=== PATIENT | female | born 1975 | race Hispanic/Latino ===

== ENCOUNTER 2019-10-01 09:40 | Inpatient (IN) | payer OTHER ==
[~2019-10-01] VITALS: Ht 167.6 cm; Wt 95.9 kg
[2019-10-01] MEDS ORDERED: SODIUM CHLORIDE 0.9% 1000ML 1,000 ML IV STA (09:41)
[2019-10-01] MEDS ORDERED: KETOROLAC TROMETHAMINE 30 MG/ML VIAL IV STA (09:41)
[2019-10-01] MEDS ORDERED: ONDANSETRON HCL INJ 2MG/ML 2ML 2 MG/ML VIAL IV STA (09:41)
--- OUTSIDE RECORDS SUMMARY | 2019-10-01 09:43 | XMS REPORT | Continuity of Care Document ---
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 Oral (F) 97.9 F 12/18/2018 [facility] Heart Rate 79 12/18/2018 [facility] Respitory Rate 16 12/18/2018 [facility] Systolic (mm Hg) 136 12/18/2018 [facility] Diastolic (mm Hg) 91 12/18/2018 [facility] Systolic (mm Hg) 143 12/18/2018 [facility] Diastolic (mm Hg) 83 12/18/2018 [facility] Respitory Rate 17 12/18/2018 [facility] Heart Rate 90 12/18/2018 [facility] Temperature Oral (F) 98.2 F 12/18/2018 [facility] Temperature Oral (F) 98.5 F 12/17/2018 [facility] Weight 97 0 12/17/2018 [facility] Respitory Rate 17 10/27/2017 [facility] Heart Rate 86 10/27/2017 [facility] Systolic (mm Hg) 113 10/27/2017 [facility] Diastolic (mm Hg) 82 10/27/2017 [facility] Temperature Oral (F) 98.5 F 10/27/2017 [facility] BMI Calculated 32.35 10/26/2017 [facility] Temperature Oral (F) 98.5 F 10/26/2017 [facility] Height 167.64 cm 10/26/2017 [facility] Weight 90.909 10/26/2017 [facility] Respitory Rate 17 10/26/2017 [facility] Systolic (mm Hg) 123 10/26/2017 [facility] Diastolic (mm Hg) 59 10/26/2017 [facility] Heart Rate 113 10/26/2017 [facility] Temperature Oral (F) 98.1 F 09/18/2017 [facility] Heart Rate 71 09/18/2017 [facility] Systolic (mm Hg) 128 09/18/2017 [facility] Diastolic (mm Hg) 75 09/18/2017 [facility] Respitory Rate 19 09/18/2017 [facility] Respitory Rate 16 09/18/2017 [facility] Heart Rate 79 09/18/2017 [facility] Systolic (mm Hg) 135 09/18/2017 [facility] Diastolic (mm Hg) 78 09/18/2017 [facility] Weight 100 09/18/2017 [facility] BMI Calculated 35.58 09/18/2017 [facility] Heart Rate 72 09/18/2017 [facility] Respitory Rate 18 09/18/2017 [facility] Height 167.64 cm 09/18/2017 [facility] Systolic (mm Hg) 144 09/18/2017 [facility] Diastolic (mm Hg) 92 09/18/2017 [facility] Temperature Oral (F) 98.3 F 09/18/2017 [facility] Systolic (mm Hg) 143 03/19/2017 [facility] Diastolic (mm Hg) 85 03/19/2017 [facility] Respitory Rate 18 03/19/2017 [facility] Heart Rate 70 03/19/2017 [facility] Temperature Oral (F) 98.1 F 03/19/2017 [facility] Temperature Oral (F) 98.1 F 03/19/2017 [facility] Weight 90.909 03/19/2017 [facility] Systolic (mm Hg) 146 03/19/2017 [facility] Diastolic (mm Hg) 105 03/19/2017 [facility] Heart Rate 71 03/19/2017 [facility] Respitory Rate 18 03/19/2017 [facility] Systolic (mm Hg) 142 03/14/2017 [facility] Diastolic (mm Hg) 88 03/14/2017 [facility] Temperature Oral (F) 98.1 F 03/14/2017 [facility] Heart Rate 84 03/14/2017 [facility] Respitory Rate 14 03/14/2017 [facility] Weight 90.909 03/13/2017 [facility] BMI Calculated 32.35 03/13/2017 [facility] Systolic (mm Hg) 146 03/13/2017 [facility] Diastolic (mm Hg) 90 03/13/2017 [facility] Height 167.64 cm 03/13/2017 [facility] Temperature Oral (F) 98.4 F 03/13/2017 [facility] Respitory Rate 20 03/13/2017 [facility] Heart Rate 80 03/13/2017 [facility] Encounters Location Location Details Encounter Type Encounter Number Reason For Visit Attending Provider ADM Date DC Date Status Source [facility] [id number] Ernst Jaswinder 03/13/2017 03/14/2017 [facility] [id number] Emily Alcanter 03/19/2017 03/19/2017 [facility] [id number] Emily Alcanter 09/18/2017 09/18/2017 [facility] [id number] Jose Luis Barbie 10/26/2017 10/27/2017 [facility] [id number] Alonso Hwang 12/17/2018 12/18/2018 [facility] [id number] Saman Vásquez 06/08/2019 06/09/2019 [facility] Procedures No Data Provided for This Section Assessment and Plan No Data Provided for This Section Plan of Care No Data Provided for This Section Social History Social History Date Source Social History TypeResponse Smoking Status Never smoker; Exposure to Tobacco Smoke None; Cigarette Smoking Last 365 Days No; Reg Smoking Cessation Counseling No entered on: 06/08/19 06/08/2019 [facility] Social History TypeResponse Smoking Status Never smoker; Exposure to Tobacco Smoke None; Cigarette Smoking Last 365 Days No; Reg Smoking Cessation Counseling No entered on: 12/17/18 12/18/2018 [facility] Family History No Data Provided for This Section Advance Directives No Data Provided for This Section Functional Status No Data Provided for This Section
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
--- OUTSIDE RECORDS SUMMARY | 2019-10-01 09:43 | XMS REPORT | Clinical Summary ---
Author Author [facility] Organization [facility] Address Unknown Phone Unavailable Care Team Providers Care Head Rigger Name Role Phone Asked, No Pcp PCP Unavailable Allergies No Known Allergies Medications End Date Status Medication Sig Dispensed Refills Start Date Active cephalexin (KEFLEX) 500 TK 1 C PO BID 0 MG capsule 7 Active gabapentin (NEURONTIN) TK ONE C PO 0 01 300 mg capsule BID 7 Active ibuprofen (ADVIL,MOTRIN) TK 1 T PO Q 6 0 03/14 600 MG tablet HOURS PRN P. 7 TK WITH FOOD Active tamsulosin (FLOMAX) 0.4 TK 1 C PO QD 30 capsule 0 1 mg capsule,extended 7 release 24hr Active ondansetron (ZOFRAN, Take 1 tablet 20 tablet 0 HYDROCHLORIDE,) 4 MG (4 mg total) 7 tablet by mouth every 8 (eight) hours as needed for nausea or vomiting. Active acetaminophen-codeine TAKE 1 TO 2 0 03/19/20 1 (TYLENOL WITH CODEINE #4) TABLETS BY 7 300-60 mg per tablet MOUTH EVERY 6 HOURS NEEDED. Active HYDROcodone-acetaminophen TAKE 1 TABLET 0 03/06 (NORCO) 5-325 mg per BY MOUTH 7 tablet EVERY 6 HOURS NEEDED P Active Problems Problem Noted Date Personal history of kidney stones 04/16/2017 Hematochezia 04/16/2017 Lethargy 04/16/2017 Urge incontinence 04/16/2017 Left ureteral stone 03/19/2017 Flank pain 03/19/2017 Nausea and vomiting 03/19/2017 Overactive bladder 03/19/2017 Family History Relation Name Status Comments Father Mother Alive Social History Date Tobacco Use Types Packs/Day Years Used Never Smoker Smokeless Tobacco: Never Used Drinks/Week oz/Week Comments Alcohol Use Defer Sex Assigned at Date Recorded Not on file Industry Job Start Date Occupation Not on file Not on file Not on file Travel End Travel History Travel Start No recent travel history available. 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
--- OUTSIDE RECORDS SUMMARY | 2019-10-01 09:43 | XMS REPORT | Summary of Care ---
Author Author [facility] Organization [facility] Address Unknown Phone Unavailable Encounter TANJA Morocho(REJI) [id number] Date(s): 03/13/17 - 03/13/17 [facility] [address] [place] [address]- [phone] Discharge Diagnosis: Calculus of ureter Discharge Disposition: Home or Self Care Attending Physician: Ernst San DO Vital Signs Most recent to 1 2 oldest [Reference Range]: Height 167.64 cm (03/13/17 5:01 PM) Temperature Oral 98.1 DegF 98.4 DegF [96.4-99.1 DegF] (03/13/17 10:17 PM) (03/13/17 5:01 PM) Blood Pressure 142/88 mmHg 146/90 mmHg [90-140/60-90 mmHg] *HI* *HI* (03/13/17 10:17 PM) (03/13/17 5:01 PM) Respiratory Rate 14 BRMIN 20 BRMIN [14-20 BRMIN] (03/13/17 10:17 PM) (03/13/17 5:01 PM) Peripheral Pulse 84 bpm 80 bpm Rate [60-100 bpm] (03/13/17 10:17 PM) (03/13/17 5:01 PM) Weight 90.909 kg (03/13/17 5:01 PM) Body Mass Index 32.35 m2 (03/13/17 5:01 PM) Problem List Condition Effective Dates Status Health Status Informan t Thyroid Resolved cancer(Confirmed) Allergies, Adverse Reactions, Alerts Substance Reaction Severity Status NKDA Active Medications Flomax 0.4 mg, 1 cap, Route: PO, Drug form: CAP, ONCE, Dosing Weight 90.909, kg, Start date: 03/13/17 21:05:00 [employer]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, Stop date: 03/13/17 21:05:00 [employer]IN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 Notes: (Same As: Flomax) "Do Not Crush" Start Date: 03/13/17 Stop Date: 03/13/17 Status: Completed Flomax 0.4 mg oral capsule 0.4 mg = 1 cap, PO, Daily, # 7 cap, 0 Refill(s) Start Date: 03/13/17 Status: Ordered Keflex 500 mg oral capsule 500 mg = 1 cap, PO, BID, X 7 day, # 14 cap, 0 Refill(s) Start Date: 03/13/17 Stop Date: 03/20/17 Status: Ordered ketOROLAC 30 mg/mL injectable solution 30 mg, 1 mL, Route: IVP, Drug form: INJ, ONCE, Dosing Weight 90.909, kg, Priorit y: STAT, Start date: 03/13/17 20:39: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 Give IM administration slowly and deeply into the muscle.Not for use > 4 days MEDICATION WASTE Product Size: 30 mgProduct Wasted: ___ mg Start Date: 03/13/17 Stop Date: 03/13/17 Status: Completed morphine Sulfate 4 mg, 1 mL, Route: IVP, Drug form: SOLN, ONCE, Dosing Weight 90.909, kg, Priorit y: STAT, Start date: 03/13/17 17:51:00 COIN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, Stop date: 03/13/17 17:51:00 COIN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 Notes: (Same as:MORPhine Sulfate) Start Date: 03/13/17 Stop Date: 03/13/17 Status: Completed Motrin 600 mg oral tablet 600 mg = 1 tab, PO, Q6H, PRN Pain, take with food, # 30 tab, 0 Refill(s) Start Date: 03/13/17 Stop Date: 03/13/17 Status: Completed ondansetron 4 mg, 2 mL, Route: IVP, Drug form: INJ, ONCE, Dosing Weight 90.909, kg, Priority : STAT, Start date: 03/13/17 17:51:00 COIN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, Stop date: 03/13/17 17:51:00 COIN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 Notes: (Same as: Zofran) MEDICATION WASTE Product Size: 4 mgProduct Was jessica: ___ mg Start Date: 03/13/17 Stop Date: 03/13/17 Status: Completed Saline Flush 0.9% 10 mL, Route: IVP, Drug Form: INJ, Dosing Weight 90.909, kg, PRN, PRN Line Flush , Start date: 03/13/17 17:51:00 COIN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, Duration: 30 day, Stop date: 04/12/17 17:50 :00 COIN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 Notes: (Same as: BD Posiflush) Start Date: 03/13/17 Stop Date: 03/13/17 Status: Discontinued Sodium Chloride 0.9% (Bolus) IV 1,000 mL, 2,000 ml/hr, Infuse Over: 30 minutes, Route: IV, 1,000, Drug form: INJ , ONCE, Priority: STAT, Dosing Weight 90.909 kg, Start date: 03/13/17 17:51:[address], Duration: 1 doses or times, Stop date: 03/13/17 17:51:00 COIN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 Start Date: 03/13/17 Stop Date: 03/13/17 Status: Completed Tylenol with Codeine #3 oral tablet 1 - 2 tab, PO, Q4H, PRN Pain, X 2 day, # 20 tab, 0 Refill(s) Start Date: 03/13/17 Stop Date: 03/15/17 Status: Completed Zofran ODT 4 mg, 1 tab, Route: PO, Drug form: TABDIS, ONCE, Dosing Weight 90.909, kg, Prior ity: STAT, Start date: 03/13/17 22:24:00 COIN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, Stop date: 03/13/17 22:24:00 COIN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 Notes: (Same as: Zofran ODT) Start Date: 03/13/17 Stop Date: 03/13/17 Status: Completed Results ELECTROLYTES Most recent to 1 oldest [Reference Range]: Sodium Lvl [135-145 139 mEq/L mEq/L] (03/13/17 6:04 PM) Potassium Lvl 3.7 mEq/L [3.5-5.1 mEq/L] (03/13/17 6:04 PM) Chloride Lvl [95-109 108 mEq/L mEq/L] (03/13/17 6:04 PM) CO2 [24-32 mEq/L] 24 mEq/L (03/13/17 6:04 PM) AGAP [10.0-20.0 10.7 mEq/L mEq/L] (03/13/17 6:04 PM) CHEM PANEL Most recent to 1 oldest [Reference Range]: Creatinine Lvl 0.80 mg/dL [0.50-1.40 mg/dL] (03/13/17 6:04 PM) eGFR 91 mL/min/1.73m2 1 *NA* (03/13/17:04 PM) BUN [7-22 mg/dL] 10 mg/dL (03/13/17 6:04 PM) B/C Ratio [6-25] 12 (03/13/17 6:04 PM) Glucose Lvl [70-99 119 mg/dL mg/dL] *HI* (03/13/17 6:04 PM) Total Protein 7.3 g/dL [6.4-8.4 g/dL] (03/13/17:04 PM) Albumin Lvl [3.5-5.0 3.6 g/dL g/dL] (03/13/17 6:04 PM) Globulin [2.7-4.2 3.7 g/dL g/dL] (03/13/17 6:04 PM) A/G Ratio [0.7-1.6] 1.0 (03/13/17 6:04 PM) Calcium Lvl 9.4 mg/dL [8.5-10.5 mg/dL] (03/13/17 6:04 PM) ALT [0-65 unit/L] 101 unit/L *HI* (03/13/17 6:04 PM) AST [0-37 unit/L] 57 unit/L *HI* (03/13/17 6:04 PM) Alk Phos [39-136 89 unit/L unit/L] (03/13/17 6:04 PM) Bili Total [0.2-1.3 0.9 mg/dL mg/dL] (03/13/17 6:04 PM) Lipase Lvl [73-393 110 unit/L unit/L] (03/13/17 6:04 PM) 1Result Comment: The eGFR is calculated [...] be mul tiplied by the estimated BMI. CARDIAC ENZYMES Most recent to 1 oldest [Reference Range]: Total CK [12-191 100 unit/L unit/L] (03/13/17 6:04 PM) CK MB [0.5-3.6 1.2 ng/mL ng/mL] (03/13/17 6:04 PM) CK MB Index 1.2 [0.0-2.5] (03/13/17 6:04 PM) Troponin-I 0.03 ng/mL [0.00-0.40 ng/mL] (03/13/17 6:04 PM) URINE CHEM Most recent to 1 oldest [Reference Range]: U Preg [Negative] Negative (03/13/17 6:04 PM) URINE AND STOOL Most recent to 1 oldest [Reference Range]: UA Turbidity [Clear] Slight *ABN* (03/13/17 6:04 PM) UA Color [Yellow] Yellow *NA* (03/13/17 6:04 PM) UA pH [5.0-8.0] 6.0 (03/13/17 6:04 PM) UA Spec Grav 1.015 [<=1.030] (03/13/17 6:04 PM) UA Glucose [Negative Negative mg/dL mg/dL] *NA* (03/13/17 6:04 PM) UA Blood [Negative] Large *ABN* (03/13/17 6:04 PM) UA Ketones [Negative Negative mg/dL mg/dL] *NA* (03/13/17 6:04 PM) UA Protein [Negative Negative mg/dL mg/dL] (03/13/17 6:04 PM) UA Urobilinogen <=1.0 mg/dL [0.1-1.0 mg/dL] *NA* (03/13/17 6:04 PM) UA Bili [Negative] Negative *NA* (03/13/17 6:04 PM) UA Leuk Est Negative [Negative] (03/13/17 6:04 PM) UA Nitrite Negative [Negative] (03/13/17 6:04 PM) UA WBC [0-5 /HPF] 15 /HPF *HI* (03/13/17 6:04 PM) UA RBC [0-2 /HPF] >182 /HPF *HI* (03/13/17 6:04 PM) UA Bacteria [None Occasional /HPF Seen /HPF] *NA* (03/13/17 6:04 PM) UA Sq Epi [Few /LPF] Few /LPF *NA* (03/13/17 6:04 PM) HEMATOLOGY Most recent to 1 oldest [Reference Range]: WBC [3.7-10.4 K/CMM] 10.3 K/CMM (03/13/17 6:04 PM) RBC [4.20-5.40 4.74 M/CMM M/CMM] (03/13/17 6:04 PM) Hgb [12.0-16.0 g/dL] 13.7 g/dL (03/13/17 6:04 PM) Hct [36.0-48.0 %] 41.1 % (03/13/17 6:04 PM) MCV [80.0-98.0 fL] 86.9 fL (03/13/17 6:04 PM) MCH [27.0-31.0 pg] 29.0 pg (03/13/17 6:04 PM) MCHC [32.0-36.0 33.4 g/dL g/dL] (03/13/17 6:04 PM) RDW [11.5-14.5 %] 16.1 % *HI* (03/13/17 6:04 PM) Platelet [133-450 219 K/CMM K/CMM] (03/13/17 6:04 PM) MPV [7.4-10.4 fL] 9.6 fL (03/13/17 6:04 PM) Segs [45.0-75.0 %] 77.8 % *HI* (03/13/17 6:04 PM) Lymphocytes 14.6 % [20.0-40.0 %] *LOW* (03/13/17 6:04 PM) Monocytes [2.0-12.0 5.6 % %] (03/13/17 6:04 PM) Eosinophils [0.0-4.0 1.0 % %] (03/13/17 6:04 PM) Basophils [0.0-1.0 1.0 % %] (03/13/17 6:04 PM) Segs-Bands # 8.0 K/CMM [1.5-8.1 K/CMM] (03/13/17 6:04 PM) Lymphocytes # 1.5 K/CMM [1.0-5.5 K/CMM] (03/13/17 6:04 PM) Monocytes # [0.0-0.8 0.6 K/CMM K/CMM] (03/13/17 6:04 PM) Eosinophils # 0.1 K/CMM [0.0-0.5 K/CMM] (03/13/17 6:04 PM) Basophils # [0.0-0.2 0.1 K/CMM K/CMM] (03/13/17 6:04 PM) Immunizations No data available for this section Procedures No data available for this section Social History Social History Type Response Smoking Status Never smoker; Exposure to T obacco Smoke None; Cigarette Smoking Last 365 Days No; Reg Smoking Cessation Counseli ng No Assessment and Plan No data available for this section
--- OUTSIDE RECORDS SUMMARY | 2019-10-01 09:43 | XMS REPORT | Summary of Care ---
Author Author [facility] o[facility]ital Organization [facility] Address Unknown Phone Unavailable Encounter HQ Rashawn(FIN) [id number] Date(s): 10/26/17 - 10/26/17 [facility] [address] [place] [address]- [phone] Encounter Diagnosis Dysmenorrhea (Discharge Diagnosis) - 10/26/17 Abnormal vaginal bleeding (Discharge Diagnosis) - 10/26/17 Discharge Disposition: Home or Self Care Attending Physician: Jose Luis Valentin MD Vital Signs Most recent to 1 2 oldest [Reference Range]: Height 167.64 cm (10/26/17 5:10 PM) Temperature Oral 98.5 DegF 98.5 DegF [96.4-99.1 DegF] (10/26/17 10:13 PM) (10/26/17 5:10 PM) Blood Pressure 113/82 mmHg 123/59 mmHg [90-140/60-90 mmHg] (10/26/17 10:13 PM) (10/26/17 5:10 PM) Respiratory Rate 17 BRMIN 17 BRMIN [14-20 BRMIN] (10/26/17 10:13 PM) (10/26/17 5:10 PM) Peripheral Pulse 86 bpm 113 bpm Rate [60-100 bpm] (10/26/17 10:13 PM) *HI* (10/26/17 5:10 PM) Weight 90.909 kg (10/26/17 5:10 PM) Body Mass Index 32.35 m2 (10/26/17 5:10 PM) Problem List Condition Effective Dates Status Health Status Informan t Thyroid Resolved cancer(Confirmed) Allergies, Adverse Reactions, Alerts Substance Reaction Severity Status NKDA Active Medications ibuprofen 800 mg, Route: PO, Drug form: TAB, ONCE, Dosing Weight 90.909, kg, Priority: STA T, Start date: 10/26/17 19:02:00 CDT, Stop date: 10/26/17 19:02:00 CDT Start Date: 10/26/17 Stop Date: 10/26/17 Status: Completed morphine Sulfate 4 mg, 1 mL, Route: IVP, Drug form: SOLN, ONCE, Dosing Weight 90.909, kg, Priorit y: STAT, Start date: 10/26/17 22:07:00 CDT, Stop date: 10/26/17 22:07:00 CDT Notes: (Same as:MORPhine Sulfate) Start Date: 10/26/17 Stop Date: 10/26/17 Status: Completed [place] 10/325 oral tablet 1 tab, Route: PO, Drug Form: TAB, Dosing Weight 90.909, kg, ONCE, STAT, Start da te: 10/26/17 19:02:00 CDT, Stop date: 10/26/17 19:02:00 CDT Start Date: 10/26/17 Stop Date: 10/26/17 Status: Completed Tylenol with Codeine #3 oral tablet 1 tab, PO, Q6H, PRN Pain Score 4-6, X 5 day, # 30 tab, 0 Refill(s) Start Date: 10/26/17 Stop Date: 10/31/17 Status: Ordered Results ELECTROLYTES Most recent to 1 oldest [Reference Range]: Sodium Lvl [135-145 138 mEq/L mEq/L] (10/26/17 5:51 PM) Potassium Lvl 3.6 mEq/L [3.5-5.1 mEq/L] (10/26/17 5:51 PM) Chloride Lvl [95-109 104 mEq/L mEq/L] (10/26/17 5:51 PM) CO2 [24-32 mEq/L] 25 mEq/L (10/26/17 5:51 PM) AGAP [10.0-20.0 12.6 mEq/L mEq/L] (10/26/17 5:51 PM) CHEM PANEL Most recent to 1 oldest [Reference Range]: Creatinine Lvl 0.70 mg/dL [0.50-1.40 mg/dL] (10/26/17 5:51 PM) eGFR 107 mL/min/1.73m2 1 *NA* (10/26/17 5:51 PM) BUN [7-22 mg/dL] 9 mg/dL (10/26/17 5:51 PM) B/C Ratio [6-25] 13 (10/26/17 5:51 PM) Glucose Lvl [70-99 96 mg/dL mg/dL] (10/26/17 5:51 PM) Total Protein 7.6 g/dL [6.4-8.4 g/dL] (10/26/17 5:51 PM) Albumin Lvl [3.5-5.0 3.5 g/dL g/dL] (10/26/17 5:51 PM) Globulin [2.7-4.2 4.1 g/dL g/dL] (10/26/17 5:51 PM) A/G Ratio [0.7-1.6] 0.9 (10/26/17 5:51 PM) Calcium Lvl 9.5 mg/dL [8.5-10.5 mg/dL] (10/26/17 5:51 PM) ALT [0-65 unit/L] 69 unit/L *HI* (10/26/17 5:51 PM) AST [0-37 unit/L] 28 unit/L (10/26/17 5:51 PM) Alk Phos [39-136 96 unit/L unit/L] (10/26/17 5:51 PM) Bili Total [0.2-1.3 0.6 mg/dL mg/dL] (10/26/17 5:51 PM) 1Result Comment: The eGFR is calculated [...] be mul tiplied by the estimated BMI. ENDOCRINOLOGY Most recent to 1 oldest [Reference Range]: S Preg [Negative] Negative *NA* (10/26/17 5:51 PM) URINE AND STOOL Most recent to 1 oldest [Reference Range]: UA Turbidity [Clear] Clear (10/26/17 5:51 PM) UA Color [Yellow] Yellow *NA* (10/26/17 5:51 PM) UA pH [5.0-8.0] 5.0 (10/26/17 5:51 PM) UA Spec Grav 1.017 [<=1.030] (10/26/17 5:51 PM) UA Glucose [Negative Negative mg/dL mg/dL] *NA* (10/26/17 5:51 PM) UA Blood [Negative] Large *ABN* (10/26/17 5:51 PM) UA Ketones [Negative Trace mg/dL mg/dL] *ABN* (10/26/17 5:51 PM) UA Protein [Negative 30 mg/dL mg/dL] *ABN* (10/26/17 5:51 PM) UA Urobilinogen <=1.0 mg/dL [0.1-1.0 mg/dL] *NA* (10/26/17 5:51 PM) UA Bili [Negative] Negative *NA* (10/26/17 5:51 PM) UA Leuk Est Negative [Negative] (10/26/17 5:51 PM) UA Nitrite Negative [Negative] (10/26/17 5:51 PM) UA WBC [0-5 /HPF] 1 /HPF (10/26/17 5:51 PM) UA RBC [0-2 /HPF] >182 /HPF *HI* (10/26/17 5:51 PM) UA Bacteria [None Occasional /HPF Seen /HPF] *NA* (10/26/17 5:51 PM) UA Sq Epi [Few /LPF] Occasional /LPF *NA* (10/26/17 5:51 PM) UA Mucus [None Seen Few /LPF /LPF] *NA* (10/26/17 5:51 PM) HEMATOLOGY Most recent to 1 oldest [Reference Range]: WBC [3.7-10.4 K/CMM] 11.1 K/CMM *HI* (10/26/17 5:51 PM) RBC [4.20-5.40 5.04 M/CMM M/CMM] (10/26/17 5:51 PM) Hgb [12.0-16.0 g/dL] 13.4 g/dL (10/26/17 5:51 PM) Hct [36.0-48.0 %] 41.1 % (10/26/17 5:51 PM) MCV [80.0-98.0 fL] 81.6 fL (10/26/17 5:51 PM) MCH [27.0-31.0 pg] 26.5 pg *LOW* (10/26/17 5:51 PM) MCHC [32.0-36.0 32.5 g/dL g/dL] (10/26/17 5:51 PM) RDW [11.5-14.5 %] 21.4 % *HI* (10/26/17 5:51 PM) MPV [7.4-10.4 fL] 9.4 fL (10/26/17 5:51 PM) Platelet [133-450 270 K/CMM K/CMM] (10/26/17 5:51 PM) Segs [45.0-75.0 %] 74.1 % (10/26/17 5:51 PM) Lymphocytes 18.1 % [20.0-40.0 %] *LOW* (10/26/17 5:51 PM) Monocytes [2.0-12.0 6.2 % %] (10/26/17 5:51 PM) Eosinophils [0.0-4.0 1.0 % %] (10/26/17 5:51 PM) Basophils [0.0-1.0 0.6 % %] (10/26/17 5:51 PM) Segs-Bands # 8.2 K/CMM [1.5-8.1 K/CMM] *HI* (10/26/17 5:51 PM) Lymphocytes # 2.0 K/CMM [1.0-5.5 K/CMM] (10/26/17 5:51 PM) Monocytes # [0.0-0.8 0.7 K/CMM K/CMM] (10/26/17 5:51 PM) Eosinophils # 0.1 K/CMM [0.0-0.5 K/CMM] (10/26/17 5:51 PM) Basophils # [0.0-0.2 0.1 K/CMM K/CMM] (10/26/17 5:51 PM) Immunizations No data available for this section Procedures No data available for this section Social History Social History Type Response Smoking Status Never smoker; Exposure to T obacco Smoke None; Cigarette Smoking Last 365 Days No; Reg Smoking Cessation Counseli ng No entered on: 10/26/17 Assessment and Plan No data available for this section
--- OUTSIDE RECORDS SUMMARY | 2019-10-01 09:43 | XMS REPORT | Summary of Care ---
Author Author [facility] Organization [facility] Address Unknown Phone Unavailable Encounter HQ Rashawn(REJI) [id number] Date(s): 06/08/19 - 06/08/19 [facility] [address] [place] [address]- Encounter Diagnosis Urolithiasis (Discharge Diagnosis) - 06/08/19 Flank pain (Discharge Diagnosis) - 06/08/19 Discharge Disposition: Home or Self Care Attending Physician: Saman Vásquez DO Vital Signs Most recent to 1 2 oldest [Reference Range]: Temperature Oral 98.9 DegF 98 DegF [96.4-99.1 DegF] (06/08/19 8:18 PM) (06/08/19 2:18 PM) Blood Pressure 136/82 mmHg 142/99 mmHg [90-140/60-90 mmHg] (06/08/19 8:18 PM) *HI* (06/08/19 2:18 PM) Respiratory Rate 16 BRMIN 20 BRMIN [14-20 BRMIN] (06/08/19 8:18 PM) (06/08/19 2:18 PM) Peripheral Pulse 72 bpm 66 bpm Rate [60-100 bpm] (06/08/19 8:18 PM) (06/08/19 2:18 PM) Weight 118.182 kg (06/08/19 2:18 PM) Problem List Condition Effective Dates Status Health Status Informan t Thyroid Resolved cancer(Confirmed) Allergies, Adverse Reactions, Alerts No Known Medication Allergies Medications Flomax 0.4 mg oral capsule 0.4 mg = 1 cap, PO, Daily, # 7 cap, 0 Refill(s) Start Date: 06/08/19 Stop Date: 06/15/19 Status: Ordered Motrin 800 mg oral tablet 800 mg = 1 tab, PO, Q8H, PRN Pain, Take with food, X 5 day, # 30 tab, 0 Refill(s ) Start Date: 06/08/19 Stop Date: 06/13/19 Status: Ordered Saline Flush 0.9% 10 mL, Route: IVP, Drug Form: INJ, Dosing Weight 97, kg, PRN, PRN Line Flush, St art date: 06/08/19 14:21:00 DROP MAN, Duration: 30 day, Stop date: 07/08/19 14:20:00 DROP MAN, 0 Notes: (Same as: BD Posiflush) Start Date: 06/08/19 Stop Date: 06/08/19 Status: Discontinued Tylenol with Codeine #3 oral tablet 1 tab, PO, Q6H, PRN Pain Score 4-6, X 5 day, # 30 tab, 0 Refill(s) Start Date: 06/08/19 Stop Date: 06/13/19 Status: Ordered Zofran ODT 4 mg oral tablet, disintegrating 4 mg = 1 tab, PO, BID, PRN Nausea and Vomiting, Dissolve tab under tongue, # 10 tab, 0 Refill(s) Start Date: 06/08/19 Stop Date: 06/13/19 Status: Ordered Results Most recent to 1 oldest [Reference Range]: Neutrophils # 4.9 K/CMM [1.5-8.1 K/CMM] (06/08/19 2:30 PM) Lymphocytes # 3.2 K/CMM [1.0-5.5 K/CMM] (06/08/19 2:30 PM) Monocytes # [0.0-0.8 0.5 K/CMM K/CMM] (06/08/19 2:30 PM) Eosinophils # 0.2 K/CMM [0.0-0.5 K/CMM] (06/08/19 2:30 PM) Basophils # [0.0-0.2 0.1 K/CMM K/CMM] (06/08/19 2:30 PM) eGFR 110 mL/min/1.73m2 1 *NA* (06/08/19 2:30 PM) A/G Ratio [0.7-1.6] 1.0 (06/08/19 2:30 PM) Albumin Lvl [3.5-5.0 3.7 g/dL g/dL] (06/08/19 2:30 PM) Alk Phos [39-136 99 unit/L unit/L] (06/08/19 2:30 PM) ALT [0-65 unit/L] 46 unit/L (06/08/19 2:30 PM) AGAP [10.0-20.0 6.6 mEq/L mEq/L] *LOW* (06/08/19 2:30 PM) AST [0-37 unit/L] 20 unit/L (06/08/19 2:30 PM) B/C Ratio [6-25] 15 (06/08/19 2:30 PM) Basophils [0.0-1.0 0.7 % %] (06/08/19 2:30 PM) BUN [7-22 mg/dL] 9 mg/dL (06/08/19 2:30 PM) Calcium Lvl 9.8 mg/dL [8.5-10.5 mg/dL] (06/08/19 2:30 PM) Chloride Lvl [95-109 110 mEq/L mEq/L] *HI* (06/08/19 2:30 PM) CO2 [24-32 mEq/L] 26 mEq/L (06/08/19 2:30 PM) Creatinine Lvl 0.62 mg/dL [0.50-1.40 mg/dL] (06/08/19 2:30 PM) Eosinophils [0.0-4.0 2.7 % %] (06/08/19 2:30 PM) Globulin [2.7-4.2 3.7 g/dL g/dL] (06/08/19 2:30 PM) Glucose Lvl [70-99 103 mg/dL mg/dL] *HI* (06/08/19 2:30 PM) Hct [36.0-48.0 %] 43.5 % (06/08/19 2:30 PM) Hgb [12.0-16.0 g/dL] 14.6 g/dL (06/08/19 2:30 PM) INR [0.85-1.17] 0.96 (06/08/19 2:30 PM) Potassium Lvl 3.6 mEq/L [3.5-5.1 mEq/L] (06/08/19 2:30 PM) Lipase Lvl [73-393 90 unit/L unit/L] (06/08/19 2:30 PM) Lymphocytes 36.4 % [20.0-40.0 %] (06/08/19 2:30 PM) MCH [27.0-31.0 pg] 30.4 pg (06/08/19 2:30 PM) MCHC [32.0-36.0 33.5 g/dL g/dL] (06/08/19 2:30 PM) MCV [80.0-98.0 fL] 90.7 fL (06/08/19 2:30 PM) Monocytes [2.0-12.0 5.3 % %] (06/08/19 2:30 PM) MPV [7.4-10.4 fL] 9.7 fL (06/08/19 2:30 PM) Sodium Lvl [135-145 139 mEq/L mEq/L] (06/08/19 2:30 PM) Platelet [133-450 239 K/CMM K/CMM] (06/08/19 2:30 PM) Segs [45.0-75.0 %] 54.9 % (06/08/19 2:30 PM) Total Protein 7.4 g/dL [6.4-8.4 g/dL] (06/08/19 2:30 PM) PT [12.0-14.7 12.8 seconds seconds] (06/08/19 2:30 PM) PTT [22.9-35.8 26.0 seconds seconds] (06/08/19 2:30 PM) RBC [4.20-5.40 4.80 M/CMM M/CMM] (06/08/19 2:30 PM) RDW [11.5-14.5 %] 14.7 % *HI* (06/08/19 2:30 PM) S Preg [Negative] Negative *NA* (06/08/19 2:30 PM) Bili Total [0.2-1.3 0.9 mg/dL mg/dL] (06/08/19 2:30 PM) UA Bili [Negative] Negative *NA* (06/08/19 2:30 PM) UA Blood [Negative] Large *ABN* (06/08/19 2:30 PM) UA Color Red *NA* (06/08/19 2:30 PM) UA Glucose [Negative Negative mg/dL mg/dL] *NA* (06/08/19 2:30 PM) UA Ketones [Negative Negative mg/dL mg/dL] *NA* (06/08/19 2:30 PM) UA Leuk Est Negative [Negative] (06/08/19 2:30 PM) UA Nitrite Negative [Negative] (06/08/19 2:30 PM) UA pH [5.0-8.0] 6.0 (06/08/19 2:30 PM) UA Protein [Negative 100 mg/dL mg/dL] *ABN* (06/08/19 2:30 PM) UA RBC [0-2 /HPF] >182 /HPF *HI* (06/08/19 2:30 PM) UA Spec Grav 1.025 [<=1.030] (06/08/19 2:30 PM) UA Sq Epi None Seen *NA* (06/08/19 2:30 PM) UA Turbidity [Clear] Marked *ABN* (06/08/19 2:30 PM) UA Urobilinogen <=1.0 mg/dL [0.1-1.0 mg/dL] *NA* (06/08/19 2:30 PM) UA [place] Yeast [None Many /HPF Seen /HPF] *ABN* (06/08/19 2:30 PM) WBC [3.7-10.4 K/CMM] 8.9 K/CMM (06/08/19 2:30 PM) 1Result Comment: The eGFR is calculated [...] Smoking Cessation Counseli ng No entered on: 06/08/19 Assessment and Plan No data available for this section
--- OUTSIDE RECORDS SUMMARY | 2019-10-01 09:43 | XMS REPORT | Summary of Care ---
Author Author [facility] Organization [facility] Address Unknown Phone Unavailable Encounter TANJA Morocho(REJI) [id number] Date(s): 03/18/17 - 03/19/17 [facility] [address] [place] [address]- Discharge Diagnosis: Kidney stone on left side Discharge Disposition: Home or Self Care Attending Physician: Emily Abbasi MD Vital Signs Most recent to 1 2 oldest [Reference Range]: Temperature Oral 98.1 DegF 98.1 DegF [96.4-99.1 DegF] (03/19/17 12:44 AM) (03/18/17 8:45 PM) Blood Pressure 143/85 mmHg 146/105 mmHg [90-140/60-90 mmHg] *HI* *HI* (03/19/17 12:44 AM) (03/18/17 8:45 PM) Respiratory Rate 18 BRMIN 18 BRMIN [14-20 BRMIN] (03/19/17 12:44 AM) (03/18/17 8:45 PM) Peripheral Pulse 70 bpm 71 bpm Rate [60-100 bpm] (03/19/17 12:44 AM) (03/18/17 8:45 PM) Weight 90.909 kg (03/18/17 8:45 PM) Problem List Condition Effective Dates Status Health Status Informan t Thyroid Resolved cancer(Confirmed) Allergies, Adverse Reactions, Alerts Substance Reaction Severity Status NKDA Active Medications ketOROLAC 30 mg/mL injectable solution 30 mg, Route: IV, ONCE, Dosing Weight 90.909, kg, Start date: 03/18/17 23:08:00 GATE AGENT, Stop date: 03/18/17 23:08:00 GATE AGENT Start Date: 03/18/17 Stop Date: 03/18/17 Status: Completed morphine Sulfate 4 mg, Route: IVP, ONCE, Dosing Weight 90.909, kg, Start date: 03/19/17 0:19:[address], Stop date: 03/19/17 0:19:00 GATE AGENT Start Date: 03/19/17 Stop Date: 03/19/17 Status: Completed morphine Sulfate 4 mg, 1 mL, Route: IVP, Drug form: SOLN, ONCE, Dosing Weight 90.909, kg, Priorit y: STAT, Start date: 03/18/17 20:47:00 GATE AGENT, Stop date: 03/18/17 20:47:00 GATE AGENT Notes: (Same as:MORPhine Sulfate) Start Date: 03/18/17 Stop Date: 03/18/17 Status: Completed ondansetron 4 mg, 2 mL, Route: IVP, Drug form: INJ, ONCE, Dosing Weight 90.909, kg, Priority : STAT, Start date: 03/18/17 20:47:00 GATE AGENT, Stop date: 03/18/17 20:47:00 GATE AGENT Notes: (Same as: Adonis) MEDICATION WASTE Product Size: 4 mgProduct Was jessica: ___ mg Start Date: 03/18/17 Stop Date: 03/18/17 Status: Completed Saline Flush 0.9% 10 mL, Route: IVP, Drug Form: INJ, Dosing Weight 90.909, kg, PRN, PRN Line Flush , Start date: 03/18/17 20:47:00 GATE AGENT, Duration: 30 day, Stop date: 04/17/17 20:46 :00 GATE AGENT Notes: (Same as: BD Posiflush) Start Date: 03/18/17 Stop Date: 03/19/17 Status: Discontinued Sodium Chloride 0.9% (Bolus) IV 1,000 mL, 2,000 ml/hr, Infuse Over: 30 minutes, Route: IV, 1,000, Drug form: INJ , ONCE, Priority: STAT, Dosing Weight 90.909 kg, Start date: 03/18/17 20:47:[address], Stop date: 03/18/17 20:47:00 GATE AGENT Start Date: 03/18/17 Stop Date: 03/18/17 Status: Completed Tylenol with Codeine #4 oral tablet 1 - 2 tab, PO, Q6H, PRN Pain, X 4 day, # 32 tab, 0 Refill(s) Start Date: 03/19/17 Stop Date: 03/23/17 Status: Ordered Zofran ODT 4 mg oral tablet, disintegrating 4 mg = 1 tab, PO, BID, PRN Nausea and Vomiting, Dissolve tab under tongue, # 6 t ab, 0 Refill(s) Start Date: 03/19/17 Stop Date: 03/22/17 Status: Ordered Results ELECTROLYTES Most recent to 1 oldest [Reference Range]: Sodium Lvl [135-145 136 mEq/L mEq/L] (03/18/17 9:34 PM) Potassium Lvl 3.2 mEq/L [3.5-5.1 mEq/L] *LOW* (03/18/17 9:34 PM) Chloride Lvl [95-109 102 mEq/L mEq/L] (03/18/17 9:34 PM) CO2 [24-32 mEq/L] 24 mEq/L (03/18/17 9:34 PM) AGAP [10.0-20.0 13.2 mEq/L mEq/L] (03/18/17 9:34 PM) CHEM PANEL Most recent to 1 oldest [Reference Range]: Creatinine Lvl 0.86 mg/dL [0.50-1.40 mg/dL] (03/18/17 9:34 PM) eGFR 84 mL/min/1.73m2 1 *NA* (03/18/17 9:34 PM) BUN [7-22 mg/dL] 10 mg/dL (03/18/17 9:34 PM) B/C Ratio [6-25] 12 (03/18/17 9:34 PM) Glucose Lvl [70-99 96 mg/dL mg/dL] (03/18/17 9:34 PM) Total Protein 7.5 g/dL [6.4-8.4 g/dL] (03/18/17 9:34 PM) Albumin Lvl [3.5-5.0 3.1 g/dL g/dL] *LOW* (03/18/17 9:34 PM) Globulin [2.7-4.2 4.4 g/dL g/dL] *HI* (03/18/17 9:34 PM) A/G Ratio [0.7-1.6] 0.7 (03/18/17 9:34 PM) Calcium Lvl 9.3 mg/dL [8.5-10.5 mg/dL] (03/18/17 9:34 PM) ALT [0-65 unit/L] 54 unit/L (03/18/17 9:34 PM) AST [0-37 unit/L] 23 unit/L (03/18/17 9:34 PM) Alk Phos [39-136 103 unit/L unit/L] (03/18/17 9:34 PM) Bili Total [0.2-1.3 0.8 mg/dL mg/dL] (03/18/17 9:34 PM) Lipase Lvl [73-393 217 unit/L unit/L] (03/18/17 9:34 PM) 1Result Comment: The eGFR is calculated [...] [Reference Range]: S Preg [Negative] Negative *NA* (03/18/17 9:34 PM) URINE AND STOOL Most recent to 1 oldest [Reference Range]: UA Turbidity [Clear] Clear (03/18/17 9:46 PM) UA Color [Yellow] Yellow *NA* (03/18/17 9:46 PM) UA pH [5.0-8.0] 5.0 (03/18/17 9:46 PM) UA Spec Grav 1.026 [<=1.030] (03/18/17 9:46 PM) UA Glucose [Negative Negative mg/dL mg/dL] *NA* (03/18/17 9:46 PM) UA Blood [Negative] Small *ABN* (03/18/17 9:46 PM) UA Ketones [Negative 80 mg/dL mg/dL] *ABN* (03/18/17 9:46 PM) UA Protein [Negative 30 mg/dL mg/dL] *ABN* (03/18/17 9:46 PM) UA Urobilinogen <=1.0 mg/dL [0.1-1.0 mg/dL] *NA* (03/18/17 9:46 PM) UA Bili [Negative] Negative *NA* (03/18/17 9:46 PM) UA Leuk Est Negative [Negative] (03/18/17 9:46 PM) UA Nitrite Negative [Negative] (03/18/17 9:46 PM) UA WBC [0-5 /HPF] 4 /HPF (03/18/17 9:46 PM) UA RBC [0-2 /HPF] 6 /HPF *HI* (03/18/17 9:46 PM) UA Sq Epi [Few /LPF] Occasional /LPF *NA* (03/18/17 9:46 PM) UA CaOx Odalys [None Occasional /HPF Seen /HPF] *NA* (03/18/17 9:46 PM) UA Mucus [None Seen Few /LPF /LPF] *NA* (03/18/17 9:46 PM) HEMATOLOGY Most recent to 1 oldest [Reference Range]: WBC [3.7-10.4 K/CMM] 8.5 K/CMM (03/18/17 9:34 PM) RBC [4.20-5.40 4.53 M/CMM M/CMM] (03/18/17 9:34 PM) Hgb [12.0-16.0 g/dL] 13.0 g/dL (03/18/17 9:34 PM) Hct [36.0-48.0 %] 38.3 % (03/18/17 9:34 PM) MCV [80.0-98.0 fL] 84.5 fL (03/18/17 9:34 PM) MCH [27.0-31.0 pg] 28.8 pg (03/18/17 9:34 PM) MCHC [32.0-36.0 34.1 g/dL g/dL] (03/18/17 9:34 PM) RDW [11.5-14.5 %] 15.6 % *HI* (03/18/17 9:34 PM) Platelet [133-450 257 K/CMM K/CMM] (03/18/17 9:34 PM) MPV [7.4-10.4 fL] 9.3 fL (03/18/17 9:34 PM) Segs [45.0-75.0 %] 69.8 % (03/18/17 9:34 PM) Lymphocytes 21.4 % [20.0-40.0 %] (03/18/17 9:34 PM) Monocytes [2.0-12.0 6.7 % %] (03/18/17 9:34 PM) Eosinophils [0.0-4.0 1.6 % %] (03/18/17 9:34 PM) Basophils [0.0-1.0 0.5 % %] (03/18/17 9:34 PM) Segs-Bands # 5.9 K/CMM [1.5-8.1 K/CMM] (03/18/17 9:34 PM) Lymphocytes # 1.8 K/CMM [1.0-5.5 K/CMM] (03/18/17 9:34 PM) Monocytes # [0.0-0.8 0.6 K/CMM K/CMM] (03/18/17 9:34 PM) Eosinophils # 0.1 K/CMM [0.0-0.5 K/CMM] (03/18/17 9:34 PM) Immunizations No data available for this section Procedures No data available for this section Social History Social History Type Response Smoking Status Never smoker; Exposure to T obacco Smoke None; Cigarette Smoking Last 365 Days No; Reg Smoking Cessation Counseli ng No Assessment and Plan No data available for this section
--- OUTSIDE RECORDS SUMMARY | 2019-10-01 09:43 | XMS REPORT | Summary of Care ---
Author Author [facility] Address Unknown Phone Unavailable Encounter HQ Rashawn(FIN) [id number] Date(s): 09/18/17 - 09/18/17 [facility] [address] [place] [address]- Encounter Diagnosis Fibroids (Discharge Diagnosis) - 09/18/17 Abdominal pain in female (Discharge Diagnosis) - 09/18/17 Discharge Disposition: Home or Self Care Attending Physician: Emily Abbasi MD Vital Signs 1 2 3 Most recent to oldest [Reference Range]: 167.64 cm (09/18/17 8:37 AM) Height 98.1 DegF (09/18/17 1:37 PM) 98.3 DegF (09/18/17 8:37 AM) Temperature Oral [96.4-99.1 DegF] 128/75 mmHg (09/18/17 1:37 PM) 135/78 mmHg (09/18/17 10:56 AM) 144/92 mmHg *HI* (09/18/17 8:37 AM) Blood Pressure [90-140/60-90 mmHg] 19 BRMIN (09/18/17 1:37 PM) 16 BRMIN (09/18/17 10:56 AM) 18 BRMIN (09/18/17 8:37 AM) Respiratory Rate [14-20 BRMIN] 71 bpm (09/18/17 1:37 PM) 79 bpm (09/18/17 10:56 AM) 72 bpm (09/18/17 8:37 AM) Peripheral Pulse Rate [60-100 bpm] 100 kg (09/18/17 8:37 AM) Weight 35.58 m2 (09/18/17 8:37 AM) Body Mass Index Problem List Condition Effective Dates Status Health Status Informan t Thyroid Resolved cancer(Confirmed) Allergies, Adverse Reactions, Alerts Substance Reaction Severity Status NKDA Active Medications acetaminophen-hydrocodone 325 mg-5 mg oral tablet 1 tab, Route: PO, Drug Form: TAB, Dosing Weight 100, kg, ONCE, STAT, Start date: 09/18/17 12:26:00 CDT, Stop date: 09/18/17 12:26:00 CDT Notes: (Same as: [place] 325/5) Do not exceed 4gm/day of acetaminophen. Start Date: 09/18/17 Stop Date: 09/18/17 Status: Completed ketOROLAC 30 mg, Route: IVP, ONCE, Dosing Weight 100, kg, Priority: STAT, Start date: 09/03 10/21 9:29:00 CDT, Stop date: 09/18/17 9:29:00 CDT Start Date: 09/18/17 Stop Date: 09/18/17 Status: Completed promethazine 25 mg, Route: IVPB, ONCE, Dosing Weight 100, kg, Priority: STAT, Start date: 9:29:00 CDT, Stop date: 09/18/17 9:29:00 CDT Start Date: 09/18/17 Stop Date: 09/18/17 Status: Completed Saline Flush 0.9% 10 mL, Route: IVP, Drug Form: INJ, Dosing Weight 100, kg, PRN, PRN Line Flush, S tart date: 09/18/17 9:29:00 CDT, Duration: 30 day, Stop date: 10/18/17 9:28:00 C DT Notes: (Same as: BD Posiflush) Start Date: 09/18/17 Stop Date: 09/18/17 Status: Discontinued Sodium Chloride 0.9% (Bolus) IV 1,000 mL, Infuse Over: 1 hr, Route: IV, ONCE, Priority: STAT, Dosing Weight 100 kg, Start date: 09/18/17 9:29:00 CDT, Stop date: 09/18/17 9:29:00 CDT Start Date: 09/18/17 Stop Date: 09/18/17 Status: Completed tramadol 50 mg oral tablet 50 mg = 1 tab, PO, Q6H, PRN Pain, X 3 day, # 12 tab, 0 Refill(s) Start Date: 09/18/17 Stop Date: 09/21/17 Status: Ordered Results ELECTROLYTES Most recent to 1 oldest [Reference Range]: Sodium Lvl [135-145 144 mEq/L mEq/L] (09/18/17 9:34 AM) Potassium Lvl 3.8 mEq/L [3.5-5.1 mEq/L] (09/18/17 9:34 AM) Chloride Lvl [95-109 108 mEq/L mEq/L] (09/18/17 9:34 AM) CO2 [24-32 mEq/L] 27 mEq/L (09/18/17 9:34 AM) AGAP [10.0-20.0 12.8 mEq/L mEq/L] (09/18/17 9:34 AM) CHEM PANEL Most recent to 1 oldest [Reference Range]: Creatinine Lvl 0.57 mg/dL [0.50-1.40 mg/dL] (09/18/17 9:34 AM) eGFR 115 mL/min/1.73m2 1 *NA* (09/18/17 9:34 AM) BUN [7-22 mg/dL] 11 mg/dL (09/18/17 9:34 AM) B/C Ratio [6-25] 19 (09/18/17 9:34 AM) Glucose Lvl [70-99 109 mg/dL mg/dL] *HI* (09/18/17 9:34 AM) Total Protein 6.9 g/dL [6.4-8.4 g/dL] (09/18/17 9:34 AM) Albumin Lvl [3.5-5.0 3.2 g/dL g/dL] *LOW* (09/18/17 9:34 AM) Globulin [2.7-4.2 3.7 g/dL g/dL] (09/18/17 9:34 AM) A/G Ratio [0.7-1.6] 0.9 (09/18/17 9:34 AM) Calcium Lvl 8.9 mg/dL [8.5-10.5 mg/dL] (09/18/17 9:34 AM) ALT [0-65 unit/L] 49 unit/L (09/18/17 9:34 AM) AST [0-37 unit/L] 32 unit/L (09/18/17 9:34 AM) Alk Phos [39-136 80 unit/L unit/L] (09/18/17 9:34 AM) Bili Total [0.2-1.3 0.4 mg/dL mg/dL] (09/18/17 9:34 AM) Lipase Lvl [73-393 101 unit/L unit/L] (09/18/17 9:34 AM) 1Result Comment: The eGFR is calculated using [...] [Reference Range]: S Preg [Negative] Negative *NA* (09/18/17 9:34 AM) URINE AND STOOL Most recent to 1 oldest [Reference Range]: UA Turbidity [Clear] Clear (09/18/17 9:34 AM) UA Color [Yellow] Yellow *NA* (09/18/17 9:34 AM) UA pH [5.0-8.0] 5.0 (09/18/17 9:34 AM) UA Spec Grav 1.021 [<=1.030] (09/18/17 9:34 AM) UA Glucose [Negative Negative mg/dL mg/dL] *NA* (09/18/17 9:34 AM) UA Blood [Negative] Large *ABN* (09/18/17 9:34 AM) UA Ketones [Negative Negative mg/dL mg/dL] *NA* (09/18/17 9:34 AM) UA Protein [Negative Negative mg/dL mg/dL] (09/18/17 9:34 AM) UA Urobilinogen <=1.0 mg/dL [0.1-1.0 mg/dL] *NA* (09/18/17 9:34 AM) UA Bili [Negative] Negative *NA* (09/18/17 9:34 AM) UA Leuk Est Negative [Negative] (09/18/17 9:34 AM) UA Nitrite Negative [Negative] (09/18/17 9:34 AM) UA WBC [0-5 /HPF] 3 /HPF (09/18/17 9:34 AM) UA RBC [0-2 /HPF] 72 /HPF *HI* (09/18/17 9:34 AM) UA Sq Epi [Few /LPF] Occasional /LPF *NA* (09/18/17 9:34 AM) UA Mucus [None Seen Few /LPF /LPF] *NA* (09/18/17 9:34 AM) HEMATOLOGY Most recent to 1 oldest [Reference Range]: WBC [3.7-10.4 K/CMM] 6.9 K/CMM (09/18/17 9:34 AM) RBC [4.20-5.40 4.45 M/CMM M/CMM] (09/18/17 9:34 AM) Hgb [12.0-16.0 g/dL] 10.9 g/dL *LOW* (09/18/17 9:34 AM) Hct [36.0-48.0 %] 34.5 % *LOW* (09/18/17 9:34 AM) MCV [80.0-98.0 fL] 77.5 fL *LOW* (09/18/17 9:34 AM) MCH [27.0-31.0 pg] 24.5 pg *LOW* (09/18/17 9:34 AM) MCHC [32.0-36.0 31.7 g/dL g/dL] *LOW* (09/18/17 9:34 AM) RDW [11.5-14.5 %] 15.7 % *HI* (09/18/17 9:34 AM) MPV [7.4-10.4 fL] 9.7 fL (09/18/17 9:34 AM) Platelet [133-450 234 K/CMM K/CMM] (09/18/17 9:34 AM) Segs [45.0-75.0 %] 56.4 % (09/18/17 9:34 AM) Lymphocytes 31.1 % [20.0-40.0 %] (09/18/17 9:34 AM) Monocytes [2.0-12.0 6.5 % %] (09/18/17 9:34 AM) Eosinophils [0.0-4.0 4.6 % %] *HI* (09/18/17 9:34 AM) Basophils [0.0-1.0 1.4 % %] *HI* (09/18/17 9:34 AM) Segs-Bands # 3.9 K/CMM [1.5-8.1 K/CMM] (09/18/17 9:34 AM) Lymphocytes # 2.1 K/CMM [1.0-5.5 K/CMM] (09/18/17 9:34 AM) Monocytes # [0.0-0.8 0.4 K/CMM K/CMM] (09/18/17 9:34 AM) Eosinophils # 0.3 K/CMM [0.0-0.5 K/CMM] (09/18/17 9:34 AM) Basophils # [0.0-0.2 0.1 K/CMM K/CMM] (09/18/17 9:34 AM) Microcyte [None 1+ Seen] *ABN* (09/18/17 9:34 AM) Immunizations No data available for this section Procedures No data available for this section Social History Social History Type Response Smoking Status Never smoker; Exposure to T obacco Smoke None; Cigarette Smoking Last 365 Days No; Reg Smoking Cessation Counseli ng No entered on: 09/18/17 Assessment and Plan No data available for this section
--- OUTSIDE RECORDS SUMMARY | 2019-10-01 09:44 | XMS REPORT ---
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 mitotic figures. No loss of nuclear polarity , high-grade dysplasia or carcinoma is identified. Specimen #3 consists of a few fragments of colonic mucosa, two of which contain mostly tubular glandu lar structures and a few villous-like structures containing adenomatous-type g lands with mild to moderate epithelial stratification and scattered mitotic fi gures. No high-grade dysplasia or malignancy is identified. Another portion of colon is present which contains focal hyperplastic changes. No high-grade dysplasia or malignancy is identified. sherif/amor 11/10/18 Signed ___ Candi Deluca 11/10/18 1807 ------- ----- END OF REPORT STOMACH,XUNKBS0771-09-85 16:52:00 RUN DATE: 11/10/18 [facility] PAGE 1 RUN TIME: 630 Specimen Inqui ry RUN USER: INTERFACE PATIENT: ERNESTINA PERRY ACCT #: F [id number] LOC: RejiCAL U #: [id number] AGE/SX: 43/F ROOM: [facility] RE11/05/18JORGE DR: Doug Pak MD, DOB: [birth year] BED: A DIS: 11/07/18 STATUS: DIS IN TLOC: SPEC #: [id number] RECD: 11/05/18 STATUS: JACOB RERupert #: [id number] ELADIA: 11/05/18- SUBM DR: Doug Pak ENTERED: 11/05/18 SP TYPE: STOMBX OTHR DR: Dio Saldivar MD ORDERED: LEVEL IV CODES: [id number] - STOMACH, NOS COPIES TO: Dio Mendoza MD [address] [place] [address] [phone] Doug Pak MD [address] [facility] [address] [place] [address] [phone] PROCEDURES: LEVEL IV (Incomplete) TISSUES: STOMACH, NOS - ANTRUM BIOPSY CLINICAL HISTORY 43 year old, epigastric pain (wpd) F INAL DIAGNOSIS Stomach, antrum, biopsies: - active chronic gastritis, moderate - positive for Helicobacter-like organisms on Giemsa stain Tissue code 1 CPT code(s): 26956, 59567 cds/wpd 11/07/18 GROSS DESCRIPTION ANATOMIC SOURCE OF TISSUE (per Requisition): Antrum The specimen is received in a formalin-filled container, labeled with the patient's name and designated "antrum". The specimen consists of two kurtz soft tissues, 0.3 and 0.5 cm, submitted in toto as A1. keyur/wpd 11/06/18 @ 1426 CONTINUED ON NEXT PAGE RUN DATE: 11/10/18 [facility] PAGE 2 RUN TIME: 630 Specimen Inquiry RUN USER: INTERFACE SPEC #: [id number] PATIENT: ERNESTINA PERRY #[id number] (Continued) MICROSCOPIC DESCRIPTION Gastric antral biopsies show acute and chronic inflammation in the lamina propria. No ulceration is p resent. Giemsa stain is positive for Helicobacter-like organisms with an appr opriately stained control. khoa/wpcece 11/07/18 Signed Jean Correa 11/07/18 1652 END OF RE PORT - CT ABD PELVIS W/UWHX7288-08-88 15:34:00 Patient Name: ERNESTINA PERRY Unit No: [id number] EXAMS: CPT CODE: [id number] CT ABD PELVIS W/CONT 43254 Exam: CT scan of the abdomen and pelvis. Exam date:November 03, 2018. Comparison:January 28, 2018. Clinical history:PELVIC PAIN. One or more of the following dose techniques were utilized; automated exposure control, adjustment of the mA and/or kV according to patient size, and/or utilization of iterative reconstruction technique. DLP: 1865.03 mGy-cm. Pre, post and delayed imaging was also performed for evaluation of a left adrenal mass. Reformatted images were also submitted. The visualized portions of the heart and lungs are unremarkable. Attenuation of the liver is decreased compatible with hepatic steatosis. No hepatic lesions are identified. The gallbladder is surgically absent. The spleen is wi thin normal limits. The pancreas and biliary ductal system demonstrate no abnor malities. The right adrenal gland is unremarkable. Previously noted mass in th e left adrenal gland is again identified and stable in size (2.0 cm). Imaging and calculation of washout demonstrates this to be consistent with adenoma. Th e kidneys are unremarkable with no evidence of hydronephrosis or mass. The gre at vessels are unremarkable. The bowel is within normal limits. The uterus is surgically absent. In the right adnexa there is a 3.6 low density area most com patible with an ovarian cyst. In the left ovary there is a 1.3 cm area consist ent with an involuting hemorrhagic corpus luteum cyst. (See ultrasound perform ed same date). No free fluid is identified. No abnormalities are noted in the right upper quadrant and left lower quadrant in the area of the patient's pain. There is a small fat-containing hernia in the left inguinal region just below the area the patient during noted her pain with skin BB. Visualized osseous st ructures demonstrated no significant abnormality. The [facility] NAME: ERNESTINA PERRY Radiology Department PHYS: Doug Wise MD [address] : 1975 AGE: 43 SEX: F [place], [place] [address] LOC: F.2660 A PHONE #: [phone] EXAM D ATE: 11/03/2018 STATUS: ADM IN FAX #: [phone] RAD NO: Page 1 Signed Report 1 Patient Name: ERNESTINA PERRY Unit No: [id number] EX AMS: CPT CODE: [id number] CT ABD PELVIS W/CONT 04924 <Continued> IMPRESSION: 1. Hepatic steatosis. 2. Left adrenal adenoma. 3. Post cholecystectomy and hysterectomy. 4. Small fat-containing inguinal hernia on the left. 5. Right ovarian cyst and involuting left ovarian cyst. at 1534 Reported and signed by: Lizy Perea MD CC: Technologist: Charli Chanel, RT, CT CTDI: 16.26 DLP: 1865.03 Trnscrbd D/ (1534) [facility] The [facility] NAME: ERNESTINA PERRY Radio logy Department PHYS: Doug Wise MD [address] : 1975 AGE: 43 SEX: F [place] [address] LOC: Villa0 A PHONE #: [phone] EXAM DATE: 11/03/2018 STATUS: ADM IN FAX #: [phone] RAD NO: Page 2 Signed Report 1 Patient Name: ERNESTINA PERRY Unit No: [id number] EXAMS: CPT COD E: [id number] CT ABD PELVIS W/CONT 78249 <Continued> Orig Print D/T: S: 11/03/2018 (1537) [facility] NAME: ERNESTINA PERRY Radiology Department PHYS: Doug Wise MD [address] : 1975 AGE: 43 SEX: F [place], [place] [address] LOC: F.2660 A PHONE #: [phone] EXAM DATE: 11/03/2018 STATUS: ADM IN FAX #: [phone] RAD NO: Page 3 Signed Report 1 - US TRANSVAGINAL W/QXWVDK0866-42-13 14:44:00 Patient Name: ERNESTINA PERRY Unit No: [id number] EXAMS: CPT CODE: [id number] US TRANSVAGINAL W/PELVIS 76274 CLINICAL HISTORY: Left lower quadrant pain. COMPARISON: January 28, 2018. Real-time ultrasound examination of the pelvis was performed using transabdominal and endovaginal approach. The uterus has been surgically removed. The right ovary measures 40 x 37 x 35 mm and contains a hemorrhagic corpus luteum. The left ovary measures 28 x 19 x 19 mm and contains a simple cyst measuring 17 x 14 x 15 mm. Blood flow is identified in both ovaries. No extraovarian adnexal mass is noted. There is no significant free fluid in the pelvis. IMPRESSION: 1. Status post hysterectomy. 2. Hemorrhagic corpus luteum in the right ovary and simple follicle in the left ovary. at 1444 Reported and signed by: Adams Jacques MD CC: Technologist: Christopher Garcia RDMS, RVT Probe: [id number] Trnscrbd D/ (1899) Cj Orig Print D/T: S: 11/03/2018 (1815) The [facility] N CHENG: ERNESTINA PERRY Radiology Department PHYS: Doug Wise MD [address] : 1974 AGE: 43 SEX: F [place], [place] [address] LOC: F.2660 A PHONE #: [phone] EXAM DATE: 11/03/2018 STATUS: ADM IN FAX #: [phone] RAD NO: Page 1 Signed Report Patient Name: ERNESTINA ROSE Unit No: [id number] EXAMS: CPT CODE: [id number] US TRANSVAGINAL W/[place] [address] <Continued> The [facility] NAME: ERNESTINA PERRY Radiology Department PHYS: Doug Wise MD [address] : 1975 AGE: 43 SEX: F [place], [place] [address] LOC: F.2660 A PHONE #: [phone] EXAM DATE: 11/03/2018 STATUS: ADM IN FAX #: [phone] RAD NO: Page 2 Signed Report - US PELVIS IOVUMPQR6266-14-80 14:44:00 Patient Name: ERNESTINA PERRY Unit No: [id number] EXAMS: CPT CODE: [id number] US PELVIS COMPLETE 74361 CLINICAL HISTORY: Left lower quadrant pain. COMPARISON: January 28, 2018. Real-time ultrasound examination of the pelvis was performed using transabdominal and endovaginal approach. The uterus has been surgically removed. The right ovary measures 40 x 37 x 35 mm and contains a hemorrhagic corpus luteum. The left ovary measures 28 x 19 x 19 mm and contains a simple cyst measuring 17 x 14 x 15 mm. Blood flow is identified in both ovaries. No extraovarian adnexal mass is noted. There is no significant free fluid in the pelvis. IMPRESSION: 1. Status post hysterectomy. 2. Hemorrhagic corpus luteum in the right ovary and simple follicle in the left ovary. at 1444 Reported and signed by: Adams Jacques MD CC: Technologist: Christopher Garcia RDMS, T Probe: Trnscrbd D/ (0724) t.MIR.YOS Orig Print D/T: S: 11/03/2018 (9947) The [facility] NAME: VICKYERNESTINA Radiology Department PHYS: Doug Wise MD [address] : 1975 AGE: 43 SEX: F [place], [place] [address] LOC: F.2660 A PHONE #: [phone] EXAM DATE: 11/03/2018 STATUS: ADM IN FAX #: [phone] RAD NO: Page 1 Signed Report Patient Name: ERNESTINA PERRY Unit No: [id number] EXAMS: CPT CODE: [id number] US PELVIS COMPLETE 77479 < Continued> The [facility] NAME: ERNESTINA PERRY Radiology Department PHYS: Doug Wise MD [address] : 1975 AGE: 43 SEX: F [place] [address] LOC: Adri Rodríguez PHONE #: [phone] EXAM DATE: 11/03/2018 STATUS: ADM IN FAX #: [phone] RAD NO: Page 2 Signed Report COMPREHENSIVE METABOLIC QKYNS3177-09-95 13:55:00* Test Item Value Reference Range Interpretation Comments SODIUM (test code = NA) 138 mEq/L 135-145 N POTASSIUM (test code = K) 4.4 mEq/L 3.5-5.0 N CHLORIDE (test code = CL) 105 mEq/L 100-115 N CARBON DIOXIDE (test code = CO2) 25 mEq/L 22-31 N ANION GAP (test code = GAP) 12.60 10-20 N GLUCOSE (test code = GLU) 92 mg/dL 65-110 N BLOOD UREA NITROGEN (test code = BUN) 10 mg/dL 7-18 N GLOMERULAR FILTRATION RATE (test code = GFR) 174 ml/min >60 N CREATININE (test code = CREAT) 0.4 mg/dL 0.5-1.0 L TOTAL PROTEIN (test code = PROT) 6.9 gm/dL 6.3-8.2 N ALBUMIN (test code = ALB) 3.5 gm/dL 3.4-4.8 N CALCIUM (test code = CA) 9.0 mg/dL 8.4-10.2 N BILIRUBIN TOTAL (test code = BILT) 1.0 mg/dL 0.2-1.0 N SGOT/AST (test code = AST) 90 units/L 15-37 H SGPT/ALT (test code = ALT) 142 units/L 12-78 H ALKALINE PHOSPHATASE TOTAL (test code = ALKP) 85 units/L 46-116 N IEJZFSI2865-88-29 13:55:00* Test Item Value Reference Range Interpretation Comments AMYLASE (test code = JAVID) 37 units/L 30-110 N ZHPKXX9698-51-47 13:55:00* Test Item Value Reference Range Interpretation Comments LIPASE (test code = LIP) 110 units/L 73-393 N URINALYSIS KSLIETLF6047-15-38 13:25:00* Test Item Value Reference Range Interpretation Comments UA COLOR (test code = COLU) YELLOW YELLOW UA APPEARANCE (test code = APPU) Slightly-Cloudy CLEAR UA GLUCOSE DIPSTICK (test code = DGLUU) NEGATIVE NEG UA BILIRUBIN DIPSTICK (test code = BILU) NEGATIVE NEG UA KETONE DIPSTICK (test code = KETU) NEGATIVE NEG UA SPECIFIC GRAVITY (test code = SGU) 1.025 1.001-1.035 N UA BLOOD DIPSTICK (test code = SRUTHI) NEG NEG UA PH DIPSTICK (test code = SHASTA) 5.0 5-9 UA PROTEIN DIPSTICK (test code = PROU) NEGATIVE NEG UA UROBILINIOGEN DIPSTICK (test code = URO) NEGATIVE mg/dL NEG UA NITRITE DIPSTICK (test code = DEREK) NEG NEG UA LEUKOCYTE ESTERASE DIPSTICK (test code = LEUU) NEG NEG UA WBC (test code = WBCU) 3-5 #/hpf NONE SEEN A UA RBC (test code = RBCU) 0-2 #/hpf NONE SEEN UA EPITHELIAL CELLS (test code = EPIU) RARE #/HPF RARE-FEW UA BACTERIA (test code = BACU) RARE /HPF RARE-FEW UA CALCIUM OXALATE CRYSTALS (test code = CAOXU) 6-10 #/LPF UA MUCUS (test code = MUCU) 1+ NONE SEEN URINE SAMPLE: CLEAN CATCHCBC W/AUTO [id number] 13:18:00* Test Item Value Reference Range Interpretation Comments WHITE BLOOD CELL (test code = WBC) 8.5 K/mm3 6.6-12.1 N RED BLOOD CELL (test code = RBC) 4.42 M/mm3 3.45-5.01 N HEMOGLOBIN (test code = HGB) 13.7 g/dL 10.7-13.9 N HEMATOCRIT (test code = HCT) 41.3 % 32.1-42.1 N MEAN CELL VOLUME (test code = MCV) 93 fL 84.1-94.8 N MEAN CELL HGB (test code = MCH) 31.0 pg 27-35 N MEAN CELL HGB CONCETRATION (test code = MCHC) 33.2 gm/dL 32.2-34. 1 N RED CELL DISTRIBUTION WIDTH (test code = RDW) 13.3 % 12.4-16. 5 N PLATELET COUNT (test code = PLT) 221 K/mm3 133-385 N IMMATURE PLATELET FRACTION (test code = IPF) 0.0 % 0.0-10.8 N MEAN PLATELET VOLUME (test code = MPV) 12.0 fl 9.1-12.7 N NEUTROPHIL % (test code = NT%) 52.2 % 56.5-79.4 L LYMPHOCYTE % (test code = LY%) 38.3 % 14.3-34.3 H MONOCYTE % (test code = MO%) 6.0 % 5.1-10.4 N EOSINOPHIL % (test code = EO%) 2.7 % 0.1-3.0 N BASOPHIL % (test code = BA%) 0.7 % 0.1-1.0 N NEUTROPHIL # (test code = NT#) 4.4 K/mm3 LYMPHOCYTE # (test code = LY#) 3.2 K/mm3 MONOCYTE # (test code = MO#) 0.5 K/mm3 EOSINOPHIL # (test code = EO#) 0.23 K/mm3 BASOPHIL # (test code = BA#) 0.1 K/mm3 RBC MORPHOLOGY REQUIRED (test code = RBCM) NORMAL NORMAL PLATELET MORPHOLOGY REQUIRED (test code = PLTMR) NORMAL MERRITT L CHEM OSXWA9886-02-27 22:51:0028MH [facility] YQECU9990-63-60 22:51:003.5 [facility] AIPWV8528-48-98 22:51:0069 [facility] CCJCS3662-79-07 22:51:73470OH [facility] EMNCF6571-24-80 22:51:0096 [facility] PANEL 2017-10-26 22:51:000.6MH [facility] CTUSE1265-96-59 22:51:0096MH [facility] MKGQT6647-49-25 22:51:009MH [facility] AUZBM0116-20-64 22:51:003.6MH [facility] IQYFY5638-47-18 22:51:000.70MH [facility] BHFUD4388-75-40 22:51:48232ES [facility] VRXGU0069-32-57 22:51:25243ME [facility] PANEL 2017-10-26 22:51:007.6MH [facility] ZJBMT9650-88-17 22:51:0025MH [facility] ZOTGC1957-16-96 22:51:009.5MH [facility] HQRQS3502-52-89 [facility]004.1[facility] IUZCW2791-96-70 22:51:00* Test Item Value Reference Range Interpretation Comments A/G Ratio (test code = A/G Ratio) 0.9 1 0.7-1.6 [facility] PLEPX5860-87-53 22:51:0012.6M[facility] HospitalCHEM DINFU9575-85-89 22:51:00* Test Item Value Reference Range Interpretation Comments B/C Ratio (test code = B/C Ratio) 13 1 -25 HzvpbycxjEJBDMJMKWMKLD5381-08-71 22:51:00Negative *NA*(10/26/17 5:51 PM) SbeazogvhANDEEZUZOF4161-25-33 22:51:000.7 YqbfrwuaoCVNKOLKWXZ2291-68-70 22:51:002.0 MhrjzjypjPHBDINHDVR8011-68-78 22:51:008.[facility]HEMATOLOGY 2017-10-26 22:51:000.6M KzmezfuayRYDPPBIHGH1650-82-27 22:51:006.2M[facility] LSZDICCDVX3310-62-62 22:51:001.0 KzhereabsXWUQOGHJTD9404-33-90 22:51:000.1M BihhuzipuSOXTEHQHEF2392-12-56 22:51:000.1M JoaktcwhpEZODPRHGHR7086-04-27 22:51:0018.[facility] MnkjgiiokDZDJRFJJXE4282-81-78 22:51:0074.[facility]HEMATOLOGY 2017-10-26 22:51:009.4 RolysombgFISHLUHKGA1888-68-89 22:51:49390[facility] RAVMKNXXUM2570-58-13 22:51:0032.5 EsjivifzkKPFCNQODLM0305-02-99 22:51:0081.6M EmaezaovdWAVUUUPFSI6519-17-00 22:51:0041.1M HnfosdlrwGCHZAEZCYK8146-12-53 22:51:00* Test Item Value Reference Range Interpretation Comments MCH (test code = MCH) 26.5 pg 27.0-31.0 BwxryhowyAHVSUZEPCX5837-12-06 22:51:0021.4 BxvyajihaDEIWYEXAHV1160-68-70 22:51:005.04 TpoogzsaqAFRXEEUUCN4747-85-93 22:51:0011.1M [facility] 2017-10-26 22:51:0013.4 [facility] XBLAC5525-00-88 22:51:00Clear (10/26/17 5:51 PM)MH [facility] KNQJM1210-64-18 22:51:00Yellow *NA*(10/26/17 5:51 PM)[facility] JFJKK1207-32-63 22:51:00* Test Item Value Reference Range Interpretation Comments UA pH (test code = UA pH) 5.0 1 5.0-8.0 [facility] AND DRQUI5912-95-15 22:51:00* Test Item Value Reference Range Interpretation Comments UA Spec Grav (test code = UA Spec Grav) 1.017 1 [facility] UPLEM8696-63-02 22:51:00Negative *NA*(10/26/17 5:51 PM)[facility] NUQJB8296-35-35 22:51:00Large *ABN*(10/26/17 5:51 PM)[facility] XYDWT9481-81-05 22:51:00>182 [facility] STOOL 2017-10-26 22:51:00Negative (10/26/17 5:51 PM) [facility] STOOL 2017-10-26 22:51:001MH [facility] AND PIMKX4984-37-23 22:51:00Negative (10/26/17 5:51 PM) [facility] BCBCA9907-98-84 14:34:64805OS [facility] XZBTX6138-59-40 14:34:48484UL [facility] ZPGYK6520-48-80 14:34:0080 [facility] KDWZH2120-97-99 14:34:000.4 [facility] ZEGZO8521-73-72 14:34:0032 [facility] UYZIL1006-51-99 14:34:0049 [facility] PANEL 2017-09-18 14:34:006.9 [facility] RVLAB3858-90-75 14:34:003.2M [facility] TWJWB8796-58-90 14:34:75804HG [facility] OOEMK2083-43-92 14:34:003.8 [facility] WOAVG2602-46-23 14:34:008.9MH [facility] UNJWR5882-46-09 14:34:0027[facility] Center[facility] MCDNI4477-30-36 14:34:59146VE [facility] PANEL 2017-09-18 14:34:21495EC [facility] GZNEG7189-34-56 14:34:000.57 [facility] HJTTE8038-08-55 14:34:0011[facility] Center[facility] GFXOO9346-74-19 14:34:00* Test Item Value Reference Range Interpretation Comments A/G Ratio (test code = A/G Ratio) 0.9 1 0.7-1.6 [facility] AFOJO0061-46-41 14:34:003.7[facility] Center[facility] NRUXN0088-64-73 14:34:0012.8[facility] Center[facility] XTQWH1850-64-93 14:34:00* Test Item Value Reference Range Interpretation Comments B/C Ratio (test code = B/C Ratio) 19 1 6-25 [facility] CenterYwgkihwrkCQIVZUTUXVOOM1734-59-32 14:34:00Negative *NA*(09/18/17 9:34 AM) UsnmqgbinLNDONVAXCZ9034-31-97 14:34:0077.5 UdtpiwufaBVRRTJEUUG1046-82-52 14:34:00* Test Item Value Reference Range Interpretation Comments MCH (test code = MCH) 24.5 pg 27.0-31.0 LfjzjtejiRKYFDMFBHT8963-42-00 14:34:0010.9 YhxmuzenuGQNBEXVMUQ4991-41-89 14:34:0034.5 KqdhxrfdfQALDCKHPMA8797-89-15 14:34:004.45 [facility] 2017-09-18 14:34:006.9 IkpubynkwIUPDRCQOGK8016-82-18 14:34:79113AG[facility] Center OEZQJVTHQC0499-19-30 14:34:009.7 TbvgqlltkPHLHOHSRXS7680-06-45 14:34:0031.7 GnqhkwlpeJUUCYRHSWY0518-30-78 14:34:0015.7 ZkbgudvpjWVBTKYSXJQ9762-30-11 14:34:0031.[facility] KswkichjvDEEPOECWCG5697-47-17 14:34:006.5 [facility] 2017-09-18 14:34:003.9 LovmdtpopHJBRQPZWIX7873-43-41 14:34:001.4[facility] AORDBFAHOU7899-14-04 14:34:0056.4[facility] HospitalTofwejwptXKTGIQEAYC7150-79-66 14:34:004.6MH YafavcaudQONPDQXVBB3177-82-24 14:34:001+ *ABN*(09/18/17 9:34 AM)[facility] TDWJOMHCMQ1366-16-24 14:34:000.4[facility] HospitalEaubwawfjJVURXVEUMC3190-58-00 14:34:002.1M[facility] HospitalHnmgztwbuQSWWADLGYQ0303-72-58 14:34:000.1MT[facility] HospitalBnwstsfccAVMBRIMDPV6094-21-29 14:34:000.3[facility] VKVKM4520-75-07 14:34:0072 [facility] GZGOB3586-97-15 14:34:003 [facility] LUWBO5255-19-85 14:34:00Negative (09/18/17 9:34 AM) [facility] YJDRT9963-22-75 14:34:00Negative (09/18/17 9:34 AM) [facility] ZPENZ5688-66-87 14:34:00Large *ABN*(09/18/17 9:34 AM) [facility] UDMSV9975-08-89 14:34:00Negative *NA*(09/18/17 9:34 AM) [facility] HOWWK2061-60-62 14:34:00* Test Item Value Reference Range Interpretation Comments UA pH (test code = UA pH) 5.0 1 5.0-8.0 [facility] [id number] 14:34:00* Test Item Value Reference Range Interpretation Comments UA Spec Grav (test code = UA Spec Grav) 1.021 1 [facility] [id number] 14:34:00Clear (09/18/17 9:34 AM) [facility] CICWS7943-82-15 14:34:00Yellow *NA*(09/18/17 9:34 AM) [facility] HSXCG5436-80-31 03:46:004 [facility] STOOL 2017-03-19 03:46:006 [facility] SIDVO2391-16-68 03:46:00Negative (03/18/17 9:46 PM) [facility] IIMEI0224-26-51 03:46:00Yellow *NA*(03/18/17 9:46 PM) [facility] HDFTC2177-36-19 03:46:001.026 [facility] OYZWO0330-89-23 03:46:00Clear (03/18/17 9:46 PM) [facility] UTUFC8845-93-88 03:46:005.0 [facility] KPQVS3517-99-99 03:46:00Negative *NA*(03/18/17 9:46 PM) [facility] PXORM0070-69-35 03:46:00Negative (03/18/17 9:46 PM) [facility] DXQHO2202-86-27 03:46:00Small *ABN*(03/18/17 9:46 PM) [facility] RLUEF1647-12-73 03:34:00 217MH [facility] VLDSB2003-28-11 03:34:0084MH [facility] JTPQH3795-54-10 03:34:000.8MH [facility] ZNOBI6069-75-40 03:34:16519WM [facility] PANEL 2017-03-19 03:34:0010MH [facility] CPSFD0154-02-35 03:34:0096MH [facility] HJVLP0716-14-83 03:34:41375AH [facility] FEAPG7402-57-58 03:34:18566GV [facility] LFYMW3683-28-30 03:34:0023MH [facility] FCNHR3778-90-32 03:34:0024MH [facility] WWHIM3981-51-62 03:34:003.2MH [facility] PANEL 2017-03-19 03:34:009.3[facility] BIBNB0099-04-56 03:34:000.86[facility] YTHWO0524-51-34 03:34:0054MH [facility] HOCQN1652-36-63 03:34:003.1MH [facility] NZHGZ8001-77-84 03:34:007.5[facility] QESJE3821-81-49 03:34:000.7MH [facility] LTKDJ3522-33-30 03:34:0013.2[facility] PANEL 2017-03-19 03:34:0012MH [facility] JVVFH0277-51-54 03:34:004.4[facility] WEZZIZJGBDGBA7047-82-68 03:34:00Negative *NA*(03/18/17 9:34 PM)[facility] JRRTKSJZNE2239-51-71 03:34:005.9 EvnuglfrkKXOEADOLUP5855-03-82 03:34:000.5 XpjtwgypdRXBGGTTDCC1828-82-17 03:34:001.6M OswliggfsUMCYHCOITM4444-43-84 03:34:0021.4 YwpmouyaqCIFMYFIHQP6124-71-95 03:34:0069.8 [facility]MAT[facility] 2017-03-19 03:34:006.7 VmkvnzrqvMTCGDYDDFO3894-56-22 03:[facility] LVZYZECCBT4314-18-50 03:34:001.8 TsddyjhjgBZYHSWJCOQ8972-58-54 03:34:000.1M VifqmjnwmPXCQYBIONK0817-60-39 03:34:0015.6M GdmppohkyTJRMNANVTC8236-50-41 03:34:0034.1M JcwfaqsxxIBBFBFDNHA0331-60-82 03:34:00* Test Item Value Reference Range Interpretation Comments MCH (test code = MCH) 28.8 pg 27.0-31.0 GqlqxjbssCJPKYVJKPZ7057-99-49 03:34:0084.5 LpchlasftZYSWLLFAWN3034-68-48 03:34:78959BP GxteqhjfcXPIOBJFIOO3923-72-79 03:34:0038.3M [facility] 2017-03-19 03:34:0013.0 QpgbozsnmOPAVFWRGPJ5930-68-99 03:34:004.53[facility] CKUKEXZWDW7381-27-37 03:34:009.3M ZstgyxiinALZVVAWYAU1716-19-88 03:34:008.5 [facility] CKVYYLQ1590-02-17 00:04:001.2[facility] ENZYMES 2017-03-14 00:04:001.2[facility] VYNEBEJ8746-45-80 00:04:000.03 [facility] BIFQOBH1722-10-73 00:04:00720HP [facility] NCSFW9803-37-69 00:04:81389NZ [facility] PUUHX9114-43-25 00:04:0091 [facility] PANEL 2017-03-14 00:04:003.6[facility] MKWMP0748-15-32 00:04:009.4[facility] GERJM6512-11-41 00:04:0089[facility] THXBX6651-29-67 00:04:0024MH [facility] HLOXW7888-54-04 00:04:003.7[facility] QPHPZ5710-34-35 00:04:64605IV [facility] PWNVF5798-20-33 00:04:87334NH [facility] PANEL 2017-03-14 00:04:91456GV [facility] VCNDO0672-96-44 00:04:007.3[facility] VFBHG2844-94-34 00:04:0010MH [facility] BRVWH7796-50-47 00:04:0012MH [facility] OGCHL6830-16-69 00:04:003.7MH [facility] ANIVP7062-25-57 00:04:000.9[facility] USKRO9917-73-77 00:04:0010.7 [facility] PANEL 2017-03-14 00:04:001.0MH [facility] LJBKI7704-66-86 00:04:38362N[place] [facility] VAMLB4288-32-82 00:04:0057MH [facility] SNGYF7106-66-55 00:04:000.80MH GtvnqxgafAXSOPAJIBW8017-84-10 00:04:001.5MH CqkljhqegWGXTNZOSBH3258-45-25 00:04:000.1MH FttxsccozTERWNVUQWA6586-87-34 00:04:000.1MH [facility]OLOGY 2017-03-14 00:04:000.6MH JgfxyqrciDLGZJXRNJF9861-72-85 00:04:0014.6MH [facility] LPTSQJWDTD0049-51-70 00:04:0077.8MH YpguogzmxRKPULQYZWH7014-36-34 00:04:008.0MH DxdtokhyzCPYWUXLPCE0334-41-45 00:04:001.0 ZqlrqrvnnEEDYFRCNAN1215-57-57 00:04:001.0 UdsczdmcxYXNGSANSLV6493-97-88 00:04:005.6MH [facility]MATOLOG[facility] 2017-03-14 00:04:009.6MH WrmbqxzslNJXGMVPDWU0891-35-56 00:04:54811OQ [facility] NOLLCNIDVJ2033-27-05 00:04:0016.1MH UnxbaeqmoWBINIOZIFN6922-49-85 00:04:0033.4 TakjyvwegBDZLDQVPRF1864-28-87 00:04:0086.9[facility] CenterPgzyoyunmMPCZESVFHA3864-57-01 00:04:00* Test Item Value Reference Range Interpretation Comments MCH (test code = MCH) 29.0 pg 27.0-31.0 BshvtrubbFHAEQNDJUM4350-24-91 00:04:0041.1[facility] HospitalEmgfzsmtgIYYJVGEPKB5632-93-53 00:04:004.74[facility] CenterIhiedpbflMYUZFLGEJV3785-77-50 00:04:0013.7 [facility] 2017-03-14 00:04:0010.3MH [facility]UR[facility] AND TMVUA8878-08-88 00:04:00Large *ABN*(03/13/17 6:04 PM) [facility] YGGVK5408-51-68 00:04:00Negative (03/13/17 6:04 PM) [facility] QLIWF7960-27-67 00:04:00>182[facility] URINE AND ZKDSD8467-75-84 00:04:0015MH [facility] AND GXINR7227-83-88 00:04:006.0[facility] HLCZA0514-15-48 00:04:00Negative *NA*(03/13/17 6:04 PM) [facility] MHIDP1949-94-81 00:04:00Negative (03/13/17 6:04 PM) [facility] RUHUX7029-60-07 00:04:001.015 [facility] STOOL 2017-03-14 00:04:00Slight *ABN*(03/13/17 6:04 PM) [facility] STOOL 2017-03-14 00:04:00Yellow *NA*(03/13/17 6:04 PM)[facility] OZNK9073-33-21 00:04:00Negative (03/13/17 6:04 PM)[facility]
[2019-10-01 10:01] LABS: BASOPHILS # (AUTO) 0.1 (0.0-0.1); BASOPHILS % 0.7 % (0.0-1.0); EOSINOPHILS # (AUTO) 0.3 (0.0-0.4); EOSINOPHILS % 3.7 % (0.0-6.0); HEMATOCRIT 42.1 % (34.2-44.1); HEMOGLOBIN 14.2 g/dL (12.0-16.0); LYMPHOCYTES # (AUTO) 2.6 (1.0-3.2); LYMPHOCYTES % 35.9 % (18.0-39.1); MEAN CORPUSCULAR HEMOGLOBIN 29.5 pg (28-32); MEAN CORPUSCULAR HGB CONC 33.7 g/dL (31-35); MEAN CORPUSCULAR VOLUME 87.5 fL (81-99); MONOCYTES # (AUTO) 0.3 (0.2-0.8); MONOCYTES % 4.1 % (4.4-11.3); NEUTROPHILS # (AUTO) 4.1 (2.1-6.9); NEUTROPHILS % 55.5 % (38.7-80.0); PLATELET COUNT 271 x10e3/uL (140-360); RED BLOOD COUNT 4.81 x10e6/uL (3.6-5.1); RED CELL DISTRIBUTION WIDTH 13.4 % (11.7-14.4)
[2019-10-01 10:22] LABS: CLARITY,URINE SL CLOUDY (CLEAR); COLOR,URINE YELLOW (YELLOW)
[2019-10-01 10:23] LABS: BILIRUBIN,URINE NEGATIVE (NEGATIVE); KETONES,URINE NEGATIVE (NEGATIVE); LEUKOCYTE ESTERASE ,URINE NEGATIVE (NEGATIVE); NITRITE,URINE NEGATIVE (NEGATIVE); PROTEIN,URINE DIPSTICK NEGATIVE (NEGATIVE); URINE UROBILINOGEN 0.2 mg/dL (0.2 - 1)
[2019-10-01 10:25] LABS: ALANINE AMINOTRANSFERASE 37 IU/L (0-55); ALBUMIN 3.8 g/dL (3.5-5.0); ALBUMIN/GLOBULIN RATIO 1.1 (0.8-2.0); ALKALINE PHOSPHATASE 79 IU/L (40-150); ANION GAP 13.5 mmol/L (8-16); BLOOD UREA NITROGEN 12 mg/dL (7-26); BUN/CREATININE RATIO 13 (6-25); CALCIUM 9.8 mg/dL (8.4-10.2); CARBON DIOXIDE 23 mmol/L (22-29); CHLORIDE 106 mmol/L (98-107); EST GLOMERULAR FILTRATION RATE > 60 ML/MIN (60-); GLUCOSE 115 mg/dL (74-118); POTASSIUM 3.5 mmol/L (3.5-5.1); SODIUM 139 mmol/L (136-145)
[2019-10-01 10:28] LABS: INR 0.83; PROTHROMBIN TIME 11.9 seconds (11.9-14.5)
[2019-10-01 10:30] LABS: PARTIAL THROMBOPLASTIN TIME 29.7 seconds (23.8-35.5)
[2019-10-01 10:38] LABS: BACTERIA,URINE FEW /HPF; EPITHELIAL CELLS,URINE RARE /LPF; RBC,URINE >50 /HPF (0-5)
[2019-10-01] MEDS ORDERED: CEFTRIAXONE SOD 1 GM/NS 50 ML 50 ML IV ONE (11:00)
--- NOTE | 2019-10-01 11:15 | Diagnostic Imaging Report ---
EXAM: CT Abdomen and Pelvis WITHOUT intravenous contrast INDICATION: Flank pain, hematuria COMPARISON: None. TECHNIQUE: Abdomen and pelvis were scanned utilizing a multidetector helical scanner from the lung base to the pubic symphysis without administration of IV contrast. Coronal and sagittal reformations were obtained. IV CONTRAST: None ORAL CONTRAST: None COMPLICATIONS: None RADIATION DOSE: Total DLP: 703 mGy*cm Dose modulation, iterative reconstruction, and/or weight based adjustment of the mA/kV was utilized to reduce the radiation dose to as low as reasonably achievable. FINDINGS: LOWER THORAX: Normal. HEPATOBILIARY: No focal liver lesion. Status post cholecystectomy. SPLEEN: No splenomegaly. PANCREAS: No focal masses or ductal dilatation. ADRENALS: Low-density 1.7 cm left adrenal nodule is consistent with a benign adenoma. No further follow-up imaging is necessary. No right adrenal nodule. KIDNEYS/URETERS: 7 mm obstructive calculus at the left ureterovesical junction with severe associated left hydroureteronephrosis. 3.3 mm calcific density in the facility of the right ureterovesical junction may also represent an obstructive ureteral calculus. Moderate right hydroureteronephrosis. Additional punctate 2 to 3 mm renal calculi in the upper pole and lower pole of the right kidney. PELVIC ORGANS/BLADDER: Status post hysterectomy. PERITONEUM / RETROPERITONEUM: No free air or fluid. LYMPH NODES: No lymphadenopathy. VESSELS: Unremarkable. GI TRACT: No abnormal bowel thickening. No bowel obstruction. Normal appendix. BONES AND SOFT TISSUES: No acute osseous injury. No suspicious lytic or blastic lesions. IMPRESSION: 7 mm obstructive left ureterovesical junction calculus with severe left hydroureteronephrosis. Possible 3.3 mm calculus at the right ureterovesical junction with moderate right hydroureteronephrosis. Additional punctate right renal calculi. Signed by: Jen Romeo MD on 10/01/2019 11:12 AM
[2019-10-01] MEDS ORDERED: MORPHINE SULFATE 2 MG/ML SYR 1ML IV PRN (11:45)
--- NOTE | 2019-10-01 11:55 | Emergency Department Note ---
History of Present Illnes History of Present Illness Chief Complaint: Genitourinary History of Present Illness This is a 44 year old female c/o hematuria x 2 days with pain to bilateral flanks and back and suprapubic area md in room during triage states hx of kidney stones. Historian: Patient Arrival Mode: Car Mine Wedge Sawyer Required: No Onset (how long ago): day(s) (2) Location: LEFT FLANK Quality: PAIN Radiation: back Severity: severe Onset quality: sudden Timing of current episode: intermittent Progression: worsening Chronicity: new Context: recent illness Relieving factors: none Exacerbating factors: none Associated symptoms: denies other symptoms Past Medical/Family History Physician Review I have reviewed the patient's past medical and family history. Any updates have been documented here. Past Medical History Recent Fever: No Clinical Suspicion of Infectio: No New/Unexplained Change in Ment: No Past Medical History: Kidney Stones Past Surgical History: Cholecysctectomy, Hysterectomy Social History Smoking Cessation: Never Smoker Counseling Performed: Yes Alcohol Use: Social Any Illegal Drug Use: No TB Exposure/Symptoms: No Physically hurt or threatened: No Other Last Tetanus: utd Any Pre-Existing Lines (PICC,: No Is patient up to date on immun: Yes Last Flu: none Last Pneumovax: none Review of Systems Review of Systems Constitutional: no symptoms EENTM: no symptoms Cardiovascular: no symptoms Respiratory: no symptoms Gastrointestinal: no symptoms Genitourinary: frequency, hematuria Musculoskeletal: no symptoms, back pain (LEFT FLANK) Neurological: no symptoms Psychological: no symptoms Endocrine: no symptoms Hematological/Lymphatic: no symptoms Review of other systems All other systems reviewed and negative. Physical Exam Related Data Allergies: Coded Allergies: No Known Allergies (Unverified , 10/01/19) Triage Vital Signs Vital Signs Date Time Temp Pulse Resp B/P (MAP) Pulse Ox O2 Delivery O2 Flow Rate FiO2 10/01/19 09:45 97.2 72 20 187/99 98 Physical Exam CONSTITUTIONAL Constitutional: well-developed, well-nourished HENT HENT: normocephalic, atraumatic, oropharynx clear/moist, nose normal HENT L/R: left ext ear normal, right ext ear normal EYES Eyes: PERRL, conjunctivae normal NECK Neck: ROM normal PULMONARY Pulmonary: effort normal, breath sounds normal CARDIOVASCULAR Cardiovascular: regular rhythm, heart sounds normal, capillary refill normal, normal rate GASTROINTESTINAL Abdominal: soft, bowel sounds normal, tender (MILD SUPRAPUBIC TENDERNESS, NO R/G) GENITOURINARY Genitourinary: exam deferred SKIN Skin: warm, dry MUSCULOSKELETAL Musculoskeletal: other (LEFT FLANK TENDERNESS) NEUROLOGICAL Neurological: alert, oriented x 3, no gross motor or sensory deficits PSYCHOLOGICAL Psychological: mood/affect normal, judgement normal Results Laboratory Result Diagram: 10/01/19 0944 10/01/19 0944 Laboratory Laboratory Tests Test 10/01/19 09:44 White Blood Count 7.33 x10e3/uL (4.8-10.8) Red Blood Count 4.81 x10e6/uL (3.6-5.1) Hemoglobin 14.2 g/dL (12.0-16.0) Hematocrit 42.1 % (34.2-44.1) Mean Corpuscular Volume 87.5 fL (81-99) Mean Corpuscular Hemoglobin 29.5 pg (28-32) Mean Corpuscular Hemoglobin Concent 33.7 g/dL (31-35) Red Cell Distribution Width 13.4 % (11.7-14.4) Platelet Count 271 x10e3/uL (140-360) Neutrophils (%) (Auto) 55.5 % (38.7-80.0) Lymphocytes (%) (Auto) 35.9 % (18.0-39.1) Monocytes (%) (Auto) 4.1 % (4.4-11.3) Eosinophils (%) (Auto) 3.7 % (0.0-6.0) Basophils (%) (Auto) 0.7 % (0.0-1.0) Neutrophils # (Auto) 4.1 (2.1-6.9) Lymphocytes # (Auto) 2.6 (1.0-3.2) Monocytes # (Auto) 0.3 (0.2-0.8) Eosinophils # (Auto) 0.3 (0.0-0.4) Basophils # (Auto) 0.1 (0.0-0.1) Absolute Immature Granulocyte (auto 0.01 x10e3/uL (0-0.1) Prothrombin Time 11.9 seconds (11.9-14.5) Prothromb Time International Ratio 0.83 Activated Partial Thromboplast Time 29.7 seconds (23.8-35.5) Urine Color Yellow (YELLOW) Urine Clarity Sl cloudy (CLEAR) Urine pH 5.5 (5 - 7) Urine Specific [place] 1.025 (1.010-1.025) Urine Protein Negative (NEGATIVE) Urine Glucose (UA) Negative (NEGATIVE) Urine Ketones Negative (NEGATIVE) Urine Blood Large (NEGATIVE) Urine Nitrite Negative (NEGATIVE) Urine Bilirubin Negative (NEGATIVE) Urine Urobilinogen 0.2 mg/dL (0.2 - 1) Urine Leukocyte Esterase Negative (NEGATIVE) Urine RBC >50 /HPF (0-5) Urine WBC 6-10 /HPF (0-5) Urine Epithelial Cells Rare /LPF (NONE) Urine Bacteria Few /HPF (NONE) Sodium Level 139 mmol/L (136-145) Potassium Level 3.5 mmol/L (3.5-5.1) Chloride Level 106 mmol/L (98-107) Carbon Dioxide Level 23 mmol/L (22-29) Anion Gap 13.5 mmol/L (8-16) Blood Urea Nitrogen 12 mg/dL (7-26) Creatinine 0.90 mg/dL (0.57-1.11) Estimat Glomerular Filtration Rate > 60 ML/MIN (60-) BUN/Creatinine Ratio 13 (6-25) Glucose Level 115 mg/dL (74-118) Calcium Level 9.8 mg/dL (8.4-10.2) Total Bilirubin 0.7 mg/dL (0.2-1.2) Aspartate Amino Transf (AST/SGOT) 22 IU/L (5-34) Alanine Aminotransferase (ALT/SGPT) 37 IU/L (0-55) Alkaline Phosphatase 79 IU/L (40-150) Total Protein 7.2 g/dL (6.5-8.1) Albumin 3.8 g/dL (3.5-5.0) Globulin 3.4 g/dL (2.3-3.5) Albumin/Globulin Ratio 1.1 (0.8-2.0) Lab results reviewed: Yes Laboratory comments UA WITH WBC'S AND RBC'S Imaging Imaging results reviewed: Yes Impressions EXAM: CT Abdomen and Pelvis WITHOUT intravenous contrast INDICATION: Flank pain, hematuria COMPARISON: None. TECHNIQUE: Abdomen and pelvis were scanned utilizing a multidetector helical scanner from the lung base to the pubic symphysis without administration of IV contrast. Coronal and sagittal reformations were obtained. IV CONTRAST: None ORAL CONTRAST: None COMPLICATIONS: None RADIATION DOSE: Total DLP: 703 mGy*cm Dose modulation, iterative reconstruction, and/or weight based adjustment of the mA/kV was utilized to reduce the radiation dose to as low as reasonably achievable. FINDINGS: LOWER THORAX: Normal. HEPATOBILIARY: No focal liver lesion. Status post cholecystectomy. SPLEEN: No splenomegaly. PANCREAS: No focal masses or ductal dilatation. ADRENALS: Low-density 1.7 cm left adrenal nodule is consistent with a benign adenoma. No further follow-up imaging is necessary. No right adrenal nodule. KIDNEYS/URETERS: 7 mm obstructive calculus at the left ureterovesical junction with severe associated left hydroureteronephrosis. 3.3 mm calcific density in the facility of the right ureterovesical junction may also represent an obstructive ureteral calculus. Moderate right hydroureteronephrosis. Additional punctate 2 to 3 mm renal calculi in the upper pole and lower pole of the right kidney. PELVIC ORGANS/BLADDER: Status post hysterectomy. PERITONEUM / RETROPERITONEUM: No free air or fluid. LYMPH NODES: No lymphadenopathy. VESSELS: Unremarkable. GI TRACT: No abnormal bowel thickening. No bowel obstruction. Normal appendix. BONES AND SOFT TISSUES: No acute osseous injury. No suspicious lytic or blastic lesions. IMPRESSION: 7 mm obstructive left ureterovesical junction calculus with severe left hydroureteronephrosis. Possible 3.3 mm calculus at the right ureterovesical junction with moderate right hydroureteronephrosis. Additional punctate right renal calculi. Signed by: Jen Romeo MD on 10/01/2019 11:12 AM Diagnostics Tests Diagnostic test(s) reviewed: Yes Critical Care Time Subsequent provider I assumed direction of critical care for this patient from another provider of my specialty. Assessment & Plan Assessment & Plan Final Impression: (1) Ureterolithiasis (2) UTI (urinary tract infection) (3) Ureterovesical junction (UVJ) obstruction Assessment & Plan SPOKE WITH DR HENAO - WILL SEE PT REGARDING POSSIBLE NEED FOR STENT, SPOKE WITH DR RODRIGUEZ FOR ADMISSION Last Vital Signs Date Time Temp Pulse Resp B/P (MAP) Pulse Ox O2 Delivery O2 Flow Rate FiO2 10/01/19 10:20 60 17 170/106 100 10/01/19 09:45 97.2 Medications in the ED Ondansetron HCl 4 mg ONCE STAT IV Last administered on 10/01/19at 10:00; Admin Dose 4 MG; Start 10/01/19 at 09:41; Stop 10/01/19 at 09:55; Status DC Ketorolac Tromethamine 30 mg ONCE STAT IV Last administered on 10/01/19at 10:00; Admin Dose 30 MG; Start 10/01/19 at 09:41; Stop 10/01/19 at 09:55; Status DC Sodium Chloride 1,000 ml @ 0 mls/hr Q0M STAT IV Last administered on 10/01/19at 10:00; Admin Dose 999 MLS/HR; Start 10/01/19 at 09:41; Stop 10/01/19 at 09:44; Status DC Ceftriaxone Sodium 50 ml @ 100 mls/hr ONCE ONCE IV ; Start 10/01/19 at 11:00; Stop 10/01/19 at 11:29; Status DC Sodium Chloride 1,000 ml @ 100 mls/hr Q10H IV ; Start 10/01/19 at 11:45; Stop 10/31/19 at 11:44; Status UNV Morphine Sulfate 4 mg Q4H PRN IV SEVERE PAIN (7-10); Start 10/01/19 at 11:45; Stop 10/08/19 at 11:44; Status UNV Ondansetron HCl 4 mg Q4H PRN IV NAUSEA; Start 10/01/19 at 11:45; Stop 10/31/19 at 11:44; Status UNV Ceftriaxone Sodium 50 ml @ 100 mls/hr Q12H IV ; Start 10/01/19 at 11:45; Stop 10/08/19 at 11:44; Status MATEOV JESSICA CASTRO MD October 01, 2019 11:55
--- OUTSIDE RECORDS SUMMARY | 2019-10-01 11:57 | XMS REPORT | Clinical Summary ---
Author Author [facility] Organization [facility] Address Unknown Phone Unavailable Care Team Providers Care Aviation Operations Specialist Name Role Phone Asked, No Pcp PCP [...] Advance Directives For more information, please contact: [phone] Patient Materials Analyst Explanation Type Date Recorded Advance Directives, Living Will and Medical Power of Stereo Compiler
--- OUTSIDE RECORDS SUMMARY | 2019-10-01 11:58 | XMS REPORT | Continuity of Care Document ---
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 contrast CT Clinical Indication: [...] to patient size -Use of iterative reconstruction [employer]ro[employer] CT Radiation Dose DLP 808 mGy-cm FINDINGS: [...] contrast for further evaluation. SL: [id number] 12/17/2018 [facility] Spine cervical wo contrast CT Procedure: CT [...] to patient size -Use of iterative reconstruction [employer] ue CT Radiation Dose DLP 896 mGy-cm [...] or subluxations of the c ervical spine. [id number] 12/17/2018 [facility] Brain wo contrast CT CT head w [...] No acute intracranial abnormality. SL: [id number] 12/17/2018 [facility] Pelvis w Transvag and Pelvis Doppler US Patient Name: ERNESTINA PERRY : 1975; Age: 42 years y/o Female MR: [id number] Study: Pelvis w Transvag and Pelvis Doppler [...] cyst is presen t. SL: [id number] 10/26/2017 [facility] Chest 2 views DX Study: Chest 2 views DX 09/18/2017 12:27 PM CDT Clinical Indication: - cough and upper abdominal pain; Comparison: Chest x-ray 03/13/2017 FINDINGS: The cardiomediastinal silhouette and pulmonary vasculature are within normal limits for projection and degree of inspiration. No lobar consolidation, effusion, or pneumothorax. No pleural abnormalities are seen. No acute bony abnormalities. IMPRESSION: No acute intrathoracic abnormalities. SL: [id number] 09/18/2017 [facility] Renal Stone CT CT SCAN OF THE [...] nodule is present likely an adenoma. SL: [id number] 09/18/2017 [facility] Renal Stone CT Clinical Indica tion: Left [...] Incidentally noted left adrenal adeno ma. SL: [id number] 03/18/2017 [facility] Renal Stone CT EXAM: CT renal stone [...] appendix. No free fluid. SL: TVU-PC 03/13/2017 [facility] Chest 1view DX EXAM: XR CHEST 1 VIEW DATE: 03/13/2017 5:51 PM PATIENT CARE REPRESENTATIVE INDICATION: Chest pain. COMPARISON: None Available. TECHNIQUE: A single AP view of the chest was obtained. FINDINGS: Mild elevation of the right hemidiaphragm is noted. No focal consolidation or pneumothorax is identified. The cardiomediastinal silhouette is within normal limits. The costophrenic recesses are sharp and without effusion. No acute osseous abnormality is noted. IMPRESSION: No acute cardiopulmonary abnormality. SL: [id number] 03/13/2017 [facility] Consultation Notes No Data Provided for This Section Discharge Summaries No Data Provided for This Section History and Physicals No Data Provided for This Section Vital Signs Vital Sign Value Date Comments Source Temperature Oral (F) 98.9 F 06/09/2019 [facility] Heart Rate 72 06/09/2019 [facility] Respitory Rate 16 06/09/2019 [facility] Systolic (mm Hg) 136 06/09/2019 [facility] Diastolic (mm Hg) 82 06/09/2019 [facility] Systolic (mm Hg) 142 06/08/2019 [facility] Diastolic (mm Hg) 99 06/08/2019 [facility] Heart Rate 66 06/08/2019 [facility] Respitory Rate 20 06/08/2019 [facility] Temperature Oral (F) 98 F 06/08/2019 [facility] Weight 118.182 06/08/2019 [facility] Heart Rate 88 12/18/2018 [facility] Respitory Rate 16 12/18/2018 [facility] Systolic (mm Hg) 121 12/18/2018 [facility] Diastolic (mm Hg) 82 12/18/2018 [facility] Temperature Oral (F) 97.9 F 12/18/2018 [facility] Heart Rate 79 12/18/2018 [facility] Respitory Rate 16 12/18/2018 [facility] Systolic (mm Hg) 136 12/18/2018 [facility] Diastolic (mm Hg) 91 12/18/2018 [facility] Systolic (mm Hg) 143 12/18/2018 [facility] Diastolic (mm Hg) 83 12/18/2018 [facility] Respitory Rate 17 12/18/2018 [facility] Heart Rate 90 12/18/2018 [facility] Temperature Oral (F) 98.2 F 12/18/2018 [facility] Temperature Oral (F) 98.5 F 12/17/2018 [facility] Weight 97 0 12/17/2018 [facility] Respitory Rate 17 10/27/2017 [facility] Heart Rate 86 10/27/2017 [facility] Systolic (mm Hg) 113 10/27/2017 [facility] Diastolic (mm Hg) 82 10/27/2017 [facility] Temperature Oral (F) 98.5 F 10/27/2017 [facility] BMI Calculated 32.35 10/26/2017 [facility] Temperature Oral (F) 98.5 F 10/26/2017 [facility] Height 167.64 cm 10/26/2017 [facility] Weight 90.909 10/26/2017 [facility] Respitory Rate 17 10/26/2017 [facility] Systolic (mm Hg) 123 10/26/2017 [facility] Diastolic (mm Hg) 59 10/26/2017 [facility] Heart Rate 113 10/26/2017 [facility] Temperature Oral (F) 98.1 F 09/18/2017 [facility] Heart Rate 71 09/18/2017 [facility] Systolic (mm Hg) 128 09/18/2017 [facility] Diastolic (mm Hg) 75 09/18/2017 [facility] Respitory Rate 19 09/18/2017 [facility] Respitory Rate 16 09/18/2017 [facility] Heart Rate 79 09/18/2017 [facility] Systolic (mm Hg) 135 09/18/2017 [facility] Diastolic (mm Hg) 78 09/18/2017 [facility] Weight 100 09/18/2017 [facility] BMI Calculated 35.58 09/18/2017 [facility] Heart Rate 72 09/18/2017 [facility] Respitory Rate 18 09/18/2017 [facility] Height 167.64 cm 09/18/2017 [facility] Systolic (mm Hg) 144 09/18/2017 [facility] Diastolic (mm Hg) 92 09/18/2017 [facility] Temperature Oral (F) 98.3 F 09/18/2017 [facility] Systolic (mm Hg) 143 03/19/2017 [facility] Diastolic (mm Hg) 85 03/19/2017 [facility] Respitory Rate 18 03/19/2017 [facility] Heart Rate 70 03/19/2017 [facility] Temperature Oral (F) 98.1 F 03/19/2017 [facility] Temperature Oral (F) 98.1 F 03/19/2017 [facility] Weight 90.909 03/19/2017 [facility] Systolic (mm Hg) 146 03/19/2017 [facility] Diastolic (mm Hg) 105 03/19/2017 [facility] Heart Rate 71 03/19/2017 [facility] Respitory Rate 18 03/19/2017 [facility] Systolic (mm Hg) 142 03/14/2017 [facility] Diastolic (mm Hg) 88 03/14/2017 [facility] Temperature Oral (F) 98.1 F 03/14/2017 [facility] Heart Rate 84 03/14/2017 [facility] Respitory Rate 14 03/14/2017 [facility] Weight 90.909 03/13/2017 [facility] BMI Calculated 32.35 03/13/2017 [facility] Systolic (mm Hg) 146 03/13/2017 [facility] Diastolic (mm Hg) 90 03/13/2017 [facility] Height 167.64 cm 03/13/2017 [facility] Temperature Oral (F) 98.4 F 03/13/2017 [facility] Respitory Rate 20 03/13/2017 [facility] Heart Rate 80 03/13/2017 [facility] Encounters Location Location Details Encounter Type Encounter Number Reason For Visit Attending Provider ADM Date DC Date Status Source [facility] Emergency [id number] Ernst Jaswinder 03/13/2017 03/14/2017 [facility] Emergency [id number] Emily Alcanter 03/19/2017 03/19/2017 [facility] Emergency [id number] Emily Alcanter 09/18/2017 09/18/2017 [facility] Emergency [id number] Jose Luis Barbie 10/26/2017 10/27/2017 [facility] Emergency [id number] Alonso Hwang 12/17/2018 12/18/2018 [facility] Emergency [id number] Saman Vásquez 06/08/2019 06/09/2019 [facility] Procedures No Data Provided for This Section Assessment and Plan No Data Provided for This Section Plan of Care No Data Provided for This Section Social History Social History Date Source Social History TypeResponse Smoking Status Never smoker; Exposure to Tobacco Smoke None; Cigarette Smoking Last 365 Days No; Reg Smoking Cessation Counseling No entered on: 06/08/19 06/08/2019 [facility] Social History TypeResponse Smoking Status Never smoker; Exposure to Tobacco Smoke None; Cigarette Smoking Last 365 Days No; Reg Smoking Cessation Counseling No entered on: 12/17/18 12/18/2018 [facility] Family History No Data Provided for This Section Advance Directives No Data Provided for This Section Functional Status No Data Provided for This Section
--- OUTSIDE RECORDS SUMMARY | 2019-10-01 11:58 | XMS REPORT ---
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 1 CPT code(s): 70276 x3 pkg/wpd 11/10/18 CONTINUED ON NEXT PAGE RUN DATE: 11/10/18 [facility] PAGE 2 RUN TIME: 1827 Specimen Inquiry RUN USER: INTERFACE SPEC #: [id number] PATIENT: ERNESTINA PERRY #[id number] (Continue d) GROSS DESCRIPTION ANATOMIC SOURCE OF [...] as C1. luis fernando zurita 11/07/18 @ 9121 MICROSCOPIC DESCRIPTION Specimen #1 consists of large [...] 11/10/18 1807 ------- ----- END OF REPORT STOMACH,GUCYZP1161-39-61 16:52:00 RUN DATE: 11/10/18 [facility] PAGE 1 RUN TIME: 630 Specimen Inqui ry RUN USER: INTERFACE PATIENT: ERNESTINA PERRY ACCT #: [id number] LOC: [facility] #: [id number] AGE/SX: 43/F ROOM: [facility] RE11/05/18REG DR: Doug Pak MD : 75 BED: A DIS: 11/07/18 STATUS: DIS IN TLOC: SPEC #: [id number] RECD: 11/05/18 STATUS: JACOB NICHOLAS #: [id number] ELADIA: 11/05/18- SUBM DR: Doug Pak ENTERED: 11/05/18 SP TYPE: STOMBX OTHR DR: Dio Saldivar MD ORDERED: LEVEL IV CODES: [id number] - STOMACH, NOS COPIES TO: Dio Mendoza MD [address] [place] [address] Doug Pak MD [address] [place] [address] PROCEDURES: LEVEL IV (Incomplete) TISSUES: STOMACH, NOS - ANTRUM BIOPSY CLINICAL HISTORY 43 year old, epigastric pain (wpd) F INAL DIAGNOSIS Stomach, antrum, biopsies: - active chronic gastritis, moderate - positive for Helicobacter-like organisms on Giemsa stain Tissue code 1 CPT code(s): 40596, 26287 [place]/wpd 11/07/18 GROSS DESCRIPTION ANATOMIC SOURCE OF TISSUE (per Requisition): Antrum The specimen is received in a formalin-filled container, labeled with the patient's name and designated "antrum". The specimen consists of two kurtz soft tissues, 0.3 and 0.5 cm, submitted in toto as A1. jm/wpd 11/06/18 @ 7529 CONTINUED ON NEXT PAGE RUN DATE: 11/10/18 [facility] PAGE 2 RUN TIME: 630 Specimen Inquiry RUN USER: INTERFACE SPEC #: [id number] PATIENT: ERNESTINA PERRY #[id number] (Continued) MICROSCOPIC DESCRIPTION Gastric antral biopsies show acute and chronic inflammation in the lamina propria. No ulceration is p resent. Giemsa stain is positive for Helicobacter-like organisms with an appr opriately stained control. cds/wpd 11/07/18 Signed Jean Correa Ezra 11/07/18 1652 END OF RE PORT - CT ABD PELVIS W/JLJJ4816-18-05 15:34:00 Patient Name: ERNESTINA PERRY Unit No: [id number] EXAMS: CPT CODE: [id number] CT ABD PELVIS W/CONT 11951 Exam: CT scan of the abdomen and [...] st ructures demonstrated no significant abnormality. [facility] NAME: ERNESTINA PERRY Radiology Department PHYS: Doug Wise MD [address] : 1975 AGE: 43 SEX: F [place], [place] [address] LOC: F.2660 A PHONE #: [phone] EXAM D ATE: 11/03/2018 STATUS: ADM IN FAX #: [phone] RAD NO: Page 1 Signed Report 1 Patient Name: ERNESTINA PERRY Unit No: [id number] EX AMS: CPT CODE: [id number] CT ABD PELVIS W/CONT 54112 <Continued> IMPRESSION: 1. Hepatic steatosis. 2. Left adrenal adenoma. 3. Post cholecystectomy and hysterectomy. 4. Small fat-containing inguinal hernia on the left. 5. Right ovarian cyst and involuting left ovarian cyst. at 1534 Reported and signed by: Lizy Perea MD CC: Technologist: Cahrli Chanel RT, CT CTDI: 16.26 DLP: 1865.03 Trnscrbd D/ (1534) t.[email or web address] [facility] NAME: VICKYERNESTINA Radio logy Department PHYS: Doug Wise MD [address] : 1975 AGE: 43 SEX: F [place], [place] [address] LOC: Reji2660 A PHONE #: [phone] EXAM DATE: 11/03/2018 STATUS: ADM IN FAX #: [phone] RAD NO: Page 2 Signed Report 1 Patient Name: ERNESTINA PERRY Unit No: [id number] EXAMS: CPT COD E: [id number] CT ABD PELVIS W/CONT 79725 <Continued> Orig Print D/T: S: 11/03/2018 (1537) [facility] NAME: ERNESTINA PERRY Radiology Department PHYS: Doug Wise MD [address] : 1975 AGE: 43 SEX: F [place], [place] [address] LOC: Adri A PHONE #: [phone] EXAM DATE: 11/03/2018 STATUS: ADM IN FAX #: [phone] RAD NO: Page 3 Signed Report 1 - US TRANSVAGINAL W/QVKHTH1820-44-87 14:44:00 Patient Name: ERNESTINA PERRY Unit No: [id number] EXAMS: CPT CODE: [id number] US TRANSVAGINAL W/PELVIS 51197 CLINICAL HISTORY: Left lower quadrant pain. COMPARISON: [...] simple follicle in the left ovary. at 1283 Reported and signed by: Adams Jacques MD CC: Technologist: Christopher Garcia RDMS, RVT Probe: [id number] Trnscrbd D/ (1623) Cj Orig Print D/T: S: 11/03/2018 (9132) [facility] N CHENG: ERNESTINA PERRY Radiology Department PHYS: Doug Wise MD [address] : 1974 AGE: 43 SEX: F [place], [place] [address] LOC: F.2660 A PHONE #: [phone] EXAM DATE: 11/03/2018 STATUS: ADM IN FAX #: [phone] RAD NO: Page 1 Signed Report Patient Name: ERNESTINA ROSE Unit No: [id number] EXAMS: CPT CODE: [id number] [place] TRANSVAGINAL W/[place] [address] <Continued> [facility] NAME: IVET PERRYANA Radiology Department PHYS: Doug Wise MD [address] : 1975 AGE: 43 SEX: F [place], [place] [address] LOC: F.2660 A PHONE #: [phone] EXAM DATE: 11/03/2018 STATUS: ADM IN FAX #: [phone] RAD NO: Page 2 Signed Report - US PELVIS MSMSWAML6457-35-44 14:44:00 Patient Name: ERNESTINA PERRY Unit No: [id number] EXAMS: CPT CODE: [id number] US PELVIS COMPLETE 31295 CLINICAL HISTORY: Left lower quadrant pain. COMPARISON: [...] simple follicle in the left ovary. at 7103 Reported and signed by: Adams Jacques MD CC: Technologist: Christopher Garcia RDMS, RVT Probe: Trnscrbd D/ (9212) Cj Orig Print D/T: S: 11/03/2018 (7194) [facility] NAME: ERNESTINA PERRY Radiology Department PHYS: Doug Wise MD [address] : 1975 AGE: 43 SEX: F [place], [place] [address] LOC: Kaylan.2660 A PHONE #: [phone] EXAM DATE: 11/03/2018 STATUS: ADM IN FAX #: [phone] RAD NO: Page 1 Signed Report Patient Name: ERNESTINA PERRY Unit No: [id number] EXAMS: CPT CODE: [id number] US PELVIS COMPLETE [address] < Continued> [facility] Department PHYS: Doug Wise MD [address] : 1975 AGE: 43 SEX: F [place], [place] [address] LOC: F.2660 A PHONE #: [phone] EXAM DATE: 11/03/2018 STATUS: ADM IN FAX #: [phone] RAD NO: Page 2 Signed Report COMPREHENSIVE METABOLIC IEYUV2057-04-68 13:55:00* Test Item Value Reference Range Interpretation [...] code = ALKP) 85 units/L 46-116 N MSWZSLU7383-89-71 13:55:00* Test Item Value Reference Range Interpretation Comments AMYLASE (test code = JAVID) 37 units/L 30-110 N IORZDS8655-01-69 13:55:00* Test Item Value Reference Range Interpretation Comments LIPASE (test code = LIP) 110 units/L 73-393 N URINALYSIS MRXXMHFQ0485-42-64 13:25:00* Test Item Value Reference Range Interpretation [...] NONE SEEN URINE SAMPLE: CLEAN CATCHCBC W/AUTO AZRM9218-61-80 13:18:00* Test Item Value Reference Range Interpretation [...] code = PLTMR) NORMAL MERRITT L CHEM ZTCKS9944-41-20 22:51:0028MH [facility] UHRYB4357-59-85 22:51:003.5MH [facility] NZCYM7840-19-50 22:51:0069 [facility] SQPQQ4518-39-53 22:51:73010EQ [facility] YUNJY4991-05-62 22:51:0096 [facility] PANEL 2017-10-26 22:51:000.6M [facility] JKOLJ2459-58-38 22:51:0096 [facility] IYRSW7297-83-90 22:51:009 [facility] VOJNO7239-00-32 22:51:003.6M [facility] XVCJW5140-50-28 22:51:000.70 [facility] HXTQJ0732-28-51 22:51:92872YJ [facility] UPKEQ4350-48-00 22:51:10366ZD [facility] PANEL 2017-10-26 22:51:007.6M [facility] EVIVA6223-90-18 22:51:0025[facility] HJRMN2962-74-17 22:51:009.5[facility] WomenCHE[facility] FEMPP9380-87-24 22:51:004.1[facility] HospitalCHE[facility] CFEQJ5514-39-47 22:51:00* Test Item Value Reference Range Interpretation Comments A/G Ratio (test code = A/G Ratio) 0.9 1 0.7-1.6 [facility] DVDAR0665-71-19 22:51:0012.6MS[facility] HospitalCHEM SSOOY9674-62-98 22:51:00* Test Item Value Reference Range Interpretation Comments B/C Ratio (test code = B/C Ratio) 13 1 6-25 [facility] WomenKcbeunvnoOAILCLRVOJWLB8184-32-14 22:51:00Negative *NA*(10/26/17 5:51 PM) VnxxisbllDNRRMQZCGF3782-52-81 22:51:000.7 OssrjzqceFHQXAMQEKE4985-02-15 22:51:002.0[facility] WomenWwonyrbdiLJTBEFUXED0949-89-11 22:51:008.2M SoutheastHEMAT[facility] 2017-10-26 22:51:000.6M FihhwytvfLEZKFWMDAX4242-96-05 22:51:006.2[facility] NXPFSVEXOU4763-18-28 22:51:001.0[facility] WomenZgevmzvfhZJQZSPKRTA5451-20-40 22:51:000.1M TalwmkqyiCJKOCZBPPY2650-84-48 22:51:000.1M AtfvzlspiFYRMQMGEOB3990-84-23 22:51:0018.1M EgvlblmojUMLLLXZXJY6299-03-72 22:51:0074.1M [facility] 2017-10-26 22:51:009.4 RferscjoaLWJVRDYBJX1470-92-54 22:51:61148YY[facility] UQVMWQWAYW6688-68-45 22:51:0032.5 EnrunuiqyUADUJTIOQO0425-24-19 22:51:0081.6M QxzaortiwYAHIRBGOQK3778-46-21 22:51:0041.1M EgqqbfxttPXPUBUCKKN1176-33-12 22:51:00* Test Item Value Reference Range Interpretation Comments MCH (test code = MCH) 26.5 pg 27.0-31.0 JuivazaynFQVGSGSBDU7366-13-22 22:51:0021.4 HdjfifouuLZFRGIRQWX6808-19-25 22:51:005.04 NnutkylnbUIWKQQBLYE8925-01-62 22:51:0011.1M SoutheastHEMATOLOGY 2017-10-26 22:51:0013.4 SoutheastUR[facility] AND MUVNS1898-89-77 22:51:00Clear (10/26/17 5:51 PM) [facility] TUNCA6087-03-19 22:51:00Yellow *NA*(10/26/17 5:51 PM) [facility] PPRTB1622-14-74 22:51:00* Test Item Value Reference Range Interpretation Comments UA pH (test code = UA pH) 5.0 1 5.0-8.0 [facility] AND GPDNJ2855-42-09 22:51:00* Test Item Value Reference Range Interpretation Comments UA Spec Grav (test code = UA Spec Grav) 1.017 1 [facility] AND AJTVO5948-64-98 22:51:00Negative *NA*(10/26/17 5:51 PM) [facility] MVURD6785-59-37 22:51:00Large *ABN*(10/26/17 5:51 PM) [facility] FJSLQ2444-99-18 22:51:00>182MH [facility] STOOL 2017-10-26 22:51:00Negative (10/26/17 5:51 PM)[facility] STOOL 2017-10-26 22:51:001 [facility] AND MHQYV0359-29-88 22:51:00Negative (10/26/17 5:51 PM)[facility] QGVTS0926-67-23 14:34:45265AS[facility]2018-05-16 14:34:11684YX[facility]. [facility]2018-05-16 14:34:0080[facility] NNRRH1410-77-24 14:34:000.4MH [facility] KTRJQ9902-85-83 14:34:0032[facility] AECNN3006-02-60 14:34:0049[facility] PANEL 2017-09-18 14:34:006.9[facility] KTOLN4933-56-81 14:34:003.2MH [facility] CHEM NGJQX5276-24-65 14:34:63880RPCollis P. [facility] Hospital2018-05-16 14:34:003.8[facility]2018-05-16 14:34:008.9[facility]2018-05-16 14:34:0027[facility]2018-05-16 14:34:70545CGBoston [facility] PANEL 2017-09-18 14:34:26975NQ[facility] LVCGI1757-57-43 14:34:000.57[facility] DKEQA1677-19-64 14:34:0011[facility]2018-05-16 14:34:00* Test Item Value Reference Range Interpretation Comments A/G Ratio (test code = A/G Ratio) 0.9 1 0.7-1.6 [facility]2018-05-16 14:34:003.7[facility]2018-05-16 14:34:0012.8[facility]2018-05-16 14:34:00* Test Item Value Reference Range Interpretation Comments B/C Ratio (test code = B/C Ratio) 19 1 6-25 [facility] WomenPoyufvaooXYWMAMKKDVYNS6246-84-86 14:34:00Negative *NA*(09/18/17 9:34 AM)[facility]CybjhzqomBJLFEZUAKG5358-37-23 14:34:0077.5[facility] HospitalBkbyxidlqEJGWQCJHSR4425-26-58 14:34:00* Test Item Value Reference Range Interpretation Comments MCH (test code = MCH) 24.5 pg 27.0-31.0 MH BuozmjjbyMLQMPUAZZY1468-59-25 14:34:0010.9 WqqxhwwkyWEYCUITOSI7161-20-38 14:34:0034.5 MdcxfstvyUNVRXJWJCK2006-76-27 14:34:004.45 [facility] 2017-09-18 14:34:006.9 GioxtcxrfAQWSYVZFZC3407-12-33 14:34:70470UEFree [facility] for [facility] HQSKHKXASQ6751-86-16 14:34:009.7 QdmbjgwjfDXFREDCMJV7040-50-84 14:34:0031.7 GtitqnxilTSKUYGMVXR3744-18-44 14:34:0015.7 LdyjifkecCKKMSPXHJS9735-36-76 14:34:0031.1M JaqoiqegyQFDUKSQMUU5509-32-50 14:34:006.5[facility] 2017-09-18 14:34:003.9 WybtmzovnPOMRQAMYDQ4709-81-81 14:34:001.4[facility]2018-05-16 14:34:0056.4 QzhxahhdnFCABXBIOED3379-16-75 14:34:004.6M CsyxffxwlEIQWSFNJRE7752-56-55 14:34:001+ *ABN*(09/18/17 9:34 AM)[facility] LVCIRGOOVE1936-96-16 14:34:000.4[facility] WomenMqtkydxxnXOWCMQMBFV6743-37-51 14:34:002.1M BokrwebxiVXQDWSVCKV8516-72-00 14:34:000.1M BwsleevoxGSAYVKEDSE6270-78-35 14:34:000.3MH [facility]UR[facility] AND BZWML6879-01-55 14:34:0072 [facility] TMRWX9285-79-17 14:34:003 [facility] SBXIO6577-64-49 14:34:00Negative (09/18/17 9:34 AM) [facility] XKLDO0237-10-12 14:34:00Negative (09/18/17 9:34 AM) [facility] XLJUM5612-63-66 14:34:00Large *ABN*(09/18/17 9:34 AM) [facility] RQFNR9332-55-68 14:34:00Negative *NA*(09/18/17 9:34 AM) [facility] PFVUO8069-07-28 14:34:00* Test Item Value Reference Range Interpretation Comments UA pH (test code = UA pH) 5.0 1 5.0-8.0 [facility] TDWOO8441-74-07 14:34:00* Test Item Value Reference Range Interpretation Comments UA Spec Grav (test code = UA Spec Grav) 1.021 1 MH [facility] AND OKPGC8256-40-18 14:34:00Clear (09/18/17 9:34 AM)[facility] AND QNWNE7923-14-39 14:34:00Yellow *NA*(09/18/17 9:34 AM) [facility] UGIEO7825-44-79 03:46:004 [facility] STOOL 2017-03-19 03:46:006 [facility] UZUHJ4305-44-36 03:46:00Negative (03/18/17 9:46 PM) [facility] QPUOS1460-75-28 03:46:00Yellow *NA*(03/18/17 9:46 PM) [facility] KUPFJ7083-42-59 03:46:001.026 [facility] INKUF8682-37-28 03:46:00Clear (03/18/17 9:46 PM) [facility] VAHUF8589-63-82 03:46:005.0 [facility] SEVEH6768-46-37 03:46:00Negative *NA*(03/18/17 9:46 PM) [facility] AMWNL1280-87-52 03:46:00Negative (03/18/17 9:46 PM) [facility] DIZIU5581-75-20 03:46:00Small *ABN*(03/18/17 9:46 PM) SoutheastCHEM DNCIW5358-57-14 03:34:00 217 SoutheastCHEM SVTMB6089-29-40 03:34:0084 [facility] FGWTQ2468-10-71 03:34:000.8MH [facility] EEGQX5364-85-14 03:34:07997NO [facility] PANEL 2017-03-19 03:34:0010 [facility] QKFSL0964-94-07 03:34:0096 [facility] OFJOB9035-71-93 03:34:93176ZC [facility] NICNQ9819-89-09 03:34:06492AK [facility] DOPAX2149-06-86 03:34:0023 [facility] CGVWA7251-28-64 03:34:0024 [facility] JHOGT4217-02-33 03:34:003.2MH [facility] PANEL 2017-03-19 03:34:009.3MH [facility] SXGFS4771-36-75 03:34:000.86MH [facility] IKGOJ3869-30-30 03:34:0054 [facility] NUSFU9191-57-61 03:34:003.1MH [facility] OCRNY6476-35-95 03:34:007.5 [facility] FQUCG3952-68-42 03:34:000.7 [facility] QKLNE1229-63-42 03:34:0013.2M [facility]CHE[facility] PANEL 2017-03-19 03:34:0012 [facility] FNFOI4917-73-48 03:34:004.4[facility] FXYDGFCOKPNWZ9779-18-12 03:34:00Negative *NA*(03/18/17 9:34 PM)[facility] ZWJOIMVLES2330-35-22 03:34:005.9[facility] WomenPgneodadqJLMWOKJQKV4716-96-18 03:34:000.5[facility] WomenXfslojfomWSEFMXFXXX6251-79-64 03:34:001.6M TrbxvnioiUMLVRNMESX0193-39-01 03:34:0021.4[facility] WomenLiljwhyfrIGTOGBXQDQ8718-40-25 03:34:0069.8 [facility]HEMAT[facility] 2017-03-19 03:34:006.7 JwutuorvaZNWYBLKPXP6755-03-38 03:34:000.6[facility] DHYXUSMOVS9433-43-04 03:34:001.8[facility] WomenGpjhxxtpkVYJUFXKGNX2221-43-10 03:34:000.1M CvpocnwmtGKZPLEPPGR5744-49-02 03:34:0015.6M SxvmbwczcUITTOLMGJO1951-63-67 03:34:0034.1M AgwvxjwkyATTJIVWGZZ7917-33-26 03:34:00* Test Item Value Reference Range Interpretation Comments MCH (test code = MCH) 28.8 pg 27.0-31.0 KwoloynenCZJUVONIKM0008-17-99 03:34:0084.5 RlfkztxrdDKGSUFPRSK3129-58-48 03:34:23993QM KfiddidxmGGXCWTLFVD3933-38-57 03:34:0038.3MH [facility] 2017-03-19 03:34:0013.0MH LhkfwxbaiANYHGLXSUA3195-37-08 03:34:004.53MH [facility] SOSWZLPMKT4765-46-40 03:34:009.3MH IqkawfotwPVRSWNSLVB7057-00-37 03:34:008.5MH SoutheastCARDIAC DBHNZLC7415-07-20 00:04:001.2MH [facility]CARDIAC ENZYMES 2017-03-14 00:04:001.2MH [facility]CARDIAC TAEPJKO7390-25-05 00:04:000.03MH [facility]CARDIAC EUCQTYI1497-80-81 00:04:00764OT SoutheastCHEM MUWAZ0056-08-68 00:04:06723RY [facility] RJMPF8478-45-30 00:04:0091MH [facility]CHEM PANEL 2017-03-14 00:04:003.6MH [facility] FWDSS4738-54-05 00:04:009.4MH [facility] CHE[facility] AASDO1130-54-79 00:04:0089MH [facility]CHE[facility] TKTAC8020-72-34 00:04:0024MH [facility]CHE[facility] CUKRE9991-74-69 00:04:003.7MH [facility] UBDSA1437-04-95 00:04:34644XR [facility] HXXMS9551-15-04 00:04:90141BT [facility]CHEM PANEL 2017-03-14 00:04:35767NU [facility]CHE[facility] RZABM7648-23-63 00:04:007.3MH [facility] ROLAK4013-10-71 00:04:0010MH [facility]CHEM UQWVU3747-05-56 00:04:0012MH [facility]CHE[facility] SAIIB1360-24-36 00:04:003.7MH [facility] RIIUV7255-47-23 00:04:000.9MH [facility] UFSMA1551-65-83 00:04:0010.7MH [facility]CHE[facility] PANEL 2017-03-14 00:04:001.0MH [facility]CHE[facility] OCEJS2409-92-00 00:04:27302SE [facility] CHE[facility] WYJYQ3042-70-97 00:04:0057MH SoutheastCHEM TLFHO0068-47-89 00:04:000.80MH MxadliyncDOJUSQEGHS5003-63-04 00:04:001.5MH WzfkemxzsNRBLVETRWW5481-88-12 00:04:000.1MH CtfobagsfVPYHPPFVPW2853-73-76 00:04:000.1MH [facility] 2017-03-14 00:04:000.6MH WgtxvggadRMGXOKRUEM7916-49-34 00:04:0014.6MH [facility] OTUFSPGQXC3182-97-72 00:04:0077.8 VnzxlpkwvNJFYKLJLWM4187-12-56 00:04:008.0 KroneanbjBSRVERBSRB6101-69-28 00:04:001.0 TelojjyzuCHHDBODDJL4168-05-81 00:04:001.0 GkohwkxpuXPJEHQMLVH3163-74-94 00:04:005.6M [facility] 2017-03-14 00:04:009.6M YrdkfgwyrILFJOMSWBM9698-83-21 00:04:26976EW [facility] NYJAFQXQDJ5759-31-87 00:04:0016.1M KyscmnfdhKHKUBBOTSE7172-49-51 00:04:0033.4 BjgnluchxADFJJVVJKD4432-31-90 00:04:0086.9 JvzgakbgiVJGHZPIKDX8814-44-06 00:04:00* Test Item Value Reference Range Interpretation Comments MCH (test code = MCH) 29.0 pg 27.0-31.0 QpsictgmcVZFODTCTKL1656-69-56 00:04:0041.1M VijcchsayNCXKDCLEKO5590-18-09 00:04:004.74 AkzylqqfwFGXCGLSVJA2992-46-07 00:04:0013.7 [facility] 2017-03-14 00:04:0010.3MH [facility] QOJBW3868-47-02 00:04:00Large *ABN*(03/13/17 6:04 PM) [facility] INWPD3546-95-36 00:04:00Negative (03/13/17 6:04 PM) [facility] OKJJK6481-37-76 00:04:00>182MH [facility] KGLNG2195-70-42 00:04:0015MH [facility] XNAYF7435-55-19 00:04:006.0 [facility] HTIJF5476-96-10 00:04:00Negative *NA*(03/13/17 6:04 PM)[facility] AND LOEAS6618-93-77 00:04:00Negative (03/13/17 6:04 PM) [facility] AND GYACW2611-91-50 00:04:001.015[facility] AND STOOL 2017-03-14 00:04:00Slight *ABN*(03/13/17 6:04 PM)[facility] AND STOOL 2017-03-14 00:04:00Yellow *NA*(03/13/17 6:04 PM)[facility] IKWN7556-15-18 00:04:00Negative (03/13/17 6:04 PM)[facility]
[2019-10-01] MEDS: ONDANSETRON HCL INJ 2MG/ML 2ML 2 MG/ML VIAL IV PRN (13:00)
[2019-10-01] MEDS: SODIUM CHLORIDE 0.9% 1000ML 1,000 ML IV SCH ×2 (13:00→17:05)
[2019-10-01] MEDS: CEFTRIAXONE SOD 1 GM/NS 50 ML 50 ML IV SCH ×2 (14:00→20:11)
--- NOTE | 2019-10-01 15:04 | NUR ---
RECEIVED PT FROM ER VIA WC. PAIN ABOUT 07/13. IV IN RAC
--- NOTE | 2019-10-01 16:15 | NUR ---
IV INFUSING WITHOUT DIFFICULTY. PT INFORMED SHE NPO ORDER. AT BEDSIDE.
[2019-10-01 16:25] VITALS: BP 176/97
--- NOTE | 2019-10-01 18:03 | NUR ---
NO CHANGES IN PT STATUS AT THIS TIME.
--- NOTE | 2019-10-01 19:00 | NUR ---
Resumed care of patient. Patient awake and resting in bed, no s/s of distress at this time. All safety measures in place. Will continue to monitor.
[2019-10-01 20:00] VITALS: BP 136/98
[2019-10-01 20:44] VITALS: BP 136/98
[2019-10-01] MEDS ORDERED: ZOLPIDEM TARTRATE 5 MG TAB PO PRN (21:15)
[2019-10-01] MEDS ORDERED: DOCUSATE SODIUM 100 MG CAP PO PRN (21:15)
[2019-10-01 21:33] LABS: CHOL/HDL RATIO 3.4 (3.0-3.6)
[2019-10-02] VITALS (8 sets, daily range): BP systolic 113–149; BP diastolic 67–91
--- NOTE | 2019-10-02 00:47 | Consultation ---
DATE OF CONSULTATION: 10/01/2019 Urology Consultation Consultation is called by Dr. Zhang in the ER. CHIEF COMPLAINT AND REASON FOR CONSULTATION: Stones. HISTORY OF PRESENT ILLNESS: Mrs. Laura Hurt is a 44-year-old female with a history of 2 days sharp severe left-sided flank pain, unrelenting. She has had this pain frequently. She has passed previous kidney stones. This is exact the same pain. She denied fevers. No chills. Positive for nausea. Denied vomiting. PAST MEDICAL HISTORY: Kidney stones. PAST SURGICAL HISTORY: Status post cholecystectomy, status post hysterectomy. MEDICATIONS: Please see MAR. ALLERGIES: NKDA. SOCIAL HISTORY: Denied smoking or drinking. FAMILY HISTORY: Denied urologic stones or malignancies. REVIEW OF SYSTEMS: Noncontributory other than problems mentioned above for 12-organ systems. PHYSICAL EXAMINATION: GENERAL: A middle-aged female, in no distress currently. VITAL SIGNS: Temperature 97.8, pulse 67, respirations 18, and blood pressure 176/97. HEENT: Sclerae anicteric. NECK: Supple. BACK: Without costovertebral bilaterally. ABDOMEN: Soft. It is nontender. It is nondistended. There is no palpable mass. No palpable hernias. No palpable groin lymphadenopathy. : Normal female external genitalia. EXTREMITIES: No edema. NEUROLOGIC: Moves all 4 extremities. PSYCH: Alert, mood appropriate. SKIN: Intact. Normal color. 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 A 1.7 cm left adrenal nodule. Hemoglobin 14, hematocrit 42, platelet count 271,000. White blood cell count 7330. Sodium 139, potassium 3.5, chloride 106, bicarb 23. BUN 12, creatinine 0.5, glucose 115. Urinalysis, greater than 10 reds, 6 to 10 whites. IMPRESSION: 1. Bilateral ureteral calculi. 2. Bilateral hydronephrosis. 3. Urinary tract infection. 4. Microscopic hematuria. 5. Right renal calculi. 6. Left adrenal nodule. 7. Hypertension. PLAN: Employ a brief trial of passage. agree with prophylactic antibiotics. Likely needs stent Thank you for allowing me to participate in the care of your patient. We will be happy to follow along with you. MD YOSVANY Montgomery/GIANLUCA /[id number] MTDAnanda
[2019-10-02 05:59] LABS: BASOPHILS # (AUTO) 0.1 (0.0-0.1); BASOPHILS % 0.8 % (0.0-1.0); EOSINOPHILS # (AUTO) 0.2 (0.0-0.4); EOSINOPHILS % 2.7 % (0.0-6.0); HEMATOCRIT 39.2 % (34.2-44.1); HEMOGLOBIN 12.6 g/dL (12.0-16.0); LYMPHOCYTES # (AUTO) 2.4 (1.0-3.2); LYMPHOCYTES % 32.4 % (18.0-39.1); MEAN CORPUSCULAR HEMOGLOBIN 28.6 pg (28-32); MEAN CORPUSCULAR HGB CONC 32.1 g/dL (31-35); MEAN CORPUSCULAR VOLUME 88.9 fL (81-99); MONOCYTES # (AUTO) 0.5 (0.2-0.8); NEUTROPHILS # (AUTO) 4.4 (2.1-6.9); PLATELET COUNT 234 x10e3/uL (140-360); RED BLOOD COUNT 4.41 x10e6/uL (3.6-5.1); RED CELL DISTRIBUTION WIDTH 13.5 % (11.7-14.4)
[2019-10-02 06:19] LABS: ALANINE AMINOTRANSFERASE 30 IU/L (0-55); ALBUMIN 3.2 g/dL (3.5-5.0); ALKALINE PHOSPHATASE 67 IU/L (40-150); ANION GAP 12.9 mmol/L (8-16); BLOOD UREA NITROGEN 11 mg/dL (7-26); BUN/CREATININE RATIO 12 (6-25); CALCIUM 9.1 mg/dL (8.4-10.2); CARBON DIOXIDE 26 mmol/L (22-29); CHLORIDE 108 mmol/L (98-107); CREATININE, SERUM 0.92 mg/dL (0.57-1.11); EST GLOMERULAR FILTRATION RATE > 60 ML/MIN (60-); GLUCOSE 101 mg/dL (74-118); SODIUM 144 mmol/L (136-145)
[2019-10-02 06:24] LABS: POTASSIUM 2.9 mmol/L (3.5-5.1)
--- NOTE | 2019-10-02 06:27 | NUR ---
Patient's potassium level 2.[address] Forbes and received orders to give 30 mg IV potassium once.
[2019-10-02] MEDS ORDERED: POTASSIUM CHLORIDE 10MEQ/100ML 300 ML IV ONE (06:30)
--- NOTE | 2019-10-02 06:44 | NUR ---
Spoke to OR nurse and informed them of patient's potassium level.
[2019-10-02] MEDS ORDERED: IOPAMIDOL 300MG/ML 50ML INFUS..BTL IV ONE (08:00)
--- NOTE | 2019-10-02 08:05 | NUR ---
H&P cc: difficulty urinating HPI: 44yoF, PCP does not recall name, developed urinary symptoms and B/L flank pain. Some nausea No vomiting/diarrhea; Symptoms for 1 week; PMH: urinary stones PShx: cholecystectomy, hysterectomy Allergies; see emr Fh/SH; ; no cigs meds; see MAR ROS: no f/cp/sob/skin rash. no cp/sob/dizziness/vision changes/confusion/focal limb weakness v/s; revd PE tired appearing anicteric ns1s2 mod bs soft B/L flanks tender no leg edema skin dry n. affect a&ox3; sanchez labs/meds revd A/P: 44yoF Left ureterolithiasis- IVF; urology consult Right hydroureteronephrosis- as above UTI- IV ceftriaxone Right nephrolithiasis- as above Hypokalemia- replace and recheck Obesity- screen for DM negative BMI 34 Prop: scd DIspo; urology consultation; Reyes Forbes MD, PhD.
[2019-10-02] MEDS ORDERED: MORPHINE SULFATE INJ 4 MG/ML INJ 1ML ONE (08:38)
[2019-10-02] MEDS ORDERED: LABETALOL HCL 5 MG/ML 20ML VIAL IV PRN (09:00)
[2019-10-02] MEDS ORDERED: HYDRALAZINE HCL 20 MG/ML VIAL ONE (09:06)
--- NOTE | 2019-10-02 09:25 | NUR ---
Patient states "I feel discomfort in my chest" Rates pain 6/10. Orders for EKG received.
[2019-10-02] MEDS: CEFTRIAXONE SOD 1 GM/NS 50 ML 50 ML IV SCH ×2 (09:55→21:19)
--- NOTE | 2019-10-02 09:56 | NUR ---
Patient states "I feel better" Denies chest pain
[2019-10-02] MEDS: SODIUM CHLORIDE 0.9% 1000ML 1,000 ML IV SCH ×2 (09:57→23:45)
[2019-10-02] MEDS: METOPROLOL TARTRATE 50 MG TAB PO SCH ×2 (13:00→21:19)
--- NOTE | 2019-10-02 13:09 | Operative Report ---
DATE OF PROCEDURE: 10/02/2019 SURGEON: Iggy Dyer MD PREOPERATIVE DIAGNOSES: 1. Bilateral ureteral calculi. 2. Bilateral hydronephrosis. 3. Hematuria. POSTOPERATIVE DIAGNOSES: Passed right ureteral calculi, otherwise same. PROCEDURES: 1. Cystourethroscopy with right ureteral catheterization and right retrograde pyelogram (separate procedure for the diagnosis of microscopic hematuria). 2. Cystourethroscopy with insertion of a left indwelling ureteral stent (entirely separate procedure for the diagnosis of left hydronephrosis). 3. Supervision of fluoroscopy. 4. Interpretation of retrograde pyelography. ANESTHESIA: General. ESTIMATED BLOOD LOSS: Minimal. COMPLICATIONS: None. INDICATIONS FOR PROCEDURE: Ms. Hurt is a very pleasant 44-year-old female patient with intractable left-sided renal colic. She and I had a long discussion about alternatives, risks, and benefits including doing nothing, stent placement, and nephrostomy. She voiced understanding of the options, alternatives, the risks, and benefits and she elected to proceed. She voiced explicit understanding that the stent is a temporary indwelling device and it must be removed and failure to do so, could lead to encrustation, infection, inflammation, atrophy, loss of the kidney, and even . PROCEDURE IN DETAIL: After informed consent was obtained, the patient was taken to the operative suite, placed supine on the operative table, underwent general anesthesia by the Anesthesia Service, placed in dorsal lithotomy position, and sterilely prepped and draped for cystoscopy. A 21-Kyrgyz cystoscope was inserted per urethra and normal urethra was noted. Panendoscopy of the bladder revealed no tumors, no stones. Both ureteral orifices were in normal anatomic location. Only the right was seen to efflux clear urine. Bilateral retrograde pyelogram was performed. The right was normal indicating passage of the previously seen stone. Left revealed a 7 mm distal ureteral calculus with severe hydronephrosis. With a moderate difficulty, a guidewire was inserted. A hydronephrotic drip was seen through the open-ended catheter. A 6 x 26 ureteral stent was deployed with a coil in the renal pelvis and a coil in the bladder. The patient's bladder was drained. She was awakened from anesthesia and transported to recovery room in excellent condition. Supervision of fluoroscopy and interpretation of retrograde pyelography: I was present for the entire procedure and supervised fluoroscopy. There was no radiologist present. Attention was turned to the left and right ureteral orifices and catheterized with an open-ended catheter. Bilateral retrograde pyelogram was performed. The right was normal. Left revealed a 7 x 7 mm distal ureteral calculus and proximal hydronephrosis. Postoperative views on left side revealed a stent in adequate position. Iggy Dyer MD ES/MODL /[id number] cc: Reyes Forbes MD
[2019-10-02] MEDS: MORPHINE SULFATE INJ 4 MG/ML INJ 1ML IV PRN ×2 (17:25→21:20)
[2019-10-02] MEDS: ACETAMINOPHEN 325 MG TAB PO PRN ×2 (18:30→23:39)
--- NOTE | 2019-10-02 19:00 | NUR ---
Report given to oncoming nurse of patient's status. Resting in bed. No signs and symptoms of acute distress noted. Side rails upx2, call light within reach.
--- NOTE | 2019-10-02 19:27 | NUR ---
Resumed care of patient. Patient awake and resting in bed, no s/s of distress at this time. All safety measures in place. Will continue to monitor.
[2019-10-02] MEDS: ONDANSETRON HCL INJ 2MG/ML 2ML 2 MG/ML VIAL IV PRN (21:20)
[2019-10-03] VITALS (8 sets, daily range): BP systolic 112–153; BP diastolic 65–87
[2019-10-03] MEDS: MORPHINE SULFATE INJ 4 MG/ML INJ 1ML IV PRN ×3 (02:17→20:26)
[2019-10-03] MEDS: ONDANSETRON HCL INJ 2MG/ML 2ML 2 MG/ML VIAL IV PRN ×2 (02:17→07:00)
[2019-10-03] MEDS: SODIUM CHLORIDE 0.9% 1000ML 1,000 ML IV SCH ×3 (03:45→20:32)
--- NOTE | 2019-10-03 06:38 | NUR ---
IM- progress note O/N see MAR ROS: no f/cp/sob/skin rash. no cp/sob/dizziness/vision changes/confusion/focal limb weakness v/s; revd PE tired appearing anicteric ns1s2 mod bs soft B/L flanks tender no leg edema skin dry n. affect a&ox3; sanchez labs/meds revd A/P: 44yoF Left ureterolithiasis- IVF; urology consult Right hydroureteronephrosis- as above UTI- IV ceftriaxone Right nephrolithiasis- as above Hypokalemia- replace and recheck Obesity- screen for DM negative BMI 34 Prop: scd DIspo; urology consultation; 5-30 stent placed left for ureterolithiasis; check labs; Reyes Forbes MD, PhD.
[2019-10-03] MEDS: CEFTRIAXONE SOD 1 GM/NS 50 ML 50 ML IV SCH ×2 (08:25→21:36)
[2019-10-03] MEDS: METOPROLOL TARTRATE 50 MG TAB PO SCH ×2 (08:26→21:50)
[2019-10-03 09:43] LABS: BASOPHILS % 0.4 % (0.0-1.0); EOSINOPHILS # (AUTO) 0.1 (0.0-0.4); EOSINOPHILS % 0.8 % (0.0-6.0); HEMATOCRIT 37.8 % (34.2-44.1); LYMPHOCYTES # (AUTO) 2.5 (1.0-3.2); LYMPHOCYTES % 26.5 % (18.0-39.1); MEAN CORPUSCULAR HEMOGLOBIN 29.6 pg (28-32); MEAN CORPUSCULAR HGB CONC 31.7 g/dL (31-35); MEAN CORPUSCULAR VOLUME 93.3 fL (81-99); MONOCYTES # (AUTO) 0.5 (0.2-0.8); MONOCYTES % 5.1 % (4.4-11.3); NEUTROPHILS # (AUTO) 6.4 (2.1-6.9); NEUTROPHILS % 66.9 % (38.7-80.0); PLATELET COUNT 215 x10e3/uL (140-360); RED BLOOD COUNT 4.05 x10e6/uL (3.6-5.1); RED CELL DISTRIBUTION WIDTH 13.9 % (11.7-14.4)
[2019-10-03 10:01] LABS: CALCIUM 8.5 mg/dL (8.4-10.2)
[2019-10-03 10:31] LABS: ANION GAP 12.5 mmol/L (8-16); CREATININE, SERUM 1.79 mg/dL (0.57-1.11); POTASSIUM 3.5 mmol/L (3.5-5.1)
--- NOTE | 2019-10-03 19:25 | NUR ---
BEDSIDE SHIFT REPORT RECEIVED FROM DAY RN. PT ALERT AND ORIENTED X3. PT REPORT CONSTIPATED. NS INFUSING VIA LT FA AT 100 ML/HR. SITE HEALTHY. PT VOIDING FREQUENTLY. ENCOURAGED PT TO CALL WHEN GET UP TO BATHROOM AFTER PAIN MED. URINE BEING STRAINED . URINE IS PINK TINGED TO HARO[place] IN COLOR. CALL LIGHT WITHIN REACH. BED LOCKED IN LOW POSITION.
[2019-10-04 00:57] VITALS: BP 129/75
[2019-10-04 05:38] VITALS: BP 127/65
[2019-10-04 05:50] LABS: BASOPHILS # (AUTO) 0.1 (0.0-0.1); BASOPHILS % 0.8 % (0.0-1.0); EOSINOPHILS # (AUTO) 0.2 (0.0-0.4); EOSINOPHILS % 2.5 % (0.0-6.0); HEMATOCRIT 38.1 % (34.2-44.1); HEMOGLOBIN 12.3 g/dL (12.0-16.0); LYMPHOCYTES # (AUTO) 3.8 (1.0-3.2); LYMPHOCYTES % 40.5 % (18.0-39.1); MEAN CORPUSCULAR HEMOGLOBIN 30.1 pg (28-32); MEAN CORPUSCULAR HGB CONC 32.3 g/dL (31-35); MEAN CORPUSCULAR VOLUME 93.2 fL (81-99); MONOCYTES # (AUTO) 0.5 (0.2-0.8); MONOCYTES % 5.6 % (4.4-11.3); NEUTROPHILS # (AUTO) 4.7 (2.1-6.9); NEUTROPHILS % 50.3 % (38.7-80.0); PLATELET COUNT 196 x10e3/uL (140-360); RED BLOOD COUNT 4.09 x10e6/uL (3.6-5.1)
[2019-10-04 06:16] LABS: ANION GAP 11.6 mmol/L (8-16); CALCIUM 8.7 mg/dL (8.4-10.2); POTASSIUM 3.6 mmol/L (3.5-5.1)
[2019-10-04] MEDS: CEFTRIAXONE SOD 1 GM/NS 50 ML 50 ML IV SCH (08:35)
[2019-10-04] MEDS: METOPROLOL TARTRATE 50 MG TAB PO SCH (08:35)
[2019-10-04 09:00] VITALS: BP 123/69
[2019-10-04] MEDS: SODIUM CHLORIDE 0.9% 1000ML 1,000 ML IV SCH (09:45)
--- NOTE | 2019-10-04 09:58 | NUR ---
RECEIVED REPORT FROM DIANA ROBLES RN.
[2019-10-04 10:11] VITALS: BP 123/69
[2019-10-04 11:48] VITALS: BP 122/86
--- NOTE | 2019-10-04 15:30 | NUR ---
PATIENT COMPLAINT OF PAIN TO IV SITE. IV REMOVED. CATHETER TIP INTACT ON REMOVAL AND PRESSURE DRESSING APPLIED.
[2019-10-04] MEDS: MORPHINE SULFATE INJ 4 MG/ML INJ 1ML IV PRN (15:31)
[2019-10-04] MEDS ORDERED: METOPROLOL TART50 MG PO (16:30)
[2019-10-04] MEDS ORDERED: KEFLEX500 MG PO (16:30)
--- NOTE | 2019-10-04 16:34 | NUR ---
D/C summary Principal dx: Left ureterolithiasis- IVF; urology consult Right hydroureteronephrosis- as above UTI- IV ceftriaxone Right nephrolithiasis- as above Hypokalemia- replace and recheck Secondary Dx: Obesity- screen for DM negative BMI 34 Prop: scd DIspo; urology consultation; 5-30 stent placed left for ureterolithiasis; check labs; d/c home f/u pcp 2-3 days and in 1-2 weeks stable d/c>35mins Reyes Forbes MD, PhD.
[2019-10-04] MEDS ORDERED: TYLENOL WITH C1 EACH PO (16:43)
[2019-10-04] MEDS ORDERED: ZOFRAN4 MG PO (16:43)
[2019-10-04 16:45] VITALS: BP 151/90
--- NOTE | 2019-10-04 17:00 | NUR ---
PATIENT DISCHARGED FROM FACILITY. PATIENT GATHERED ALL PERSONAL BELONGINGS, DISCHARGE INSTRUCTIONS AND FOLLOW UP INFORMATION. PATIENT LEFT UNIT IN WHEELCHAIR AND WENT HOME VIA PRIVATE AUTO. NO S/S OF DISTRESS LEAVING FACILITY.
== END 2019-10-04 17:00 | disposition home or self-care (01) | DRG 661 ==
LOC: ER 09:40 → ERHOLD 11:40 → MED/SURG 15:05
PROVIDERS: ADMIT Internal Medicine; ATTEND Internal Medicine
PROC: BT141ZZ Fluoroscopy of Kidneys, Ureters and Bladder using Low Osmolar Contrast (ICD-10-PCS; 2019-10-02)
PROC: 0T778DZ Dilation of Left Ureter with Intraluminal Device, Via Natural or Artificial Opening Endoscopic (ICD-10-PCS; principal; 2019-10-02 06:30)
DX: N13.2 Hydronephrosis with renal and ureteral calculous obstruction (principal); N39.0 Urinary tract infection, site not specified; R31.9 Hematuria, unspecified; I10 Essential (primary) hypertension; E27.9 Disorder of adrenal gland, unspecified; R31.29 Other microscopic hematuria; E66.9 Obesity, unspecified; Z68.34 Body mass index [BMI] 34.0-34.9, adult; E87.6 Hypokalemia
CPT/HCPCS: 36415; 74176; 74420; 80048; 80053; 80061; 81001; 83036; 83735; 85025; 85610; 85730; 87086; 87635; 88300; 93005; 99284; C1758; C1769; C2617; J0360; J0696; J1885; J2270; J2405; J3480; J7030

== ENCOUNTER 2019-10-13 19:10 | Observation (INO) | payer OTHER ==
[~2019-10-13] VITALS: Ht 167.6 cm; Wt 97.7 kg
[~2019-10-13 19:10] MED LIST: KEFLEX500 MG PO; METOPROLOL TART50 MG PO; TYLENOL WITH C1 EACH PO; ZOFRAN4 MG PO
--- OUTSIDE RECORDS SUMMARY | 2019-10-13 19:13 | XMS REPORT | Clinical Summary ---
Author Author [facility] Organization [facility] Address Unknown Phone Unavailable Care Team Providers Care Ap Operator Name Role Phone Asked, No Pcp PCP [...] INFLUENZA VACCINE 12/05/2019 Results Not on fileafter 10/12/2018 Advance Directives For more information, please contact: [phone] Patient Electroplater Automatic Explanation Type Date Recorded Advance Directives, Living Will and Medical Power of Recreational Leader
--- OUTSIDE RECORDS SUMMARY | 2019-10-13 19:14 | XMS REPORT | Continuity of Care Document ---
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 RUN DATE: 11/10/18 [facility] PAGE 2 RUN TIME: 630 Specimen Inquiry RUN USER: INTERFACE SPEC #: [id number] PATIENT: ERNESTINA PERRY #[id number] (Continued) MICROSCOPIC DESCRIPTION Gastric antral biopsies show acute and chronic inflammation in the lamina propria. No ulceration is p resent. Giemsa stain is positive for Helicobacter-like organisms with an appr opriately stained control. cds/wpd 11/07/18 Signed Jean Correa 11/07/18 1652 END OF RE PORT - CT ABD PELVIS W/UBWR0848-28-73 15:34:00 Patient Name: ERNESTINA PERRY Unit No: [id number] EXAMS: CPT CODE: [id number] CT ABD PELVIS W/CONT 66809 Exam: CT scan of the abdomen and [...] st ructures demonstrated no significant abnormality. [facility] NAME: ERNESTINA PERRY Radiology Department PHYS: Doug Wise MD [address] : 1975 AGE: 43 SEX: F [place], [place] [address] LOC: F.2660 A PHONE #: [phone] EXAM D ATE: 11/03/2018 STATUS: ADM IN FAX #: [phone] RAD NO: Page 1 Signed Report 1 Patient Name: ERNESTINA PERRY Unit No: [id number] EX AMS: CPT CODE: [id number] CT ABD PELVIS W/CONT 75856 <Continued> IMPRESSION: 1. Hepatic steatosis. 2. Left adrenal adenoma. 3. Post cholecystectomy and hysterectomy. 4. Small fat-containing inguinal hernia on the left. 5. Right ovarian cyst and involuting left ovarian cyst. at 1534 Reported and signed by: Lizy Perea MD CC: Technologist: Charli M. Yanique, RT, CT CTDI: 16.26 DLP: 1865.03 Trnscrbd D/ (6068) [facility] NAME: ERNESTINA PERRY Radio logy Department PHYS: Doug Wise MD [address] : 1975 AGE: 43 SEX: F [place], [place] [address] LOC: F.2660 A PHONE #: [phone] EXAM DATE: 11/03/2018 STATUS: ADM IN FAX #: [phone] RAD NO: Page 2 Signed Report 1 Patient Name: ERNESTINA PERRY Unit No: [id number] EXAMS: CPT COD E: [id number] CT ABD PELVIS W/CONT 64719 <Continued> Orig Print D/T: S: 11/03/2018 (3246) [facility] NAME: ERNESTINA PERRY Radiology Department PHYS: Doug Wise MD [address] : 1975 AGE: 43 SEX: F [place], [place] [address] LOC: F.5650 A PHONE #: [phone] EXAM DATE: 11/03/2018 STATUS: ADM IN FAX #: [phone] RAD NO: Page 3 Signed Report 1 - US TRANSVAGINAL W/QFWVCP2339-02-97 14:44:00 Patient Name: ERNESTINA PERRY Unit No: [id number] EXAMS: CPT CODE: [id number] US TRANSVAGINAL W/PELVIS 46692 CLINICAL HISTORY: Left lower quadrant pain. COMPARISON: [...] CC: Technologist: Christopher Garcia RDMS, T Probe: [id number] Trnscrbd D/ (9767) t.MIRKevinYOS Orig Print D/T: S: 11/03/2018 (2966) [facility] N CHENG: ERNESTINA PERRY Radiology Department PHYS: Doug Wise MD [address] : 1974 AGE: 43 SEX: F [place] [address] LOC: F.2660 A PHONE #: [phone] EXAM DATE: 11/03/2018 STATUS: ADM IN FAX #: [phone] RAD NO: Page 1 Signed Report Patient Name: ERNESTINA ROSE Unit No: [id number] EXAMS: CPT CODE: [id number] US TRANSVAGINAL W/[place] [address] <Continued> [facility] NAME: ERNESTINA PERRY Radiology Department PHYS: Doug Wise MD [address] : 1975 AGE: 43 SEX: F [place] [address] LOC: F.2660 A PHONE #: [phone] EXAM DATE: 11/03/2018 STATUS: ADM IN FAX #: [phone] RAD NO: Page 2 Signed Report - US PELVIS OMBBKAQO3094-67-72 14:44:00 Patient Name: VICKYERNESTINA Unit No: [id number] EXAMS: CPT CODE: [id number] US PELVIS COMPLETE 88680 CLINICAL HISTORY: Left lower quadrant pain. COMPARISON: [...] Christopher Garcia RDMS, RVT Probe: Trnscrbd D/ (9824) t.SDR.YOS Orig Print D/T: S: 11/03/2018 (9898) [facility] NAME: ERNESTINA PERRY Radiology Department PHYS: Doug Wise MD [address] : 1975 AGE: 43 SEX: F [place] [address] LOC: F.2660 A PHONE #: [phone] EXAM DATE: 11/03/2018 STATUS: ADM IN FAX #: [phone] RAD NO: Page 1 Signed Report Patient Name: ERNESTINA PERRY Unit No: [id number] EXAMS: CPT CODE: [id number] US PELVIS COMPLETE 92995 < Continued> [facility] NAME: ERNESTINA PERRY Radiology Department PHYS: Doug Wise MD [address] : 1975 AGE: 43 SEX: F [place] [address] LOC: F.2660 A PHONE #: [phone] EXAM DATE: 11/03/2018 STATUS: ADM IN FAX #: [phone] RAD NO: Page 2 Signed Report COMPREHENSIVE METABOLIC [id number] 13:55:00* Test Item Value Reference Range Interpretation [...] code = ALKP) 85 units/L 46-116 N YCACFOQ4102-82-36 13:55:00* Test Item Value Reference Range Interpretation Comments AMYLASE (test code = JAVID) 37 units/L 30-110 N BLLUGM2245-14-91 13:55:00* Test Item Value Reference Range Interpretation Comments LIPASE (test code = LIP) 110 units/L 73-393 N URINALYSIS LXFIRNEB9685-57-09 13:25:00* Test Item Value Reference Range Interpretation [...] NONE SEEN URINE SAMPLE: CLEAN CATCHCBC W/AUTO BGMB3403-73-78 13:18:00* Test Item Value Reference Range Interpretation [...] code = PLTMR) NORMAL MERRITT L CHEM QNZGC2240-64-40 22:51:0028[facility] ZEIKJ9533-20-26 22:51:003.5 [facility] IYTLS0429-59-10 22:51:0069[facility]annCHEM PANEL 2017-10-26 22:51:47624Czilaonu HermannCHEM DBDCM6083-80-78 22:51:0096[facility]ann[facility] IGXGS4365-76-56 22:51:000.6[facility]ann[facility] FYOCQ4662-79-43 22:51:0096[facility]ann[facility] GHKHJ2876-75-25 22:51:009[facility]annCHE[facility] FFKWJ7741-65-42 22:51:003.[facility]annCHE[facility] DKZSV8158-42-36 22:51:000.70 [facility] YXPKV6447-27-40 22:51:29642Nuygnvhj HermannCHEM PANEL 2017-10-26 22:51:98860Wxmkctho HermannCHEM ZWERO9571-05-78 22:51:007.[facility]annCHEM STXUB2077-62-58 22:51:0025[facility]annCHEM ELUVS7595-15-72 22:51:009.5[facility]annCHE[facility] NOPBE9879-64-23 22:51:004.1[facility]ann[facility] ICKJX4560-04-44 22:51:00* Test Item Value Reference Range Interpretation Comments A/G Ratio (test code = A/G Ratio) 0.9 1 0.7-1.6 [facility] VRGYG0268-60-91 22:51:0012.6[facility]annCHEM PANEL 2017-10-26 22:51:00* Test Item Value Reference Range Interpretation Comments B/C Ratio (test code = B/C Ratio) 13 1 6-25 [facility]TMSJPXLWNVZZD4286-87-66 22:51:00Negative *NA*(10/26/17 5:51 PM) [facility] FxvdeygIOHABYTUPS0360-53-71 22:51:000.7[facility]annHEMATOLOGY 2017-10-26 22:51:002.0[facility] KrmxcqeFLDEIWYRCM4171-50-46 22:51:008.2[facility] LvkzlznSMWMQATWAG3347-37-41 22:51:000.6[facility] CyrmlyrHBPXNTFPPO6369-23-11 22:51:006.2[facility] OehkzfeCDATLFAFRZ9730-08-66 22:51:001.0[facility] LRKFQWJVOP5880-36-85 22:51:000.1[facility] PuelxqxHFANZROGFN5192-11-87 22:51:000.1 [facility] FiraucdGSTNHIRXWJ5675-41-04 22:51:0018.1[facility]annHEMATOLOGY 2017-10-26 22:51:0074.1[facility] LkjqcorRKTVIGNISA4337-91-89 22:51:009.4[facility] XqfkqctDCVLMUSTPU5594-52-84 22:51:58810Uqpdqsxu EiwgnvnUJLHFTIWMW4423-97-19 22:51:0032.5[facility] FlwzoiqDQNMAMRDHO0557-35-02 22:51:0081.6[facility] ADUZJPBHLB9447-96-36 22:51:0041.1[facility] NjcpgmzETFXJPVUVM2923-61-16 22:51:00* Test Item Value Reference Range Interpretation Comments MCH (test code = MCH) 26.5 pg 27.0-31.0 [facility] WmsxazlWSOIVFMQCY6500-02-23 22:51:0021.4[facility]annHEMATOLOGY 2017-10-26 22:51:005.04[facility] SfstvkcCYHXCSHUZX0557-61-55 22:51:0011.1[facility] DybypldKRZBHNQXHH2173-07-67 22:51:0013.4[facility] STOOL 2017-10-26 22:51:00Clear (10/26/17 5:51 PM)[facility] ST[facility]OL 2017-10-26 22:51:00Yellow *NA*(10/26/17 5:51 PM)[facility] 2017-10-26 22:51:00* Test Item Value Reference Range Interpretation Comments UA pH (test code = UA pH) 5.0 1 5.0-8.0 [facility] CYRIV7057-24-94 22:51:00* Test Item Value Reference Range Interpretation Comments UA Spec Grav (test code = UA Spec Grav) 1.017 1 [facility] YQNDT6234-33-32 22:51:00Negative *NA*(10/26/17 5:51 PM) [facility] WNFNO5657-25-75 22:51:00Large *ABN*(10/26/17 5:51 PM) [facility] EENGN2308-10-87 22:51:00>182[facility] YXBSD6532-42-02 22:51:00Negative (10/26/17 5:51 PM)[facility] MUXGV1965-45-17 22:51:001[facility] JZUEC3123-70-38 22:51:00 Negative (10/26/17 5:51 PM)[facility]annCHEM WJEAG7046-08-07 14:34:47453 [facility] YHTGI6401-84-25 14:34:55563Unfegatm HermannCHEM PANEL 2017-09-18 14:34:0080[facility]annCHE[facility] IDLLW6368-64-20 14:34:000.4[facility]annCHE[facility] MLUGW0491-68-92 14:34:0032[facility]annCHE[facility] BEHLU3517-69-73 14:34:0049[facility]CHE[facility] CYTUM7601-98-86 14:34:006.9[facility]annCHE[facility] SJXQX1178-82-13 14:34:003.2[facility]CHE[facility] LGGSF3336-68-12 14:34:82089 [facility] QVCVO5681-46-09 14:34:003.8[facility]annCHEM PANEL 2017-09-18 14:34:008.9[facility]annCHE[facility] SDZPN2860-10-93 14:34:0027[facility]annCHE[facility] RDVTR2445-63-90 14:34:86592Qrcstdbm HermannCHEM WRPIY6782-32-16 14:34:26739Eqrwcqbg [facility]annCHEM KRPTE4725-13-90 14:34:000.57[facility]annCHE[facility] DXBQV9833-63-96 14:34:0011[facility]annCHE[facility] PXJLY8571-36-57 14:34:00* Test Item Value Reference Range Interpretation Comments A/G Ratio (test code = A/G Ratio) 0.9 1 0.7-1.6 [facility] JHBOI2867-66-77 14:34:003.7[facility]annCHEM PANEL 2017-09-18 14:34:0012.8[facility]annCHE[facility] OJVQX0434-39-33 14:34:00* Test Item Value Reference Range Interpretation Comments B/C Ratio (test code = B/C Ratio) 19 1 6-25 [facility] PzthvaxMDVZJPZTFCDQV7261-94-55 14:34:00Negative *NA*(09/18/17 9:34 AM) [facility] GbzkbfwVMACBEHORK9633-76-40 14:34:0077.5[facility]annHEMATOLOGY 2017-09-18 14:34:00* Test Item Value Reference Range Interpretation Comments MCH (test code = MCH) 24.5 pg 27.0-31.0 [facility] RtntglxMDGKQCJKDK7060-96-35 14:34:0010.9[facility] HermannHEMATOLOGY 2017-09-18 14:34:0034.5[facility] AvzhphfMCYKUHQIYS2323-81-43 14:34:004.45[facility] TpneltzUIVCUMRTGZ0932-91-50 14:34:006.9[facility] VudayncFFOQVXAULP2106-10-05 14:34:33390Qjvxcfro YicrkydQLMZVWDCER2454-05-56 14:34:009.7[facility] UECBRRGDKZ2993-60-94 14:34:0031.7[facility] KuzvhhpDOIQZIBXNW4316-51-73 14:34:00 15.7[facility] PynyqwrESRFICNRMI6377-17-31 14:34:0031.1[facility]annHEMATOLOGY 2017-09-18 14:34:006.5[facility] CwpozdlPZGQWTHJZQ2268-56-19 14:34:003.9[facility] KpgzqfvFOAGNRRIAR5986-78-72 14:34:001.4[facility] KbkudueCBGJJECMSA0753-08-92 14:34:0056.4[facility] QqfdjfuUIKWIZQDMK5656-07-40 14:34:004.6[facility] PYONSMFUMN8290-23-56 14:34:001+ *ABN*(09/18/17 9:34 AM)[facility]annHEMATOLOGY 2017-09-18 14:34:000.4[facility] RpynrxhDONQDJHPEP7541-57-94 14:34:002.1[facility] UdnhwksUQQJOZFTQS1639-82-96 14:34:000.1[facility] DysdbwmMHHUWEBWWK3332-63-02 14:34:000.3[facility] AND DQLZN5915-11-33 14:34:0072[facility]INE AND OMDUW6088-28-02 14:34:003[facility] SUMNG4431-32-68 14:34:00Negative (09/18/17 9:34 AM)[facility] ASTEE5143-19-51 14:34:00Negative (09/18/17 9:34 AM)[facility] ZBZJH1812-29-37 14:34:00Large *ABN*(09/18/17 9:34 AM)[facility] QFXLI1088-31-45 14:34:00Negative *NA*(09/18/17 9:34 AM)[facility] USZLJ8402-84-52 14:34:00* Test Item Value Reference Range Interpretation Comments UA pH (test code = UA pH) 5.0 1 5.0-8.0 [facility] BVXGY5868-99-22 14:34:00* Test Item Value Reference Range Interpretation Comments UA Spec Grav (test code = UA Spec Grav) 1.021 1 [facility] JFWBU1111-97-24 14:34:00Clear (09/18/17 9:34 AM) [facility] BZRQF6153-96-25 14:34:00Yellow *NA*(09/18/17 9:34 AM) [facility] YJCID0081-10-68 03:46:004[facility] LKBAT0246-83-70 03:46:006[facility] SGSQB5128-79-76 03:46:00 Negative (03/18/17 9:46 PM)[facility] PUDNE2258-26-51 03:46:00 Yellow *NA*(03/18/17 9:46 PM)[facility] DIUEA6308-01-61 03:46:00 1.026[facility] JKIRZ2363-04-04 03:46:00Clear (03/18/17 9:46 PM) [facility] GBJYL7693-70-10 03:46:005.0[facility] MGBEU4748-50-41 03:46:00Negative *NA*(03/18/17 9:46 PM)[facility] KMHLF7904-51-34 03:46:00Negative (03/18/17 9:46 PM)[facility] BPRQZ7144-63-39 03:46:00Small *ABN*(03/18/17 9:46 PM)[facility]annCHEM PANEL 2017-03-19 03:34:27714Stoaclel HermannCHEM XQNTO3983-02-47 03:34:0084[facility]annCHEM QQUXT4611-66-26 03:34:000.8[facility]annCHEM XQPZV7660-98-09 03:34:07999Dotnkxiw HermannCHEM IKRNP9028-82-15 03:34:0010[facility]annCHEM HUTQP2353-83-04 03:34:0096[facility]annCHEM ZAMXX7686-55-14 03:34:90938 [facility]CHE[facility] QTASZ0002-77-73 03:34:80753Tjbgmrbd HermannCHEM PANEL 2017-03-19 03:34:0023[facility]annCHEM RSJGE1645-97-22 03:34:0024[facility]annCHE[facility] CYMTX5826-46-24 03:34:003.2[facility]annCHEM QIGVX7243-77-42 03:34:009.3[facility]annCHE[facility] ECGFS5772-95-15 03:34:000.86[facility]annCHEM VIFZK4977-47-00 03:34:0054[facility]CHE[facility] AVQOB8000-81-28 03:34:003.1 [facility]CHE[facility] JHQRM6470-37-57 03:34:007.5[facility]annCHEM PANEL 2017-03-19 03:34:000.7[facility]annCHEM OPXIO1244-33-73 03:34:0013.2[facility]annCHEM KKLVT0246-55-65 03:34:0012[facility]annCHEM WIWEN8009-77-54 03:34:004.4[facility] FonozfyNYAWNKPQYONDY6874-01-35 03:34:00Negative *NA*(03/18/17 9:34 PM)[facility] XhhrderTYQWKAMCOF5715-41-39 03:34:005.9[facility] KpkcaulRFNTAXCJSL8120-80-66 03:34:000.5[facility] FnelpdyEXFLZDSQZU0308-71-36 03:34:001.6[facility] AnxfhzgDRMJSGFVJY2608-84-57 03:34:0021.4[facility] SYBTFUVHRW3934-61-23 03:34:0069.8[facility] XdtmhhcVHHHDVZXTV3415-46-61 03:34:00 6.7[facility] MiizjigSMMZJPISHE1698-60-27 03:34:000.6[facility]annHEMATOLOGY 2017-03-19 03:34:001.8[facility] NztnzpmKLWZLMIIXL2149-37-36 03:34:000.1[facility] GamdgwtQIOUXJERYM8934-95-59 03:34:0015.6[facility] FvsohzcESKQRIBCOE2384-64-77 03:34:0034.1[facility] NcukvbaHLQUMZVXAC0308-67-89 03:34:00* Test Item Value Reference Range Interpretation Comments MCH (test code = MCH) 28.8 pg 27.0-31.0 [facility] YaqknljYRUXBEYKTJ3343-10-46 03:34:0084.5[facility]annHEMATOLOGY 2017-03-19 03:34:79080Gfnhvspq YvrksutGNNAQCDIQH7007-27-49 03:34:0038.3[facility] WoxfuuaLLVCGQIVDU9447-96-57 03:34:0013.0[facility] VshnvagKKPCJNGPXS6542-78-07 03:34:004.53[facility] JqfplvyCZLNNWDIWR1185-33-91 03:34:009.3[facility] LUCOQGVTEQ4282-87-74 03:34:008.5[facility] HermannCARDIAC LBNFDLZ5929-21-85 00:04:001.2[facility] HermannCARDIAC SFNFWNR4255-19-80 00:04:001.2[facility] CARDIAC NIXYNUE4243-23-30 00:04:000.03[facility] HermannCARDIAC FOMSAJE6608-97-64 00:04:98021Mjrkpmyn HermannCHEM EAFJZ6778-42-29 00:04:11491Fvgkxgyo HermannCHEM EGPXD2937-37-78 00:04:0091[facility]annCHEM TFWNP5301-53-69 00:04:003.6 [facility]annCHEM APUMM2542-88-03 00:04:009.4[facility]annCHEM PANEL 2017-03-14 00:04:0089[facility]annCHEM FPUXU7224-09-68 00:04:0024[facility]annCHEM DSLHL4902-74-10 00:04:003.7[facility]annCHEM ODVAM0744-61-64 00:04:21563Dmbdzutq HermannCHEM KAHHY7693-98-28 00:04:71222Dsqisths HermannCHEM WDIRG1450-92-27 00:04:41180Yzugvgud [facility]annCHEM XMFSB1355-73-84 00:04:007.3 [facility]CHE[facility] MMSSR9136-74-66 00:04:0010[facility]annCHEM PANEL 2017-03-14 00:04:0012[facility]annCHEM PHYTH6888-04-84 00:04:003.7[facility]annCHEM XUBAZ6084-67-71 00:04:000.9[facility]annCHEM CBTJX4024-45-71 00:04:0010.7[facility]annCHEM IKZBD8884-81-84 00:04:001.0[facility]annCHEM ENUWJ9382-32-61 00:04:43365Xnppxkjc HermannCHEM UXLFZ5760-02-59 00:04:0057 [facility]annCHE[facility] WYKUM8399-10-25 00:04:000.80[facility] HermannHEMATOLOGY 2017-03-14 00:04:001.5[facility] HzqzjxuGFOBRMFLRB7916-73-36 00:04:000.1[facility] UthneeaGQLCZDNTRH4585-49-39 00:04:000.1[facility] OjmsohiJADYGHRSUM7226-53-88 00:04:000.6[facility] BamcnmwBDNHXYBOLR5089-84-58 00:04:0014.6[facility] FLQINHVQBR1763-43-96 00:04:0077.8[facility] ExmsfesSMJPUCEQER1208-42-71 00:04:00 8.0[facility] AfrieaoLIXQYPQTJE6237-13-15 00:04:001.0[facility] HermannHEMATOLOGY 2017-03-14 00:04:001.0[facility] MwmkckwJHVHBMJMQO3054-65-01 00:04:005.6[facility] JjxekdpCWIEJQWPAZ1625-45-53 00:04:009.6[facility] OsobovmYSZHCVPFBU1191-05-20 00:04:92230Rrhkxvhg NkjtnelXXXRQZDOWG9899-45-40 00:04:0016.1[facility] NKYQLZFYRX7817-18-39 00:04:0033.4[facility] HgiwasaYIRLIASDND1963-27-88 00:04:00 86.9[facility] YpfjnruKYNAULFMUV9282-85-66 00:04:00* Test Item Value Reference Range Interpretation Comments MCH (test code = MCH) 29.0 pg 27.0-31.0 [facility] WszdpxlLIZZNPYXCZ9902-75-81 00:04:0041.1[facility]annHEMATOLOGY 2017-03-14 00:04:004.74[facility] TbqlbxaZVUFONDJRP5936-22-02 00:04:0013.7[facility] CqsfuvwPRPDYKVQEE1968-32-76 00:04:0010.3[facility] STOOL 2017-03-14 00:04:00Large *ABN*(03/13/17 6:04 PM)[facility] STOOL 2017-03-14 00:04:00Negative (03/13/17 6:04 PM)[facility] ST[facility]OL 2017-03-14 00:04:00>182[facility] IJWXA7049-25-33 00:04:0015 [facility] KLKBE9227-64-49 00:04:006.0[facility] JJKAV5067-51-80 00:04:00Negative *NA*(03/13/17 6:04 PM)[facility] UFABH2012-76-46 00:04:00Negative (03/13/17 6:04 PM)[facility] ILHGU8396-00-09 00:04:001.015[facility] BRUHP3108-30-40 00:04:00 Slight *ABN*(03/13/17 6:04 PM)[facility] EDAPT1348-76-73 00:04:00 Yellow *NA*(03/13/17 6:04 PM)[facility] FPQP5451-61-61 00:04:00 Negative (03/13/17 6:04 PM)[facility] Kris
--- OUTSIDE RECORDS SUMMARY | 2019-10-13 19:14 | XMS REPORT | Continuity of Care Document ---
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 Negative (03/13/17 6:04 PM) Negative 03/14/2017 [facility] URINE AND STOOL UA Spec Grav 1.015 <=1.030 03/14/2017 [facility] URINE AND STOOL UA Turbidity Slight *ABN* (03/13/17 6:04 PM) Clear 03/14/2017 [facility] URINE AND STOOL UA Color Yellow *NA* (03/13/17 6:04 PM) Yellow 03/14/2017 [facility] URINE CHEM U Preg Negat elma (03/13/17 6:04 PM) Negative 03/14/2017 [facility] Pathology Reports No Data Provided for [...] fabiola. Jose Layne MD On 06/08/2019 19:37:02; [id number] 06/08/2019 [facility] Abdomen/Pelvis w IV contrast CT Clinical [...] to patient size -Use of iterative reconstruction [employer] CT Radiation Dose DLP 808 mGy-cm FINDINGS: [...] contrast for further evaluation. SL: [id number] 12/17/2018 [facility] Spine cervical wo contrast CT Procedure: CT [...] to patient size -Use of iterative reconstruction technevolso ue CT Radiation Dose DLP 896 mGy-cm [...] or subluxations of the c ervical spine. SL:[id number] 12/17/2018 [facility] Brain wo contrast CT CT head w [...] No acute intracranial abnormality. SL: [id number] 12/17/2018 [facility] Pelvis w Transvag and Pelvis Doppler US Patient Name: ERNESTINA PERRY : 1975; Age: 42 years y/o Female MR: [id number] Study: Pelvis w Transvag and Pelvis Doppler [...] cyst is presen t. SL: [id number] 10/26/2017 [facility] Chest 2 views DX Study: Chest [...] abnormalities. IMPRESSION: No acute intrathoracic abnormalities. SL: [id number] 09/18/2017 [facility] Renal Stone CT CT SCAN OF [...] nodule is present likely an adenoma. SL: [id number] 09/18/2017 [facility] Renal Stone CT Clinical Indica tion: [...] Incidentally noted left adrenal adeno ma. SL: [id number] 03/18/2017 [facility] Renal Stone CT EXAM: CT renal [...] appendix. No free fluid. 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 COMPARISON: None Available. TECHNIQUE: A single AP view of the chest was obtained. FINDINGS: Mild elevation of the right hemidiaphragm is noted. No focal consolidation or pneumothorax is identified. The cardiomediastinal silhouette is within normal limits. The costophrenic recesses are sharp and without effusion. No acute osseous abnormality is noted. IMPRESSION: No acute cardiopulmonary abnormality. SL: [id number] 03/13/2017 [facility] Consultation Notes No Data Provided for This Section Discharge Summaries No Data Provided for This Section History and Physicals No Data Provided for This Section Vital Signs Vital Sign Value Date Comments Source Temperature Oral (F) 98.9 F 06/09/2019 [facility] Heart Rate 72 06/09/2019 [facility] Respitory Rate 16 06/09/2019 [facility] Systolic (mm Hg) 136 06/09/2019 [facility] Diastolic (mm Hg) 82 06/09/2019 [facility] Systolic (mm Hg) 142 06/08/2019 [facility] Diastolic (mm Hg) 99 06/08/2019 [facility] Heart Rate 66 06/08/2019 [facility] Respitory Rate 20 06/08/2019 [facility] Temperature Oral (F) 98 F 06/08/2019 [facility] Weight 118.182 06/08/2019 [facility] Heart Rate 88 12/18/2018 [facility] Respitory Rate 16 12/18/2018 [facility] Systolic (mm Hg) 121 12/18/2018 [facility] Diastolic (mm Hg) 82 12/18/2018 [facility] Temperature Oral (F) 97.9 F 12/18/2018 [facility] Heart Rate 79 12/18/2018 [facility] Respitory Rate 16 12/18/2018 [facility] Systolic (mm Hg) 136 12/18/2018 [facility] Diastolic (mm Hg) 91 12/18/2018 [facility] Systolic (mm Hg) 143 12/18/2018 [facility] Diastolic (mm Hg) 83 12/18/2018 [facility] Respitory Rate 17 12/18/2018 [facility] Heart Rate 90 12/18/2018 [facility] Temperature Oral (F) 98.2 F 12/18/2018 [facility] Temperature Oral (F) 98.5 F 12/17/2018 [facility] Weight 97 0 12/17/2018 [facility] Respitory Rate 17 10/27/2017 [facility] Heart Rate 86 10/27/2017 [facility] Systolic (mm Hg) 113 10/27/2017 [facility] Diastolic (mm Hg) 82 10/27/2017 [facility] Temperature Oral (F) 98.5 F 10/27/2017 [facility] BMI Calculated 32.35 10/26/2017 [facility] Temperature Oral (F) 98.5 F 10/26/2017 [facility] Height 167.64 cm 10/26/2017 [facility] Weight 90.909 10/26/2017 [facility] Respitory Rate 17 10/26/2017 [facility] Systolic (mm Hg) 123 10/26/2017 [facility] Diastolic (mm Hg) 59 10/26/2017 [facility] Heart Rate 113 10/26/2017 [facility] Temperature Oral (F) 98.1 F 09/18/2017 [facility] Heart Rate 71 09/18/2017 [facility] Systolic (mm Hg) 128 09/18/2017 [facility] Diastolic (mm Hg) 75 09/18/2017 [facility] Respitory Rate 19 09/18/2017 [facility] Respitory Rate 16 09/18/2017 [facility] Heart Rate 79 09/18/2017 [facility] Systolic (mm Hg) 135 09/18/2017 [facility] Diastolic (mm Hg) 78 09/18/2017 [facility] Weight 100 09/18/2017 [facility] BMI Calculated 35.58 09/18/2017 [facility] Heart Rate 72 09/18/2017 [facility] Respitory Rate 18 09/18/2017 [facility] Height 167.64 cm 09/18/2017 [facility] Systolic (mm Hg) 144 09/18/2017 [facility] Diastolic (mm Hg) 92 09/18/2017 [facility] Temperature Oral (F) 98.3 F 09/18/2017 [facility] Systolic (mm Hg) 143 03/19/2017 [facility] Diastolic (mm Hg) 85 03/19/2017 [facility] Respitory Rate 18 03/19/2017 [facility] Heart Rate 70 03/19/2017 [facility] Temperature Oral (F) 98.1 F 03/19/2017 [facility] Temperature Oral (F) 98.1 F 03/19/2017 [facility] Weight 90.909 03/19/2017 [facility] Systolic (mm Hg) 146 03/19/2017 [facility] Diastolic (mm Hg) 105 03/19/2017 [facility] Heart Rate 71 03/19/2017 [facility] Respitory Rate 18 03/19/2017 [facility] Systolic (mm Hg) 142 03/14/2017 [facility] Diastolic (mm Hg) 88 03/14/2017 [facility] Temperature Oral (F) 98.1 F 03/14/2017 [facility] Heart Rate 84 03/14/2017 [facility] Respitory Rate 14 03/14/2017 [facility] Weight 90.909 03/13/2017 [facility] BMI Calculated 32.35 03/13/2017 [facility] Systolic (mm Hg) 146 03/13/2017 [facility] Diastolic (mm Hg) 90 03/13/2017 [facility] Height 167.64 cm 03/13/2017 [facility] Temperature Oral (F) 98.4 F 03/13/2017 [facility] Respitory Rate 20 03/13/2017 [facility] Heart Rate 80 03/13/2017 [facility] Encounters Location Location Details Encounter Type Encounter Number Reason For Visit Attending Provider ADM Date DC Date Status Source [facility] Emergency [id number] Ernst Jaswinder 03/13/2017 03/14/2017 [facility] Emergency [id number] Emily Alcanter 03/19/2017 03/19/2017 [facility] Emergency [id number] Emily Alcanter 09/18/2017 09/18/2017 [facility] Emergency [id number] Jose Luis Barbie 10/26/2017 10/27/2017 [facility] Emergency [id number] Alonso Hwang 12/17/2018 12/18/2018 [facility] Emergency [id number] Saman Vásquez 06/08/2019 06/09/2019 [facility] Procedures No Data Provided for This Section Assessment and Plan No Data Provided for This Section Plan of Care No Data Provided for This Section Social History Social History Date Source Social History TypeResponse Smoking Status Never smoker; Exposure to Tobacco Smoke None; Cigarette Smoking Last 365 Days No; Reg Smoking Cessation Counseling No entered on: 06/08/19 06/08/2019 [facility] Social History TypeResponse Smoking Status Never smoker; Exposure to Tobacco Smoke None; Cigarette Smoking Last 365 Days No; Reg Smoking Cessation Counseling No entered on: 12/17/18 12/18/2018 [facility] Family History No Data Provided for This Section Advance Directives No Data Provided for This Section Functional Status No Data Provided for This Section
--- NOTE | 2019-10-13 19:25 | Emergency Department Note ---
History of Present Illnes History of Present Illness Chief Complaint: Genitourinary History of Present Illness This is a 44 year old female with sudden onset of L flank, LLQ pain . Historian: Patient Onset (how long ago): day(s) (1) Radiation: Reports back Severity: moderate Onset quality: sudden (1) Duration (how long): hour(s) (1) Timing of current episode: constant Progression: worsening Relieving factors: rest Exacerbating factors: movement Associated symptoms: Reports nausea/vomiting Treatments prior to arrival: none Past Medical/Family History Physician Review I have reviewed the patient's past medical and family history. Any updates have been documented here. Past Medical History Recent Fever: No Clinical Suspicion of Infectio: No Past Medical History: Cancer Past Surgical History: Cholecysctectomy, Other Surgery: tubes removed, surgery pinch nerve lower abd incision,gallbladder removed midlline incision, 1 and ceevical ca; frozen, 2 epotic , miscarriage at 6 months Social History Smoking Cessation: Never Smoker Alcohol Use: None Any Illegal Drug Use: No Other Last Tetanus: utd Review of Systems Review of Systems Constitutional: Reports chills EENTM: Reports no symptoms Cardiovascular: Reports no symptoms Respiratory: Reports no symptoms Gastrointestinal: Reports nausea Genitourinary: Reports dysuria, Reports frequency, Reports hematuria, Reports pain Musculoskeletal: Reports no symptoms Integumentary: Reports no symptoms Neurological: Reports no symptoms Psychological: Reports no symptoms Endocrine: Reports no symptoms Hematological/Lymphatic: Reports no symptoms Review of other systems All other systems reviewed and negative. Physical Exam Related Data Allergies: Coded Allergies: No Known Allergies (Unverified , 10/01/19) Triage Vital Signs Vital Signs Date Time Temp Pulse Resp B/P (MAP) Pulse Ox O2 Delivery O2 Flow Rate FiO2 10/13/19 19:23 98.7 78 20 140/74 98 10/14/19 04:00 Room Air Vital signs reviewed: Yes Physical Exam CONSTITUTIONAL Constitutional: Reports well-developed, Reports well-nourished HENT HENT: Reports normocephalic, Reports atraumatic, Reports oropharynx clear/moist, Reports nose normal HENT L/R: Reports left ext ear normal, Reports right ext ear normal EYES Eyes: Reports PERRL, Reports conjunctivae normal NECK Neck: Reports ROM normal PULMONARY Pulmonary: Reports effort normal, Reports breath sounds normal CARDIOVASCULAR Cardiovascular: Reports regular rhythm, Reports heart sounds normal, Reports capillary refill normal, Reports normal rate GASTROINTESTINAL Abdominal: Reports soft, Reports tender (LLQ), Reports left CVA tenderness GENITOURINARY Genitourinary: Reports exam deferred SKIN Skin: Reports warm, Reports dry MUSCULOSKELETAL Musculoskeletal: Reports ROM normal NEUROLOGICAL Neurological: Reports alert, Reports oriented x 3, Reports no gross motor or sensory deficits PSYCHOLOGICAL Psychological: Reports mood/affect normal, Reports judgement normal Results Laboratory Lab results reviewed: Yes Laboratory comments Laboratory Tests Test 10/13/19 19:31 10/13/19 19:28 Urine Color Red (YELLOW) Urine Clarity Sl cloudy (CLEAR) Urine pH 6 (5 - 7) Urine Specific [place] >=1.030 (1.010-1.025) Urine Protein 2+ (NEGATIVE) Urine Glucose (UA) Negative (NEGATIVE) Urine Ketones Negative (NEGATIVE) Urine Blood 4+ (NEGATIVE) Urine Nitrite Negative (NEGATIVE) Urine Bilirubin Negative (NEGATIVE) Urine Urobilinogen 0.2 mg/dL (0.2 - 1) Urine Leukocyte Esterase Trace (NEGATIVE) Urine RBC >50 /HPF (0-5) Urine WBC 0-5 /HPF (0-5) Urine Epithelial Cells None /LPF (NONE) Urine Bacteria None /HPF (NONE) Urine Test Negative (NEGATIVE) White Blood Count 8.53 x10e3/uL (4.8-10.8) Red Blood Count 4.50 x10e6/uL (3.6-5.1) Hemoglobin 13.3 g/dL (12.0-16.0) Hematocrit 39.8 % (34.2-44.1) Mean Corpuscular Volume 88.4 fL (81-99) Mean Corpuscular Hemoglobin 29.6 pg (28-32) Mean Corpuscular Hemoglobin Concent 33.4 g/dL (31-35) Red Cell Distribution Width 13.3 % (11.7-14.4) Platelet Count 293 x10e3/uL (140-360) Neutrophils (%) (Auto) 54.6 % (38.7-80.0) Lymphocytes (%) (Auto) 36.6 % (18.0-39.1) Monocytes (%) (Auto) 5.0 % (4.4-11.3) Eosinophils (%) (Auto) 2.8 % (0.0-6.0) Basophils (%) (Auto) 0.6 % (0.0-1.0) Neutrophils # (Auto) 4.7 (2.1-6.9) Lymphocytes # (Auto) 3.1 (1.0-3.2) Monocytes # (Auto) 0.4 (0.2-0.8) Eosinophils # (Auto) 0.2 (0.0-0.4) Basophils # (Auto) 0.1 (0.0-0.1) Absolute Immature Granulocyte (auto 0.03 x10e3/uL (0-0.1) Sodium Level 142 mmol/L (136-145) Potassium Level 3.3 mmol/L (3.5-5.1) Chloride Level 106 mmol/L (98-107) Carbon Dioxide Level 24 mmol/L (22-29) Anion Gap 15.3 mmol/L (8-16) Blood Urea Nitrogen 13 mg/dL (7-26) Creatinine 0.77 mg/dL (0.57-1.11) Estimat Glomerular Filtration Rate > 60 ML/MIN (60-) BUN/Creatinine Ratio 17 (6-25) Glucose Level 142 mg/dL (74-118) Calcium Level 9.9 mg/dL (8.4-10.2) Total Bilirubin 0.4 mg/dL (0.2-1.2) Aspartate Amino Transf (AST/SGOT) 19 IU/L (5-34) Alanine Aminotransferase (ALT/SGPT) 33 IU/L (0-55) Alkaline Phosphatase 92 IU/L (40-150) Total Protein 7.0 g/dL (6.5-8.1) Albumin 3.6 g/dL (3.5-5.0) Globulin 3.4 g/dL (2.3-3.5) Albumin/Globulin Ratio 1.1 (0.8-2.0) Imaging Imaging results reviewed: Yes Impressions [place] [address] Patient Name: ERNESTINA PERRY MR #: [id number] : 1975 Age/Sex: 44/F Req #: [id number] Adm Physician: Ordered by: LUCIA KAPOOR DO Report #: [id number] Location: Room/Bed: Procedure: [id number] CT/CT ABDOMEN/PELVIS WO Exam Date: 10/13/19 Exam Time: 2123 REPORT STATUS: Signed EXAM: CT Abdomen and Pelvis WITHOUT contrast INDICATION: ^L flank pain ^[id number] ^2123 COMPARISON: CT dated 10/01/2019 TECHNIQUE: Abdomen and pelvis were scanned utilizing a multidetector helical scanner from the lung base to the pubic symphysis without administration of IV contrast. Absence of intravenous contrast decreases sensitivity for detection of focal lesions and vascular pathology. Coronal and sagittal reformations were obtained. Routine protocol was performed. IV CONTRAST: None ORAL CONTRAST: Water COMPLICATIONS: None RADIATION DOSE: Total DLP: 674.02 mGy*cm Estimated effective dose: (DLP x 0.015 x size factor) mSv CTDIvol has been reviewed. It is below the limits set by the Radiation Protocol Committee (RPC). FINDINGS: LINES and TUBES: Left nephroureteral stent. LOWER THORAX: Unremarkable HEPATOBILIARY: Unenhanced liver is unremarkable. No biliary ductal dilation. GALLBLADDER: Absent. SPLEEN: No splenomegaly. PANCREAS: No focal masses or ductal dilatation. ADRENALS: Stable 2.3 cm left adrenal adenoma. No right adrenal nodule. KIDNEYS/URETERS: Mild left hydronephrosis, decreased from prior exam. Tiny residual calculus at the left ureterovesical junction, blunting the stent (series 3, image 171). Limited for evaluation of renal parenchyma without intravenous contrast. Punctate right renal inferior and superior pole calculi. GI TRACT: No abnormal distention, wall thickening, or evidence of bowel obstruction. Appendix is normal. PELVIC ORGANS/BLADDER: Hysterectomy. LYMPH NODES: No lymphadenopathy. VESSELS: Unremarkable. PERITONEUM / RETROPERITONEUM: No free air or fluid. BONES: Unremarkable. SOFT TISSUES: Unchanged lower anterior abdominal wall subcutaneous stranding/soft tissue thickening. IMPRESSION: 1. Mild left hydronephrosis, decreased from prior exam. Status post left nephroureteral stent placement with tiny residual calculus at left ureterovesical junction, decreased in size when compared to prior exam. 2. Right renal subcentimeter nonobstructive calculi. 3. Stable left adrenal adenoma. Signed by: Dr. Jerson Stoddard MD on 10/13/2019 9:58 PM Dictated By: JERSON STODDARD MD 57 Transcribed By: NING on 10/13/192157 COPY TO: LUCIA KAPOOR DO~ Assessment & Plan Medical Decision Making MDM patient with marked improvement in symptoms. Responding well ot clinical therapy. Rx Cipro, Flomax, tylenol #3 Assessment & Plan Final Impression: (1) Ureterolithiasis (2) UTI (urinary tract infection) Depart Disposition: HOME, SELF-CARE Last Vital Signs Date Time Temp Pulse Resp B/P (MAP) Pulse Ox O2 Delivery O2 Flow Rate FiO2 10/15/19 00:00 98.3 58 18 136/79 (98) 99 10/14/19 18:55 Room Air Home Meds Active Scripts Metoprolol Tartrate (METOPROLOL TARTRATE) 50 Mg Tablet, 50 MG PO Q12HR for 15 Days Prov:WESLEY RODRIGUEZ MD 10/04/19 Reported Medications Ondansetron Hcl* (ZOFRAN*) 4 Mg Tablet, 4 MG PO Q6H PRN for NAUSEA 10/04/19 Acetaminophen With Codeine (TYLENOL WITH CODEINE #3 TABLET) 1 Each Tablet, 300 MG PO Q6H PRN for Mild Pain (1-3) or Fever>100.8, TAB 10/04/19 Discontinued Scripts Cephalexin Monohydrate (KEFLEX) 500 Mg Capsule, 500 MG PO Q12H, #17 Prov:WESLEY RODRIGUEZ MD 10/04/19 Medications in the ED Sodium Chloride 1,000 ml @ 0 mls/hr Q0M STAT IV Last administered on 10/13/19at 23:41; Admin Dose 999 MLS/HR; Start 10/13/19 at 19:27; Stop 10/13/19 at 19:28; Status DC Ketorolac Tromethamine 30 mg ONCE STAT IV ; Start 10/13/19 at 19:27; Stop 10/13/19 at 19:29; Status LUCIA FERNANDEZ DO Oct 13, 2019 19:25
[2019-10-13] MEDS ORDERED: KETOROLAC TROMETHAMINE 30 MG/ML VIAL IV STA (19:27)
[2019-10-13] MEDS ORDERED: SODIUM CHLORIDE 0.9% 1000ML 1,000 ML IV STA (19:27)
[2019-10-13 19:53] LABS: BASOPHILS # (AUTO) 0.1 (0.0-0.1); BASOPHILS % 0.6 % (0.0-1.0); EOSINOPHILS # (AUTO) 0.2 (0.0-0.4); EOSINOPHILS % 2.8 % (0.0-6.0); HEMATOCRIT 39.8 % (34.2-44.1); HEMOGLOBIN 13.3 g/dL (12.0-16.0); LYMPHOCYTES # (AUTO) 3.1 (1.0-3.2); LYMPHOCYTES % 36.6 % (18.0-39.1); MEAN CORPUSCULAR HEMOGLOBIN 29.6 pg (28-32); MEAN CORPUSCULAR HGB CONC 33.4 g/dL (31-35); MEAN CORPUSCULAR VOLUME 88.4 fL (81-99); MONOCYTES # (AUTO) 0.4 (0.2-0.8); NEUTROPHILS # (AUTO) 4.7 (2.1-6.9); NEUTROPHILS % 54.6 % (38.7-80.0); PLATELET COUNT 293 x10e3/uL (140-360); RED CELL DISTRIBUTION WIDTH 13.3 % (11.7-14.4)
[2019-10-13 20:07] LABS: ALANINE AMINOTRANSFERASE 33 IU/L (0-55); ALBUMIN 3.6 g/dL (3.5-5.0); ALBUMIN/GLOBULIN RATIO 1.1 (0.8-2.0); ALKALINE PHOSPHATASE 92 IU/L (40-150); ANION GAP 15.3 mmol/L (8-16); BLOOD UREA NITROGEN 13 mg/dL (7-26); BUN/CREATININE RATIO 17 (6-25); CALCIUM 9.9 mg/dL (8.4-10.2); CARBON DIOXIDE 24 mmol/L (22-29); CHLORIDE 106 mmol/L (98-107); CREATININE, SERUM 0.77 mg/dL (0.57-1.11); EST GLOMERULAR FILTRATION RATE > 60 ML/MIN (60-); GLUCOSE 142 mg/dL (74-118); POTASSIUM 3.3 mmol/L (3.5-5.1); SODIUM 142 mmol/L (136-145)
[2019-10-13 20:25] LABS: CLARITY,URINE SL CLOUDY (CLEAR); COLOR,URINE RED (YELLOW)
[2019-10-13 20:26] LABS: BILIRUBIN,URINE NEGATIVE (NEGATIVE); KETONES,URINE NEGATIVE (NEGATIVE); LEUKOCYTE ESTERASE ,URINE TRACE (NEGATIVE); NITRITE,URINE NEGATIVE (NEGATIVE); PROTEIN,URINE DIPSTICK 2+ (NEGATIVE); URINE UROBILINOGEN 0.2 mg/dL (0.2 - 1)
[2019-10-13 20:27] LABS: PREGNANCY TEST, URINE NEGATIVE (NEGATIVE)
[2019-10-13 20:32] LABS: RBC,URINE >50 /HPF (0-5); WBC,URINE (MAN) 0-5 /HPF (0-5)
--- NOTE | 2019-10-13 22:02 | Diagnostic Imaging Report ---
EXAM: CT Abdomen and Pelvis WITHOUT contrast INDICATION: ^L flank pain ^[id number] ^[id number] COMPARISON: CT dated 10/01/2019 TECHNIQUE: Abdomen and pelvis were scanned utilizing a multidetector helical scanner from the lung base to the pubic symphysis without administration of IV contrast. Absence of intravenous contrast decreases sensitivity for detection of focal lesions and vascular pathology. Coronal and sagittal reformations were obtained. Routine protocol was performed. IV CONTRAST: None ORAL CONTRAST: Water COMPLICATIONS: None RADIATION DOSE: Total DLP: 674.02 mGy*cm Estimated effective dose: (DLP x 0.015 x size factor) mSv CTDIvol has been reviewed. It is below the limits set by the Radiation Protocol Committee (RPC). FINDINGS: LINES and TUBES: Left nephroureteral stent. LOWER THORAX: Unremarkable HEPATOBILIARY: Unenhanced liver is unremarkable. No biliary ductal dilation. GALLBLADDER: Absent. SPLEEN: No splenomegaly. PANCREAS: No focal masses or ductal dilatation. ADRENALS: Stable 2.3 cm left adrenal adenoma. No right adrenal nodule. KIDNEYS/URETERS: Mild left hydronephrosis, decreased from prior exam. Tiny residual calculus at the left ureterovesical junction, blunting the stent (series 3, image 171). Limited for evaluation of renal parenchyma without intravenous contrast. Punctate right renal inferior and superior pole calculi. GI TRACT: No abnormal distention, wall thickening, or evidence of bowel obstruction. Appendix is normal. PELVIC ORGANS/BLADDER: Hysterectomy. LYMPH NODES: No lymphadenopathy. VESSELS: Unremarkable. PERITONEUM / RETROPERITONEUM: No free air or fluid. BONES: Unremarkable. SOFT TISSUES: Unchanged lower anterior abdominal wall subcutaneous stranding/soft tissue thickening. IMPRESSION: 1. Mild left hydronephrosis, decreased from prior exam. Status post left nephroureteral stent placement with tiny residual calculus at left ureterovesical junction, decreased in size when compared to prior exam. 2. Right renal subcentimeter nonobstructive calculi. 3. Stable left adrenal adenoma. Signed by: Dr. Jerson Adorno MD on 10/13/2019 9:58 PM
[2019-10-13] MEDS: ONDANSETRON HCL INJ 2MG/ML 2ML 2 MG/ML VIAL IV PRN (23:42)
[2019-10-13] MEDS: MORPHINE SULFATE INJ 4 MG/ML INJ 1ML IV PRN (23:42)
--- OUTSIDE RECORDS SUMMARY | 2019-10-13 23:57 | XMS REPORT | Continuity of Care Document ---
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 Oral (F) 98.5 F 10/26/2017 [facility] Height 167.64 cm 10/26/2017 [facility] Weight 90.909 10/26/2017 [facility] Respitory Rate 17 10/26/2017 [facility] Systolic (mm Hg) 123 10/26/2017 [facility] Diastolic (mm Hg) 59 10/26/2017 [facility] Heart Rate 113 10/26/2017 [facility] Temperature Oral (F) 98.1 F 09/18/2017 [facility] Heart Rate 71 09/18/2017 [facility] Systolic (mm Hg) 128 09/18/2017 [facility] Diastolic (mm Hg) 75 09/18/2017 [facility] Respitory Rate 19 09/18/2017 [facility] Respitory Rate 16 09/18/2017 [facility] Heart Rate 79 09/18/2017 [facility] Systolic (mm Hg) 135 09/18/2017 [facility] Diastolic (mm Hg) 78 09/18/2017 [facility] Weight 100 09/18/2017 [facility] BMI Calculated 35.58 09/18/2017 [facility] Heart Rate 72 09/18/2017 [facility] Respitory Rate 18 09/18/2017 [facility] Height 167.64 cm 09/18/2017 [facility] Systolic (mm Hg) 144 09/18/2017 [facility] Diastolic (mm Hg) 92 09/18/2017 [facility] Temperature Oral (F) 98.3 F 09/18/2017 [facility] Systolic (mm Hg) 143 03/19/2017 [facility] Diastolic (mm Hg) 85 03/19/2017 [facility] Respitory Rate 18 03/19/2017 [facility] Heart Rate 70 03/19/2017 [facility] Temperature Oral (F) 98.1 F 03/19/2017 [facility] Temperature Oral (F) 98.1 F 03/19/2017 [facility] Weight 90.909 03/19/2017 [facility] Systolic (mm Hg) 146 03/19/2017 [facility] Diastolic (mm Hg) 105 03/19/2017 [facility] Heart Rate 71 03/19/2017 [facility] Respitory Rate 18 03/19/2017 [facility] Systolic (mm Hg) 142 03/14/2017 [facility] Diastolic (mm Hg) 88 03/14/2017 [facility] Temperature Oral (F) 98.1 F 03/14/2017 [facility] Heart Rate 84 03/14/2017 [facility] Respitory Rate 14 03/14/2017 [facility] Weight 90.909 03/13/2017 [facility] BMI Calculated 32.35 03/13/2017 [facility] Systolic (mm Hg) 146 03/13/2017 [facility] Diastolic (mm Hg) 90 03/13/2017 [facility] Height 167.64 cm 03/13/2017 [facility] Temperature Oral (F) 98.4 F 03/13/2017 [facility] Respitory Rate 20 03/13/2017 [facility] Heart Rate 80 03/13/2017 [facility] Encounters Location Location Details Encounter Type Encounter Number Reason For Visit Attending Provider ADM Date DC Date Status Source [facility] Emergency [id number] Ernst Jaswinder 03/13/2017 03/14/2017 [facility] Emergency [id number] Emily Alcanter 03/19/2017 03/19/2017 [facility] Emergency [id number] Emily Alcanter 09/18/2017 09/18/2017 [facility] Emergency [id number] Jose Luis Barbie 10/26/2017 10/27/2017 [facility] Emergency [id number] Alonso Hwang 12/17/2018 12/18/2018 [facility] Emergency [id number] Saman Vásquez 06/08/2019 06/09/2019 [facility] Procedures No Data Provided for This Section Assessment and Plan No Data Provided for This Section Plan of Care No Data Provided for This Section Social History Social History Date Source Social History TypeResponse Smoking Status Never smoker; Exposure to Tobacco Smoke None; Cigarette Smoking Last 365 Days No; Reg Smoking Cessation Counseling No entered on: 06/08/19 06/08/2019 [facility] Social History TypeResponse Smoking Status Never smoker; Exposure to Tobacco Smoke None; Cigarette Smoking Last 365 Days No; Reg Smoking Cessation Counseling No entered on: 12/17/18 12/18/2018 [facility] Family History No Data Provided for This Section Advance Directives No Data Provided for This Section Functional Status No Data Provided for This Section
--- OUTSIDE RECORDS SUMMARY | 2019-10-13 23:57 | XMS REPORT | Clinical Summary ---
Author Author [facility] Address Unknown Phone Unavailable Care Team Providers Care General Manager Road Production Name Role Phone Asked, No Pcp PCP [...] Advance Directives For more information, please contact: [phone] Patient [employer] Explanation Type Date Recorded Advance Directives, Living Will and Medical Power of Block Inspector
--- OUTSIDE RECORDS SUMMARY | 2019-10-13 23:58 | XMS REPORT | Continuity of Care Document ---
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 CT CTDI: 16.26 DLP: 1865.03 Trnscrbd D/ (1534) [facility] NAME: ERNESTINA PERRY Radio logy Department PHYS: Doug Wise MD [address] : 1975 AGE: 43 SEX: F [place], [place] [address] LOC: Kaylan.8940 A PHONE #: [phone] EXAM DATE: 11/03/2018 STATUS: ADM IN FAX #: [phone] RAD NO: Page 2 Signed Report 1 Patient Name: ERNESTINA PERRY Unit No: [id number] EXAMS: CPT COD E: [id number] CT ABD PELVIS W/CONT 40251 <Continued> Orig Print D/T: S: 11/03/2018 (1537) [facility] NAME: ERNESTINA PERRY Radiology Department PHYS: Doug Wise MD [address] : 1975 AGE: 43 SEX: F [place], [place] [address] LOC: Kaylan.Coleman0 A PHONE #: [phone] EXAM DATE: 11/03/2018 STATUS: ADM IN FAX #: [phone] RAD NO: Page 3 Signed Report 1 - US TRANSVAGINAL W/TETRAO8162-66-81 14:44:00 Patient Name: ENRESTINA PERRY Unit No: [id number] EXAMS: CPT CODE: [id number] US TRANSVAGINAL W/PELVIS 01020 CLINICAL HISTORY: Left lower quadrant pain. COMPARISON: [...] CC: Technologist: Christopher Garcia RDMS, T Probe: [id number] Trnscrbd D/ (5766) Cj Orig Print D/T: S: 11/03/2018 (2124) [facility] N CHENG: ERNESTINA PERRY Radiology Department PHYS: Doug Wise MD [address] : 1974 AGE: 43 SEX: [place], [place] [address] LOC: Kaylan.2660 A PHONE #: [phone] EXAM DATE: 11/03/2018 STATUS: ADM IN FAX #: [phone] RAD NO: Page 1 Signed Report Patient Name: ERNESTINA ROSE Unit No: [id number] EXAMS: CPT CODE: [id number] [place] TRANSVAGINAL W/[place] [address] <Continued> [facility] NAME: ERNESTINA PERRY Radiology Department PHYS: Doug Wise MD [address] : 1975 AGE: 43 SEX: F [place], [place] [address] LOC: Villa0 A PHONE #: [phone] EXAM DATE: 11/03/2018 STATUS: ADM IN FAX #: [phone] RAD NO: Page 2 Signed Report - US PELVIS LGQDTXHJ2737-83-37 14:44:00 Patient Name: ERNESTINA PERRY Unit No: [id number] EXAMS: CPT CODE: [id number] US PELVIS COMPLETE 16060 CLINICAL HISTORY: Left lower quadrant pain. COMPARISON: [...] Christopher Garcia RDMS, RVT Probe: Trnscrbd D/ (8914) tLALITA Orig Print D/T: S: 11/03/2018 (0311) [facility] NAME: ERNESTINA PERRY Radiology Department PHYS: Doug Wise MD [address] : 1975 AGE: 43 SEX: [place], [place] [address] LOC: Adri A PHONE #: [phone] EXAM DATE: 11/03/2018 STATUS: ADM IN FAX #: [phone] RAD NO: Page 1 Signed Report Patient Name: ERNESTINA PERRY Unit No: [id number] EXAMS: CPT CODE: [id number] US PELVIS COMPLETE 52650 < Continued> [facility] NAME: ERNESTINA PERRY Radiology Department PHYS: Doug Wise MD [address] : 1975 AGE: 43 SEX: F [place], [place] [address] LOC: Reji2660 A PHONE #: [phone] EXAM DATE: 11/03/2018 STATUS: ADM IN FAX #: [phone] RAD NO: Page 2 Signed Report COMPREHENSIVE METABOLIC [id number] 13:55:00* Test Item Value Reference Range Interpretation [...] code = ALKP) 85 units/L 46-116 N SWYOUYP6579-73-41 13:55:00* Test Item Value Reference Range Interpretation Comments AMYLASE (test code = JAVID) 37 units/L 30-110 N NOEEFE4901-93-51 13:55:00* Test Item Value Reference Range Interpretation Comments LIPASE (test code = LIP) 110 units/L 73-393 N URINALYSIS VWBPTFCL4619-20-43 13:25:00* Test Item Value Reference Range Interpretation [...] NONE SEEN URINE SAMPLE: CLEAN CATCHCBC W/AUTO DOZN5347-00-11 13:18:00* Test Item Value Reference Range Interpretation [...] code = PLTMR) NORMAL MERRITT L CHEM YDGPA0073-04-73 22:51:0028[facility] VUHHZ5844-12-70 22:51:003.5 [facility] HermannCHEM EOQPG1376-28-14 22:51:0069[facility]annCHEM PANEL 2017-10-26 22:51:67883Lfytvwcg [facility]annCHEM PUKAK4745-24-17 22:51:0096[facility]annCHEM CNHRQ9618-41-77 22:51:000.6[facility]annCHEM ITLTJ6757-86-72 22:51:0096[facility]annCHEM AKMHA0190-05-92 22:51:009[facility]annCHEM POUEL1534-17-46 22:51:003.6[facility]annCHEM AWJAN7588-36-25 22:51:000.70 [facility] YDQSQ7649-08-33 22:51:58446Qmkyocon [facility]annCHE[facility] PANEL 2017-10-26 22:51:41326Iixffgry HermannCHEM GBMJJ5901-48-16 22:51:007.6[facility]annCHEM XOCAF8651-88-65 22:51:0025[facility]annCHEM FEBJZ4639-81-24 22:51:009.5[facility]annCHEM DARYN1509-57-90 22:51:004.1[facility]ann[facility] TUWUN1361-33-60 22:51:00* Test Item Value Reference Range Interpretation Comments A/G Ratio (test code = A/G Ratio) 0.9 1 0.7-1.6 [facility] PHDEZ8636-54-92 22:51:0012.6[facility] HermannCHEM PANEL 2017-10-26 22:51:00* Test Item Value Reference Range Interpretation Comments B/C Ratio (test code = B/C Ratio) 13 1 10-28 [facility] FtpsrjfJFTHMNRWYMWTK4951-35-27 22:51:00Negative *NA*(10/26/17 5:51 PM) [facility] ImudswtIPPEZRXZIR1913-89-88 22:51:000.7[facility] HermannHEMATOLOGY 2017-10-26 22:51:002.0[facility] ZkaurflXIHDDTCVIW2368-98-21 22:51:008.2[facility] XgphixwWSJMSBKODW8132-57-85 22:51:000.6[facility] NpgnkjdHIDQLNPWDR5858-66-45 22:51:006.2[facility] DuxpxgfNAPLVCMMRN4590-05-29 22:51:001.0[facility] XDEVINQXTE1688-01-94 22:51:000.1[facility] QrblukgWHZIEOPUHD6895-73-18 22:51:000.1 [facility] ZmoyuvlBYBWHTGHRM9655-64-50 22:51:0018.1[facility] HermannHEMATOLOGY 2017-10-26 22:51:0074.1[facility] XotuyxxYIXHIQPPJG6949-88-40 22:51:009.4[facility] LnxofteERIYCWUZTJ9702-18-07 22:51:25831Zfduokah WiuyudbIHQYEPALVU2202-70-28 22:51:0032.5[facility] VvbqzpmKNTSTGHLVW0807-03-19 22:51:0081.6[facility] Kris YCAQKEZGEY8274-19-62 22:51:0041.1[facility] NgbveirJRLFINFYTE6927-46-69 22:51:00* Test Item Value Reference Range Interpretation Comments MCH (test code = MCH) 26.5 pg 27.0-31.0 [facility] UwgifxfYPUCFUORTT6929-11-13 22:51:0021.4[facility] HermannHEMATOLOGY 2017-10-26 22:51:005.04[facility] MmojhfeQTKHPZXNCQ3502-68-09 22:51:0011.1[facility] IsswfvsTQBQQHARSX3983-14-96 22:51:0013.4[facility]ann[facility]INE AND STOOL 2017-10-26 22:51:00Clear (10/26/17 5:51 PM)[facility] STOOL 2017-10-26 22:51:00Yellow *NA*(10/26/17 5:51 PM)[facility] ST[facility]OL 2017-10-26 22:51:00* Test Item Value Reference Range Interpretation Comments UA pH (test code = UA pH) 5.0 1 5.0-8.0 [facility] MIJPO4110-13-14 22:51:00* Test Item Value Reference Range Interpretation Comments UA Spec Grav (test code = UA Spec Grav) 1.017 1 [facility] KMXMX6494-43-56 22:51:00Negative *NA*(10/26/17 5:51 PM) [facility] VECOD5821-85-39 22:51:00Large *ABN*(10/26/17 5:51 PM) [facility] RBGOL7145-92-70 22:51:00>182[facility] MMVUQ8614-60-85 22:51:00Negative (10/26/17 5:51 PM)[facility] QNLQT9548-34-35 22:51:001[facility] AQASS9211-68-21 22:51:00 Negative (10/26/17 5:51 PM)[facility]annCHE[facility] ZNPBP6836-98-65 14:34:65205 [facility]annCHEM COZFU7682-50-48 14:34:89161Fgkxihsf HermannCHEM PANEL 2017-09-18 14:34:0080[facility]annCHEM NOTAO7400-87-76 14:34:000.4[facility]annCHEM IXBPY5150-22-18 14:34:0032[facility]annCHEM ZGGCD7538-78-90 14:34:0049[facility]annCHEM SIREC5010-07-85 14:34:006.9[facility]annCHEM NGUTW7366-05-72 14:34:003.2[facility]annCHE[facility] QCFRS6450-59-90 14:34:10600 [facility]CHE[facility] HEAVN5640-49-57 14:34:003.8[facility]annCHEM PANEL 2017-09-18 14:34:008.9[facility]annCHE[facility] LCPYG7747-79-65 14:34:0027[facility]annCHEM EUYCE5766-00-25 14:34:53491Znyjxjiz [facility]annCHEM XXZAU9471-24-69 14:34:81734Xjeyslxd [facility]CHE[facility] FFTGQ2932-67-15 14:34:000.57[facility]annCHEM GOTPG0823-52-54 14:34:0011[facility]annCHEM FEIYJ8318-33-58 14:34:00* Test Item Value Reference Range Interpretation Comments A/G Ratio (test code = A/G Ratio) 0.9 1 0.7-1.6 [facility]CHE[facility] CEJYY9971-84-04 14:34:003.7[facility] HermannCHEM PANEL 2017-09-18 14:34:0012.8[facility]annCHE[facility] YDLJR5845-52-28 14:34:00* Test Item Value Reference Range Interpretation Comments B/C Ratio (test code = B/C Ratio) 19 1 6-25 [facility] FallsAiughdqHAQZFQJTNSBLN3363-79-02 14:34:00Negative *NA*(09/18/17 9:34 AM) [facility] IqgyxpzZSJJLGDVHZ2984-47-50 14:34:0077.5[facility] HermannHEMATOLOGY 2017-09-18 14:34:00* Test Item Value Reference Range Interpretation Comments MCH (test code = MCH) 24.5 pg 27.0-31.0 [facility] WxdumtqQOHVGIYOVT3514-61-70 14:34:0010.9[facility] HermannHEMATOLOGY 2017-09-18 14:34:0034.5[facility] IionwroMADKKOLBTL7437-95-06 14:34:004.45[facility] DtljlhaXGPQZEHKQA3887-69-67 14:34:006.9[facility] TudznibRESHKTFVOJ8652-42-04 14:34:33895Ihvfteul UavfgxcVIDCTGNVQI4857-60-59 14:34:009.7[facility] Kris GRIOZECYEU0442-79-96 14:34:0031.7[facility] QqrbubvOSBXITHCUN5031-78-22 14:34:00 15.7[facility] TkrqnatADICDNULLN9987-64-56 14:34:0031.1[facility] HermannHEMATOLOGY 2017-09-18 14:34:006.5[facility] FjajudfAUCTJNXZYF4082-47-53 14:34:003.9[facility] PtbvpkoZAMTJISJCS3768-05-51 14:34:001.4[facility] BobdrhpQSZAPZYMJS8381-96-44 14:34:0056.4[facility] FpemseyHDVHJVOYVX4047-91-44 14:34:004.6[facility] EESPVHVDFS2384-25-80 14:34:001+ *ABN*(09/18/17 9:34 AM)[facility]annHEMATOLOGY 2017-09-18 14:34:000.4[facility] WhfsljfMXJEIQXAGM0601-30-34 14:34:002.1[facility] DblhnwkPVSVRVHGUX0081-08-35 14:34:000.1[facility] WwirdymLBLKVBUASM4617-86-88 14:34:000.3[facility] AND KUGZH7904-23-95 14:34:0072[facility] URINE AND JKJNF5068-09-99 14:34:003[facility] NUMFP0501-04-93 14:34:00Negative (09/18/17 9:34 AM)[facility] LZQSE7023-22-87 14:34:00Negative (09/18/17 9:34 AM)[facility] CVOEG0514-26-09 14:34:00Large *ABN*(09/18/17 9:34 AM)[facility] IOJMR8354-88-81 14:34:00Negative *NA*(09/18/17 9:34 AM)[facility] CDRHD1891-30-57 14:34:00* Test Item Value Reference Range Interpretation Comments UA pH (test code = UA pH) 5.0 1 5.0-8.0 [facility] XXIVB2074-39-72 14:34:00* Test Item Value Reference Range Interpretation Comments UA Spec Grav (test code = UA Spec Grav) 1.021 1 [facility] QHZPP5343-21-37 14:34:00Clear (09/18/17 9:34 AM) [facility] JGZMR7037-06-88 14:34:00Yellow *NA*(09/18/17 9:34 AM) [facility] BGFFO1480-09-60 03:46:004[facility] QTBQR3294-46-76 03:46:006[facility] VWSFM3538-39-26 03:46:00 Negative (03/18/17 9:46 PM)[facility] PSBIJ9341-62-08 03:46:00 Yellow *NA*(03/18/17 9:46 PM)[facility] HPJON2714-30-12 03:46:00 1.026[facility] ZLCQA1006-23-81 03:46:00Clear (03/18/17 9:46 PM) [facility] LSHDX3698-30-63 03:46:005.0[facility] XERHF9220-10-18 03:46:00Negative *NA*(03/18/17 9:46 PM)[facility] WBVFQ0552-26-56 03:46:00Negative (03/18/17 9:46 PM)[facility] KDMPL7960-81-07 03:46:00Small *ABN*(03/18/17 9:46 PM)[facility]annCHEM PANEL 2017-03-19 03:34:42862Vlxeqnzm [facility]annCHEM MNWYL7868-28-15 03:34:0084[facility]annCHEM SAWYU5116-62-81 03:34:000.8[facility]annCHEM LURGO5055-54-14 03:34:79216Lkxvohsa [facility]CHE[facility] FZGHK2782-97-30 03:34:0010[facility]annCHEM XOUWN8282-46-30 03:34:0096[facility]annCHEM ZVCMV0575-61-24 03:34:33648 [facility]CHE[facility] GIMKT0711-83-96 03:34:62748Mlmgxgza [facility]annCHE[facility] PANEL 2017-03-19 03:34:0023[facility] HermannCHEM JASUR4822-05-25 03:34:0024[facility]annCHEM VFCDX6414-51-26 03:34:003.2[facility]annCHEM FPZHI4742-06-88 03:34:009.3[facility]annCHEM VJNFK1208-16-30 03:34:000.86[facility]annCHEM RSYYR4545-38-72 03:34:0054[facility]annCHEM DWDSK0441-13-36 03:34:003.1 [facility]CHE[facility] GCSMF3310-12-98 03:34:007.5[facility]annCHEM PANEL 2017-03-19 03:34:000.7[facility]annCHEM GETDD7445-68-95 03:34:0013.2[facility]annCHEM KFYIU2829-87-87 03:34:0012[facility]annCHEM ACUXR8155-40-62 03:34:004.4[facility] UdijwsdCELZTUWKTJXBW3852-28-02 03:34:00Negative *NA*(03/18/17 9:34 PM)[facility] QjqhiymBAHDMWWKEJ2723-94-31 03:34:005.9[facility] KijhqwrFFIHITNUTU9880-22-88 03:34:000.5[facility] CmplyqeICPYLWDKKG3328-87-91 03:34:001.6[facility] PmoplcmPUYBOAJLXI7789-32-04 03:34:0021.4[facility] MTFZJHTEHW4001-60-86 03:34:0069.8[facility] PupryhjZPGZOOFFVR4596-78-32 03:34:00 6.7[facility] KsdespcUBTQNRCJHI5115-32-65 03:34:000.6[facility]annHEMATOLOGY 2017-03-19 03:34:001.8[facility] HvgvcabFVXXVKIKKL1799-04-19 03:34:000.1[facility] SzzibmvQYZOLLCSEP3005-10-68 03:34:0015.6[facility] TnbusroWMFJVXZXVO7374-68-11 03:34:0034.1[facility] FktspydKXPDIXJLAK7435-07-53 03:34:00* Test Item Value Reference Range Interpretation Comments MCH (test code = MCH) 28.8 pg 27.0-31.0 [facility] MwptvpdVZGPXKCJJZ1649-58-09 03:34:0084.5[facility]annHEMATOLOGY 2017-03-19 03:34:10603Vylxtijs XqkvensPENJMMKIDI1887-68-58 03:34:0038.3[facility] NulanjzNTQYFJAOWU4337-95-41 03:34:0013.0[facility] VkeijlsQKIAYSPHCN5873-72-14 03:34:004.53[facility] CqvhqrnGQPIKZFBGL5873-87-92 03:34:009.3[facility] UBSGBITPRW6197-29-34 03:34:008.5[facility] HermannCARDIAC IJGAKAG3242-41-86 00:04:001.2[facility] HermannCARDIAC BXCVUNS6959-15-82 00:04:001.2[facility] CARDIAC GOHRETH0018-42-77 00:04:000.03[facility] HermannCARDIAC DILILBK7411-83-04 00:04:46941Tkuyaywd [facility]annCHEM GZVKZ7182-16-82 00:04:03855Yxpjebmx [facility]CHE[facility] PIBJW8357-25-63 00:04:0091[facility]annCHEM ULWGO6034-78-96 00:04:003.6 [facility]CHE[facility] RWHSU9063-99-34 00:04:009.4[facility]annCHEM PANEL 2017-03-14 00:04:0089[facility]annCHEM GQZAL7707-46-62 00:04:0024[facility]annCHEM DAQQF4453-90-79 00:04:003.7[facility]annCHEM PPYZX2510-93-97 00:04:43671Gdnosyaf [facility]CHEM MINPK8383-69-39 00:04:16819Dlhkxiae [facility]CHE[facility] RNDLA3552-56-79 00:04:34332Ehdfjcjr [facility]CHE[facility] LQRZP5745-51-12 00:04:007.3 [facility]CHE[facility] GRAIM7658-65-42 00:04:0010[facility]annCHEM PANEL 2017-03-14 00:04:0012[facility]annCHEM KCRWR7483-67-81 00:04:003.7[facility]annCHEM WPHZF0961-29-27 00:04:000.9[facility]annCHEM JLSQC6850-54-41 00:04:0010.7[facility]annCHEM EOPSZ7493-75-71 00:04:001.0[facility]annCHEM OPPHQ7199-44-04 00:04:31448Lxtfkfnn [facility]CHE[facility] BKMJR2807-71-02 00:04:0057 [facility]CHE[facility] RDDZH0923-11-34 00:04:000.80[facility]annHEMATOLOGY 2017-03-14 00:04:001.5[facility] VjdgeblHNJSLWDMHS6099-06-45 00:04:000.1[facility] GzoovvnMDGMZPLHDA8939-07-99 00:04:000.1[facility] HtfqezoCIUDPOXMUH0743-86-04 00:04:000.6[facility] YbgdjcrPSWPBLVKYD2903-59-68 00:04:0014.6[facility] KWJZXIBRPQ9276-22-50 00:04:0077.8[facility] MgazrqkKJFSCOWHZE7317-69-12 00:04:00 8.0[facility] YlizdupUVKTYWIVHC5440-47-97 00:04:001.0[facility]annHEMATOLOGY 2017-03-14 00:04:001.0[facility] HpxldfsHISOYWJBNC9054-24-69 00:04:005.6[facility] NsicghsARHWAMVNHK6992-82-24 00:04:009.6[facility] RtodblpYRJVQXOPAS3220-82-26 00:04:55759Xboqlhsv CplomlrNMBBFSROWO7388-19-22 00:04:0016.1[facility] ENKKABCYON7722-56-98 00:04:0033.4[facility] OotvxrhKSAZFNQLHX8981-37-71 00:04:00 86.9[facility] RvudcvzPPVLVDLWWZ7524-61-19 00:04:00* Test Item Value Reference Range Interpretation Comments MCH (test code = MCH) 29.0 pg 27.0-31.0 [facility] VgszaayFNZDMIXLCI5335-79-33 00:04:0041.1[facility]annHEMATOLOGY 2017-03-14 00:04:004.74[facility] ZtuwpzoDQGWJPHQWV2988-11-11 00:04:0013.7[facility] JngziuyEKXZVMPMWS1771-22-45 00:04:0010.3[facility] STOOL 2017-03-14 00:04:00Large *ABN*(03/13/17 6:04 PM)[facility] STOOL 2017-03-14 00:04:00Negative (03/13/17 6:04 PM)[facility] STOOL 2017-03-14 00:04:00>182[facility] FHBXR1599-08-34 00:04:0015 [facility] RAFIL3734-34-83 00:04:006.0[facility] YOUNR1776-55-28 00:04:00Negative *NA*(03/13/17 6:04 PM)[facility] ITOVG4780-46-07 00:04:00Negative (03/13/17 6:04 PM)[facility] SXTUB7226-49-18 00:04:001.015[facility] VVMNL4353-91-95 00:04:00 Slight *ABN*(03/13/17 6:04 PM)[facility] Abad AND AFXVM0996-44-68 00:04:00 Yellow *NA*(03/13/17 6:04 PM)[facility]ad WDBT2028-81-78 00:04:00 Negative (03/13/17 6:04 PM)[facility]
[2019-10-14] VITALS (7 sets, daily range): BP systolic 124–152; BP diastolic 76–93
--- NOTE | 2019-10-14 02:19 | NUR ---
RECEIVED PATIENT FROM THE EMERGENCY, POSITION IN BED, ASSESSMENT DONE, WILL CONTINUE TO MONITOR. CALL LIGHT IN REACH.
--- NOTE | 2019-10-14 02:20 | NUR ---
DURING REPORT WAS INFORMED THAT WAS NOTIFIED OF PATIENT PER EMERGENCY ROOM
[2019-10-14] MEDS: SODIUM CHLORIDE 0.9% 1000ML 1,000 ML IV SCH ×4 (03:14→21:10)
[2019-10-14] MEDS: MORPHINE SULFATE INJ 4 MG/ML INJ 1ML IV PRN (05:26)
[2019-10-14] MEDS: ONDANSETRON HCL INJ 2MG/ML 2ML 2 MG/ML VIAL IV PRN (05:26)
--- NOTE | 2019-10-14 05:38 | NUR ---
H&P cc: difficulty urinating HPI: 44yoF, PCP does not recall name, developed worsening left abdominal and left flank pain. NO N/V/fever. pt wants urinary stent removed. PMH: urinary stones, Left ureterolithiasis, right hydroureteronephrosis, UTI, Right nephrolithiasis, Hypokalemia PShx: cholecystectomy, hysterectomy Allergies; see emr Fh/SH; ; no cigs meds; see MAR ROS: no f/cp/sob/skin rash. no cp/sob/dizziness/vision changes/confusion/focal limb weakness v/s; revd PE tired appearing anicteric ns1s2 mod bs LEFT ABDOMEN TENDER; LEFT CVA TENDERNESS- EXQUISITE. no leg edema skin dry n. affect a&ox3; sanchez labs/meds revd A/P: 44yoF Left ureterolithiasis- IVF; urology consult Right hydronephrosis- urology consult. Right nephrolithiasis- as above Hypokalemia- replace and recheck Obesity- caloric restriction needed; hba1c 5.3 inMa2019 BMI 34 Hyperglycemia- hba1c 5.3 in September 2019, LDL 116. Prop: scd DIspo; urology consultation; Reyes Forbes MD, PhD.
[2019-10-14] MEDS ORDERED: ACETAMINOPHEN 325 MG TAB PO PRN (05:45)
[2019-10-14] MEDS ORDERED: DOCUSATE SODIUM 100 MG CAP PO PRN (05:45)
[2019-10-14] MEDS ORDERED: ZOLPIDEM TARTRATE 5 MG TAB PO PRN (05:45)
--- NOTE | 2019-10-14 06:40 | NUR ---
NEW ORDERS NOTED FOR SCD-APPLIED. PATIENT CONTINUE RESTING IN BED TALKING ON THE PHONE, MEDICATED EARLIER FOR PAIN.
--- NOTE | 2019-10-14 07:00 | NUR ---
bedside shift report received pt in stable condition deneis pain at this time, updated on poc vocied understanding, ivf infusing to l fa 20g no ss of infiltration noted, call light in reach will continue to monitor
--- NOTE | 2019-10-14 07:13 | NUR ---
REPORT GIVEN TO AM NURSE.
[2019-10-14] MEDS: FAMOTIDINE 20 MG TAB PO SCH ×2 (07:30→16:30)
[2019-10-14] MEDS: METOPROLOL TARTRATE 50 MG TAB PO SCH ×2 (09:00→21:00)
--- NOTE | 2019-10-14 10:41 | Diagnostic Imaging Report ---
Exam: KUB - 2 views Indication: Renal calculus Comparison: CT abdomen and pelvis of 10/13/2019 and 10/01/2019 Findings: Left internal nephroureteral stent in place. No radiographically apparent renal calculi. Calcific densities along the distal aspect of the stent possibly represent small residual stone fragments in the distal ureter. Phleboliths in the pelvis. Nonobstructive bowel gas pattern. No free air. No acute osseous injury. Impression: Left internal nephroureteral stent in place. No new radiographically apparent urinary calculi. Tiny calcific densities along the distal aspect of the stent possibly represent small residual stone fragments in the distal ureter. Signed by: Jen Romeo MD on 10/14/2019 10:38 AM
--- NOTE | 2019-10-14 22:08 | NUR ---
SPOKE TO MD RODRIGUEZ CONCERNING HR 57. OKAY TO HOLD METOPROLOL.
[2019-10-15] VITALS: BP 136/79
[2019-10-15 04:00] VITALS: BP 136/69
[2019-10-15] MEDS: SODIUM CHLORIDE 0.9% 1000ML 1,000 ML IV SCH (05:42)
[2019-10-15] MEDS ORDERED: IOPAMIDOL 300MG/ML 50ML INFUS..BTL IV ONE (06:06)
--- NOTE | 2019-10-15 06:17 | NUR ---
PT TRANSPORTED BY STRETCHER TO OR FOR PROCEDURE.
--- NOTE | 2019-10-15 07:02 | NUR ---
REPORT GIVEN TO DAYSHIFT NURSE. PATIENT OFF UNIT FOR PROCEDURE.
[2019-10-15] MEDS: FAMOTIDINE 20 MG TAB PO SCH ×2 (07:30→16:30)
--- NOTE | 2019-10-15 08:40 | NUR ---
back to rm [id number] no distress noted updated on poc vocied understanding, co pain will medicate with prn meds,ivf infusing to l fa 20g no ss of infiltration noted, no other co vocied call light in reach will continue to montior
[2019-10-15] MEDS: METOPROLOL TARTRATE 50 MG TAB PO SCH (08:48)
[2019-10-15] MEDS: MORPHINE SULFATE INJ 4 MG/ML INJ 1ML IV PRN ×2 (09:03→16:38)
[2019-10-15 09:04] VITALS: BP 154/94
[2019-10-15] MEDS: ONDANSETRON HCL INJ 2MG/ML 2ML 2 MG/ML VIAL IV PRN ×2 (09:04→16:39)
--- NOTE | 2019-10-15 09:26 | Operative Report ---
DATE OF PROCEDURE: 10/15/2019 SURGEON: Iggy Dyer MD PREOPERATIVE DIAGNOSES: 1. Indwelling left ureteral stent. 2. Left-sided hydronephrosis. 3. Left-sided ureteral calculi. POSTOPERATIVE DIAGNOSES: 1. Indwelling left ureteral stent. 2. Left-sided hydronephrosis. 3. Left-sided ureteral calculi. PROCEDURES: 1. Cystourethroscopy with complicated removal of left indwelling stent (entirely separate procedure for diagnosis of left indwelling ureteral stent). 2. Cystourethroscopy with complicated insertion of left indwelling ureteral stent (entirely separate procedure for diagnosis left hydronephrosis). 3. Left-sided ureteroscopy with laser lithotripsy (entirely separate procedure for the diagnosis of a large impacted obstructing left ureteral calculi causing colic). 4. Left-sided ureteroscopy with stone extraction (entirely separate procedure with explicit purpose of sending stones for analysis, not required for laser lithotripsy). 5. Supervision of fluoroscopy for both ureteroscopy and stent removal portion. ANESTHESIA: General. ESTIMATED BLOOD LOSS: Minimal. COMPLICATIONS: None. INDICATIONS FOR PROCEDURE: Ms. Hurt is a very pleasant 44-year-old female with a history of an indwelling ureteral stent and a large 7 x 7 mm distal ureteral calculus. She and I had a long discussion about alternatives, risks, and benefits of doing nothing, ureteroscopy, shock wave lithotripsy, percutaneous surgery, or open surgery. She voiced understanding of the options, alternatives, the risks, and benefits and she elected to proceed. PROCEDURE IN DETAIL: After informed consent was obtained, the patient was taken to the operative suite, placed supine on the operating table, underwent general anesthesia by the Anesthesia Service, placed in dorsal lithotomy position, and sterilely prepped and draped for cystoscopy. A 21-[place] cystoscope was inserted per urethra and normal urethra was noted. Panendoscopy of the bladder revealed no tumors, no stones. A stent was extruding through the left ureteral orifice. It was grasped and was removed. A guidewire was inserted . A guidewire was inserted under fluoroscopy, seen to coil in the level of renal pelvis. Ureteroscope was advanced to the level offending impacted stone and a large amount of edema and dense impaction utilizing 365 micron laser fiber and the dusting setting, the stone was dusted until the impacted portion stone could be removed. At which time, the fragmenting session was used. Several small fragments were extracted and passed off the table as specimens with explicit purpose of sending stones for analysis, not required for laser lithotripsy. At this time, advanced to proximal ureter. No other stones were seen. With the large amount of edema and impaction ureteral stricture formation, a 7 x 26 ureteral stent was deployed with coil in renal pelvis and a coil in the bladder. The string was left outside the meatus and taped to the inner thigh. The bladder was drained. The patient was awakened from anesthesia and transported to recovery room in excellent condition. Supervision of fluoroscopy and interpretation of retrograde pyelography: I was present for the entire procedure and supervised fluoroscopy. There was no radiologist present. The supervision for both ureteroscopic manipulation portion as well as stent removal portion. There were no retrograde pyelogram performed. MD YOSVANY Montgomery/MODL /[id number]
[2019-10-15 13:11] VITALS: BP 132/79
[2019-10-15 16:14] VITALS: BP 139/88
== END 2019-10-15 18:30 | disposition home or self-care (01) ==
LOC: ER 19:10 → ERHOLD 22:29 → MED/SURG 10-14 01:54
PROVIDERS: ADMIT Internal Medicine; ATTEND Internal Medicine
DX: N13.2 Hydronephrosis with renal and ureteral calculous obstruction (principal); E66.9 Obesity, unspecified; Z68.34 Body mass index [BMI] 34.0-34.9, adult; E87.6 Hypokalemia; Z96.0 Presence of urogenital implants; I10 Essential (primary) hypertension
CPT/HCPCS: 36415; 52310; 52325; 52332; 74018; 74176; 74420; 80053; 81001; 81025; 85025; 87086; 87635; 88300; 99284; C1758; C2617; G0378 ×3; J2270 ×3; J2405 ×3; J7030 ×3; Q9967

== ENCOUNTER 2019-10-27 18:07 | Observation (INO) | payer OTHER ==
[~2019-10-27] VITALS: Ht 167.6 cm; Wt 98.0 kg
[2019-10-27] MEDS ORDERED: KETOROLAC TROMETHAMINE 30 MG/ML VIAL IV STA (19:36)
[2019-10-27 20:19] LABS: BASOPHILS # (AUTO) 0.1 (0.0-0.1); BASOPHILS % 0.7 % (0.0-1.0); EOSINOPHILS # (AUTO) 0.3 (0.0-0.4); EOSINOPHILS % 2.9 % (0.0-6.0); HEMATOCRIT 42.7 % (34.2-44.1); LYMPHOCYTES # (AUTO) 3.3 (1.0-3.2); LYMPHOCYTES % 30.2 % (18.0-39.1); MEAN CORPUSCULAR HEMOGLOBIN 29.5 pg (28-32); MEAN CORPUSCULAR HGB CONC 32.8 g/dL (31-35); MEAN CORPUSCULAR VOLUME 89.9 fL (81-99); MONOCYTES # (AUTO) 0.6 (0.2-0.8); MONOCYTES % 5.2 % (4.4-11.3); NEUTROPHILS # (AUTO) 6.6 (2.1-6.9); NEUTROPHILS % 60.6 % (38.7-80.0); PLATELET COUNT 287 x10e3/uL (140-360); RED BLOOD COUNT 4.75 x10e6/uL (3.6-5.1); RED CELL DISTRIBUTION WIDTH 13.5 % (11.7-14.4)
[2019-10-27 20:22] LABS: BILIRUBIN,URINE NEGATIVE (NEGATIVE); CLARITY,URINE SL CLOUDY (CLEAR); COLOR,URINE YELLOW (YELLOW); KETONES,URINE NEGATIVE (NEGATIVE); LEUKOCYTE ESTERASE ,URINE SMALL (NEGATIVE); NITRITE,URINE NEGATIVE (NEGATIVE); PROTEIN,URINE DIPSTICK 1+ (NEGATIVE); URINE UROBILINOGEN 0.2 mg/dL (0.2 - 1)
[2019-10-27 20:30] LABS: WBC,URINE (MAN) >50 /HPF (0-5)
[2019-10-27 20:31] LABS: RBC,URINE >50 /HPF (0-5)
[2019-10-27 20:32] LABS: BACTERIA,URINE MODERATE /HPF; EPITHELIAL CELLS,URINE FEW /LPF
[2019-10-27 20:38] LABS: ALANINE AMINOTRANSFERASE 41 IU/L (0-55); ALBUMIN/GLOBULIN RATIO 1.1 (0.8-2.0); ALKALINE PHOSPHATASE 78 IU/L (40-150); ANION GAP 15.1 mmol/L (8-16); BLOOD UREA NITROGEN 11 mg/dL (7-26); BUN/CREATININE RATIO 14 (6-25); CALCIUM 10.3 mg/dL (8.4-10.2); CARBON DIOXIDE 26 mmol/L (22-29); CHLORIDE 104 mmol/L (98-107); CREATININE, SERUM 0.79 mg/dL (0.57-1.11); EST GLOMERULAR FILTRATION RATE > 60 ML/MIN (60-); GLUCOSE 97 mg/dL (74-118); POTASSIUM 4.1 mmol/L (3.5-5.1); SODIUM 141 mmol/L (136-145)
--- NOTE | 2019-10-27 21:11 | Emergency Department Note ---
History of Present Illnes History of Present Illness Chief Complaint: Abdominal Complaints History of Present Illness This is a 44 year old female HERE FOR BILATERAL LOWER ABDOMINAL PAIN, STATES HAS STENTS PLACED TWO WEEKS AGO AND ONE HAS DISLODGED, STATES IT IS HANGING OUT OF VAGINA. DENIES NAUSEA, VOMITING, DIARRHEA, FEVER. . Historian: Patient Arrival Mode: Car Onset (how long ago): hour(s) (3) Location: ABD Quality: PAIN Radiation: Reports non-radiation Severity: moderate Onset quality: sudden Duration (how long): hour(s) (3) Timing of current episode: constant Progression: unchanged Chronicity: new Context: Reports recent surgery (URETERAL STENT PLACEMENT 2 WEEKS AGO) Relieving factors: none Exacerbating factors: none Associated symptoms: Reports denies other symptoms Treatments prior to arrival: none Past Medical/Family History Physician Review I have reviewed the patient's past medical and family history. Any updates have been documented here. Past Medical History Recent Fever: No Clinical Suspicion of Infectio: No New/Unexplained Change in Ment: No Past Medical History: Hypertension, Cancer Past Surgical History: Cholecysctectomy, Hysterectomy, Other Surgery: tubes removed, surgery pinch nerve lower abd incision,gallbladder removed midlline incision, 1 and ceevical ca; frozen, 2 epotic , miscarriage at 6 months Social History Smoking Cessation: Never Smoker Alcohol Use: None Any Illegal Drug Use: No Other Last Tetanus: utd Review of Systems Review of Systems Constitutional: Reports no symptoms EENTM: Reports no symptoms Cardiovascular: Reports no symptoms Respiratory: Reports no symptoms Gastrointestinal: Reports as per HPI Genitourinary: Reports as per HPI Musculoskeletal: Reports no symptoms Integumentary: Reports no symptoms Neurological: Reports no symptoms Psychological: Reports no symptoms Endocrine: Reports no symptoms Hematological/Lymphatic: Reports no symptoms Physical Exam Related Data Allergies: Coded Allergies: No Known Allergies (Unverified , 10/01/19) Triage Vital Signs Vital Signs Date Time Temp Pulse Resp B/P (MAP) Pulse Ox O2 Delivery O2 Flow Rate FiO2 10/27/19 18:51 98.2 73 16 158/105 98 Vital signs reviewed: Yes Physical Exam CONSTITUTIONAL Constitutional: Present well-developed, Present well-nourished HENT HENT: Present normocephalic, Present atraumatic, Present oropharynx clear/moist, Present nose normal HENT L/R: Present left ext ear normal, Present right ext ear normal EYES Eyes: Reports PERRL, Reports conjunctivae normal NECK Neck: Present ROM normal PULMONARY Pulmonary: Present effort normal, Present breath sounds normal CARDIOVASCULAR Cardiovascular: Present regular rhythm, Present heart sounds normal, Present capillary refill normal, Present normal rate GASTROINTESTINAL Abdominal: Present soft, Present bowel sounds normal, Present tender (MILD ACROSS LOWER ABDOMEN) GENITOURINARY Genitourinary: Present exam deferred SKIN Skin: Present warm, Present dry MUSCULOSKELETAL Musculoskeletal: Present ROM normal NEUROLOGICAL Neurological: Present alert, Present oriented x 3, Present no gross motor or s ensory deficits PSYCHOLOGICAL Psychological: Present mood/affect normal, Present judgement normal Results Laboratory Result Diagram: 10/27/19195810/27/191958 Laboratory Laboratory Tests Test 10/27/19 19:59 White Blood Count 10.85 x10e3/uL (4.8-10.8) Red Blood Count 4.75 x10e6/uL (3.6-5.1) Hemoglobin 14.0 g/dL (12.0-16.0) Hematocrit 42.7 % (34.2-44.1) Mean Corpuscular Volume 89.9 fL (81-99) Mean Corpuscular Hemoglobin 29.5 pg (28-32) Mean Corpuscular Hemoglobin Concent 32.8 g/dL (31-35) Red Cell Distribution Width 13.5 % (11.7-14.4) Platelet Count 287 x10e3/uL (140-360) Neutrophils (%) (Auto) 60.6 % (38.7-80.0) Lymphocytes (%) (Auto) 30.2 % (18.0-39.1) Monocytes (%) (Auto) 5.2 % (4.4-11.3) Eosinophils (%) (Auto) 2.9 % (0.0-6.0) Basophils (%) (Auto) 0.7 % (0.0-1.0) Neutrophils # (Auto) 6.6 (2.1-6.9) Lymphocytes # (Auto) 3.3 (1.0-3.2) Monocytes # (Auto) 0.6 (0.2-0.8) Eosinophils # (Auto) 0.3 (0.0-0.4) Basophils # (Auto) 0.1 (0.0-0.1) Absolute Immature Granulocyte (auto 0.04 x10e3/uL (0-0.1) Urine Color Yellow (YELLOW) Urine Clarity Sl cloudy (CLEAR) Urine pH 5.5 (5 - 7) Urine Specific [place] 1.020 (1.010-1.025) Urine Protein 1+ (NEGATIVE) Urine Glucose (UA) Negative (NEGATIVE) Urine Ketones Negative (NEGATIVE) Urine Blood Moderate (NEGATIVE) Urine Nitrite Negative (NEGATIVE) Urine Bilirubin Negative (NEGATIVE) Urine Urobilinogen 0.2 mg/dL (0.2 - 1) Urine Leukocyte Esterase Small (NEGATIVE) Urine RBC >50 /HPF (0-5) Urine WBC >50 /HPF (0-5) Urine Epithelial Cells Few /LPF (NONE) Urine Bacteria Moderate /HPF (NONE) Sodium Level 141 mmol/L (136-145) Potassium Level 4.1 mmol/L (3.5-5.1) Chloride Level 104 mmol/L (98-107) Carbon Dioxide Level 26 mmol/L (22-29) Anion Gap 15.1 mmol/L (8-16) Blood Urea Nitrogen 11 mg/dL (7-26) Creatinine 0.79 mg/dL (0.57-1.11) Estimat Glomerular Filtration Rate > 60 ML/MIN (60-) BUN/Creatinine Ratio 14 (6-25) Glucose Level 97 mg/dL (74-118) Calcium Level 10.3 mg/dL (8.4-10.2) Total Bilirubin 0.6 mg/dL (0.2-1.2) Aspartate Amino Transf (AST/SGOT) 21 IU/L (5-34) Alanine Aminotransferase (ALT/SGPT) 41 IU/L (0-55) Alkaline Phosphatase 78 IU/L (40-150) Total Protein 7.6 g/dL (6.5-8.1) Albumin 4.0 g/dL (3.5-5.0) Globulin 3.6 g/dL (2.3-3.5) Albumin/Globulin Ratio 1.1 (0.8-2.0) Human Chorionic Gonadotropin, Qual Negative (NEGATIVE) Lab results reviewed: Yes Imaging Imaging results reviewed: Yes Impressions IMPRESSION: CT ABD/PELVIS 1. Interval caudal migration of the previously visualized left double-J internal ureteral stent, which now has its proximal pigtail at the level of the mid left ureter and distal pigtail outside the urethra/external. 2. Associated moderate left hydronephrosis, proximal hydroureter and mild left periureteral stranding. No left renal or ureteral calculi 3. Stable right nonobstructing calculi. 4. Stable 2.3 cm benign, lipid rich left adrenal adenoma. No further diagnostic or follow-up imaging is indicated. 5. Hepatic steatosis. Signed by: Dr. Raul Manrique M.D. on 10/27/2019 9:44 PM Assessment & Plan Medical Decision Making MDM PT WITH ABD PAIN AND URETERAL STENT PARTIALLY HANGING OUT OF VAGINA, I SPOKE WITH DR HENAO WHO PLACE THE STENT, WANTS BASIC LABS, UA AND CT ABD/PELVIS TO EVAL FOR UTI, STENT DISPLACEMENT, HYDRONEPHROSIS, I SPOKE WITH DR HENAO AND DR RODRIGUEZ, ADMIT TO OBS Assessment & Plan Final Impression: (1) Displacement of ureteral stent (2) Complicated UTI (urinary tract infection) Depart Disposition: ADMITTED Last Vital Signs Date Time Temp Pulse Resp B/P (MAP) Pulse Ox O2 Delivery O2 Flow Rate FiO2 10/27/19 18:51 98.2 73 16 158/105 98 Home Meds Active Scripts Metoprolol Tartrate (METOPROLOL TARTRATE) 50 Mg Tablet, 50 MG PO Q12HR for 15 Days Prov:WESLEY RODRIGUEZ MD 10/04/19 Reported Medications Ondansetron Hcl* (ZOFRAN*) 4 Mg Tablet, 4 MG PO Q6H PRN for NAUSEA 10/04/19 Acetaminophen With Codeine (TYLENOL WITH CODEINE #3 TABLET) 1 Each Tablet, 300 MG PO Q6H PRN for Mild Pain (1-3) or Fever>100.8, TAB 10/04/19 Medications in the ED Ketorolac Tromethamine 30 mg ONCE STAT IV ; Start 10/27/19 at 19:36; Stop 10/27/19 at 19:37; Status DC INEZ BERUMEN MD Oct 27, 2019 21:10
--- NOTE | 2019-10-27 21:47 | Diagnostic Imaging Report ---
EXAMINATION: CT of the abdomen and pelvis without contrast. TECHNIQUE: Spiral CT images of the abdomen and pelvis were performed from the lung bases to the lesser trochanters. No intravenous contrast was given per renal stone protocol. Coronal and sagittal reformatted images were obtained. COMPARISON: CT abdomen and pelvis without contrast 10/13/2019 CLINICAL HISTORY:Stent out, evaluate for Hydronephrosis and ureteral stent displacement DISCUSSION: ABSENCE OF INTRAVENOUS CONTRAST DECREASES SENSITIVITY FOR DETECTION OF FOCAL LESIONS AND VASCULAR PATHOLOGY. ABDOMEN/PELVIS: LOWER THORAX: Stable linear opacities in the lateral right lower lobe and lingula likely representing subsegmental atelectasis or scarring. HEPATOBILIARY: Decreased attenuation of the hepatic parenchyma consistent with steatosis. No focal lesions. No intra or extrahepatic biliary ductal dilation. GALLBLADDER: Not visualized SPLEEN: No splenomegaly. PANCREAS: No focal masses or ductal dilatation. ADRENALS: Stable 2.3 cm benign, lipid rich left adrenal adenoma. Right adrenal gland is unremarkable. KIDNEYS/URETERS: Interval caudal migration of the previously visualized left double-J internal ureteral stent, which now has its proximal pigtail at the level of the mid left ureter and distal pigtail outside the urethra/external. There is associated moderate left hydronephrosis and proximal hydroureter, as well as mild left periureteral stranding. No left renal or ureteral calculi. Stable punctate nonobstructing calculus in the right superior to mid aspect (series 3, image 68). Stable punctate nonobstructing calculus in the right interpolar region (series 3, image 82). Stable 2 mm nonobstructing calculus in the right inferior pole (series 3, image 89) . No right ureteral calculi, hydronephrosis or obstruction. No contour abnormalities. PELVIC ORGANS/BLADDER: Bladder is grossly unremarkable, without wall thickening. Uterus is absent. PERITONEUM/RETROPERITONEUM: No free air or fluid. LYMPH NODES: No intra-abdominal,retroperitoneal, pelvic or inguinal lymphadenopathy. VESSELS: Unremarkable for noncontrast exam. GI TRACT: No bowel dilation or evidence of obstruction. Appendix is well identified and normal in caliber. BONES AND SOFT TISSUES: No aggressive lytic suspicious sclerotic lesions facet hypertrophy L4-L5. No interval change in the lower anterior abdominal wall subcutaneous stranding/soft tissue thickening. IMPRESSION: 1. Interval caudal migration of the previously visualized left double-J internal ureteral stent, which now has its proximal pigtail at the level of the mid left ureter and distal pigtail outside the urethra/external. 2. Associated moderate left hydronephrosis, proximal hydroureter and mild left periureteral stranding. No left renal or ureteral calculi 3. Stable right nonobstructing calculi. 4. Stable 2.3 cm benign, lipid rich left adrenal adenoma. No further diagnostic or follow-up imaging is indicated. 5. Hepatic steatosis. Signed by: Dr. Raul Manrique M.D. on 10/27/2019 9:44 PM
[2019-10-27] MEDS ORDERED: ONDANSETRON HCL INJ 2MG/ML 2ML 2 MG/ML VIAL IV PRN (22:45)
[2019-10-27] MEDS: SODIUM CHLORIDE 0.9% 1000ML 1,000 ML IV SCH (23:17)
[2019-10-27] MEDS: MORPHINE SULFATE INJ 4 MG/ML INJ 1ML IV PRN (23:17)
[2019-10-27] MEDS: CEFTRIAXONE SOD 1 GM/NS 50 ML 50 ML IV SCH (23:17)
[2019-10-28] VITALS (9 sets, daily range): BP systolic 107–141; BP diastolic 60–88
[2019-10-28] MEDS ORDERED: OXYBUTYNIN CHLOR5 MG PO (00:30)
--- NOTE | 2019-10-28 06:40 | NUR ---
H&P cc: difficulty urinating HPI: 44yoF, PCP does not recall name, recently had stent removed/replaced, now with pain, found to have displaced stent and UTI. PMH: urinary stones, Left ureterolithiasis, right hydroureteronephrosis, UTI, Right nephrolithiasis, Hypokalemia PShx: cholecystectomy, hysterectomy Allergies; see emr Fh/SH; ; no cigs meds; see MAR ROS: no f/cp/sob/skin rash. no cp/sob/dizziness/vision changes/confusion/focal limb weakness v/s; revd PE tired appearing anicteric ns1s2 mod bs MID-ABDOMINAL TENDERNESS; LOWER ABDOMINAL TENDERNESS; no leg edema skin dry n. affect a&ox3; sanchez labs/meds revd A/P: 44yoF Left ureterolithiasis- IVF; urology consult Right hydronephrosis- urology consult. Right nephrolithiasis- as above Obesity- caloric restriction needed; hba1c 5.3 inMay 2019 BMI 34 Prop: scd DIspo; urology consultation; Reyes Forbes MD, PhD.
[2019-10-28 06:51] LABS: ALANINE AMINOTRANSFERASE 34 IU/L (0-55); ALBUMIN 3.2 g/dL (3.5-5.0); ALBUMIN/GLOBULIN RATIO 1.1 (0.8-2.0); ALKALINE PHOSPHATASE 64 IU/L (40-150); ANION GAP 9.7 mmol/L (8-16); BLOOD UREA NITROGEN 10 mg/dL (7-26); BUN/CREATININE RATIO 13 (6-25); CARBON DIOXIDE 27 mmol/L (22-29); CHLORIDE 107 mmol/L (98-107); CREATININE, SERUM 0.78 mg/dL (0.57-1.11); EST GLOMERULAR FILTRATION RATE > 60 ML/MIN (60-); GLUCOSE 98 mg/dL (74-118); POTASSIUM 3.7 mmol/L (3.5-5.1); SODIUM 140 mmol/L (136-145)
[2019-10-28] MEDS: MORPHINE SULFATE INJ 4 MG/ML INJ 1ML IV PRN ×2 (07:02→15:13)
[2019-10-28] MEDS: SODIUM CHLORIDE 0.9% 1000ML 1,000 ML IV SCH ×3 (07:03→15:14)
--- NOTE | 2019-10-28 07:05 | NUR ---
REPORT GIVEN TO [facility] NURSE. AAOX3. RESTING IN BED. NO SIGNS OF IV INFILTRATION. BED LOCKED AND IN LOW POSITION. CALL LIGHT WITHIN REACH.
--- NOTE | 2019-10-28 07:45 | NUR ---
DR HENAO HERE DCD STENT AT BEDSIDE,TOLERATED WELL.
[2019-10-28 07:48] LABS: BASOPHILS # (AUTO) 0.1 (0.0-0.1); BASOPHILS % 0.6 % (0.0-1.0); EOSINOPHILS # (AUTO) 0.3 (0.0-0.4); EOSINOPHILS % 3.3 % (0.0-6.0); HEMOGLOBIN 12.3 g/dL (12.0-16.0); LYMPHOCYTES # (AUTO) 2.8 (1.0-3.2); LYMPHOCYTES % 33.9 % (18.0-39.1); MEAN CORPUSCULAR HEMOGLOBIN 29.1 pg (28-32); MEAN CORPUSCULAR HGB CONC 32.4 g/dL (31-35); MEAN CORPUSCULAR VOLUME 89.8 fL (81-99); MONOCYTES # (AUTO) 0.6 (0.2-0.8); MONOCYTES % 6.6 % (4.4-11.3); NEUTROPHILS # (AUTO) 4.6 (2.1-6.9); NEUTROPHILS % 55.4 % (38.7-80.0); PLATELET COUNT 228 x10e3/uL (140-360); RED BLOOD COUNT 4.23 x10e6/uL (3.6-5.1); RED CELL DISTRIBUTION WIDTH 13.6 % (11.7-14.4)
[2019-10-28] MEDS ORDERED: DOCUSATE SODIUM 100 MG CAP PO PRN (08:30)
[2019-10-28] MEDS ORDERED: ONDANSETRON HCL INJ 2MG/ML 2ML 2 MG/ML VIAL IV PRN (08:30)
[2019-10-28] MEDS ORDERED: ZOLPIDEM TARTRATE 5 MG TAB PO PRN (08:30)
[2019-10-28] MEDS ORDERED: ACETAMINOPHEN 325 MG TAB PO PRN (08:30)
[2019-10-28] MEDS: METOPROLOL TARTRATE 50 MG TAB PO SCH ×2 (12:00→21:00)
--- NOTE | 2019-10-28 15:13 | NUR ---
PT C/O HEADACHE MEDICATED
--- NOTE | 2019-10-28 17:24 | NUR ---
PT IN BED RESTING NO FUTHER C/O PAIN.
[2019-10-28] MEDS: CEFTRIAXONE SOD 1 GM/NS 50 ML 50 ML IV SCH (23:45)
[2019-10-29] VITALS (7 sets, daily range): BP systolic 116–143; BP diastolic 65–83
--- NOTE | 2019-10-29 05:29 | NUR ---
IM- progress note O/N see below ROS: no f/cp/sob/skin rash. no cp/sob/dizziness/vision changes/confusion/focal limb weakness v/s; revd PE tired appearing anicteric ns1s2 mod bs MID-ABDOMINAL TENDERNESS; LOWER ABDOMINAL TENDERNESS; no leg edema skin dry n. affect a&ox3; sanchez labs/meds revd A/P: 44yoF Left ureterolithiasis- IVF; urology consult Right hydronephrosis- urology consult. Right nephrolithiasis- as above Obesity- caloric restriction needed; hba1c 5.3 inMay 2019 BMI 34 Prop: scd DIspo; urology consultation; 6-25 f/u labs; f/u urology continue IV abx; Reyes Forbes MD, PhD.
--- NOTE | 2019-10-29 07:04 | NUR ---
REPORT GIVEN TO [facility] NURSE. RESTING IN BED. AAOX3. NO SIGNS IV INFILTRATION. BED LOCKED AND IN LOW POSITION. CALL LIGHT WITHIN REACH.
--- NOTE | 2019-10-29 07:15 | NUR ---
PT UP IN BED NO DISTRESS NOTED,DENIES PAIN.
[2019-10-29] MEDS: METOPROLOL TARTRATE 50 MG TAB PO SCH ×2 (08:57→21:12)
[2019-10-29] MEDS: SODIUM CHLORIDE 0.9% 1000ML 1,000 ML IV SCH ×2 (13:39→22:45)
[2019-10-29] MEDS: MORPHINE SULFATE INJ 4 MG/ML INJ 1ML IV PRN ×3 (17:13→23:54)
--- NOTE | 2019-10-29 17:35 | NUR ---
PT C/O PAIN ,MEDICATED,
[2019-10-29] MEDS ORDERED: FLUCONAZOLE 200 MG/100 ML 100 ML IV SCH (18:30)
[2019-10-29] MEDS: CEFTRIAXONE SOD 1 GM/NS 50 ML 50 ML IV SCH (23:00)
[2019-10-30] VITALS: BP 146/85
[2019-10-30 04:00] VITALS: BP 124/92
[2019-10-30] MEDS ORDERED: KEFLEX500 MG PO (05:33)
[2019-10-30] MEDS: SODIUM CHLORIDE 0.9% 1000ML 1,000 ML IV SCH (07:36)
[2019-10-30] MEDS ORDERED: FLUCONAZOLE 200 MG/100 ML 100 ML IV ONE (07:45)
[2019-10-30 07:48] VITALS: BP 138/81
[2019-10-30 08:11] VITALS: BP 138/81
[2019-10-30] MEDS ORDERED: DIFLUCAN100 MG PO (08:20)
[2019-10-30] MEDS: METOPROLOL TARTRATE 50 MG TAB PO SCH (08:30)
[2019-10-30] MEDS ORDERED: ONDANSETRON HCL 4 MG ORAL DISINTEGRATING TAB PO PRN (08:45)
== END 2019-10-30 09:17 | disposition home or self-care (01) ==
LOC: ER 18:07 → ERHOLD 22:39 → MED/SURG 10-28 00:17
PROVIDERS: ADMIT Internal Medicine; ATTEND Internal Medicine
DX: T83.122A Displacement of indwelling ureteral stent, initial encounter (principal); N13.6 Pyonephrosis; E66.9 Obesity, unspecified; Z68.34 Body mass index [BMI] 34.0-34.9, adult; B37.49 Other urogenital candidiasis
CPT/HCPCS: 36415; 74176; 80053; 81001; 84702; 85025; 87086; 87635; 99284; G0378; J0696; J1450; J1885; J2270; J2405; J7030

== ENCOUNTER 2020-07-14 08:12 | Emergency (ER) | payer OTHER ==
[~2020-07-14] VITALS: Ht 167.6 cm; Wt 98.0 kg
[~2020-07-14 08:12] MED LIST changes: +DIFLUCAN100 MG PO; +OXYBUTYNIN CHLOR5 MG PO
[2020-07-14] MEDS ORDERED: KETOROLAC TROMETHAMINE 30 MG/ML VIAL IV STA (08:24)
[2020-07-14] MEDS ORDERED: ONDANSETRON HCL INJ 2MG/ML 2ML 2 MG/ML VIAL IV STA (08:24)
[2020-07-14] MEDS ORDERED: TAMSULOSIN HCL 0.4 MG CAP PO SCH (08:30)
[2020-07-14] MEDS ORDERED: SODIUM CHLORIDE 0.9% 1000ML 1,000 ML IV SCH (08:30)
[2020-07-14] MEDS ORDERED: MORPHINE SULFATE INJ 4 MG/ML INJ 1ML IV PRN (08:30)
[2020-07-14 08:35] LABS: BASOPHILS # (AUTO) 0.1 (0.0-0.1); BASOPHILS % 0.9 % (0.0-1.0); EOSINOPHILS # (AUTO) 0.2 (0.0-0.4); EOSINOPHILS % 2.7 % (0.0-6.0); HEMATOCRIT 43.6 % (34.2-44.1); HEMOGLOBIN 14.6 g/dL (12.0-16.0); LYMPHOCYTES # (AUTO) 2.7 (1.0-3.2); LYMPHOCYTES % 38.3 % (18.0-39.1); MEAN CORPUSCULAR HEMOGLOBIN 30.2 pg (28-32); MEAN CORPUSCULAR HGB CONC 33.5 g/dL (31-35); MEAN CORPUSCULAR VOLUME 90.3 fL (81-99); MONOCYTES # (AUTO) 0.4 (0.2-0.8); MONOCYTES % 5.6 % (4.4-11.3); NEUTROPHILS # (AUTO) 3.6 (2.1-6.9); NEUTROPHILS % 52.2 % (38.7-80.0); PLATELET COUNT 238 x10e3/uL (140-360); RED BLOOD COUNT 4.83 x10e6/uL (3.6-5.1); RED CELL DISTRIBUTION WIDTH 13.4 % (11.7-14.4)
[2020-07-14 08:41] LABS: CLARITY,URINE CLEAR (CLEAR); COLOR,URINE YELLOW (YELLOW); KETONES,URINE NEGATIVE (NEGATIVE); LEUKOCYTE ESTERASE ,URINE NEGATIVE (NEGATIVE); NITRITE,URINE NEGATIVE (NEGATIVE); PROTEIN,URINE DIPSTICK NEGATIVE (NEGATIVE); URINE UROBILINOGEN 0.2 mg/dL (0.2 - 1)
[2020-07-14 08:56] LABS: ALANINE AMINOTRANSFERASE 63 IU/L (0-55); ALBUMIN/GLOBULIN RATIO 1.2 (0.8-2.0); ALKALINE PHOSPHATASE 87 IU/L (40-150); ANION GAP 13.6 mmol/L (8-16); BLOOD UREA NITROGEN 9 mg/dL (7-26); BUN/CREATININE RATIO 13 (6-25); CALCIUM 9.5 mg/dL (8.4-10.2); CARBON DIOXIDE 24 mmol/L (22-29); CHLORIDE 106 mmol/L (98-107); CREATININE, SERUM 0.68 mg/dL (0.57-1.11); EST GLOMERULAR FILTRATION RATE > 60 ML/MIN (60-); GLUCOSE 106 mg/dL (74-118); POTASSIUM 3.6 mmol/L (3.5-5.1); SODIUM 140 mmol/L (136-145)
[2020-07-14 09:04] LABS: BACTERIA,URINE MODERATE /HPF; EPITHELIAL CELLS,URINE RARE /LPF; WBC,URINE (MAN) 0-5 /HPF (0-5)
[2020-07-14] MEDS ORDERED: BACTRIM DS TAB1 EACH PO (10:15)
[2020-07-14] MEDS ORDERED: NAPROXEN250 MG PO (10:15)
[2020-07-14] MEDS ORDERED: FLOMAX0.4 MG PO (10:16)
[2020-07-14 10:30] VITALS: BP 132/94
== END 2020-07-14 10:34 | disposition home or self-care (01) ==
LOC: ER 08:20
DX: R31.9 Hematuria, unspecified (principal); R11.0 Nausea; M54.5 Low back pain; I10 Essential (primary) hypertension
CPT/HCPCS: 36415; 74176; 80053; 81001; 84702; 85025; 99284; J1885; J2270; J2405; J7030

== ENCOUNTER 2020-12-21 06:25 | Observation (INO) | payer OTHER ==
[~2020-12-21] VITALS: Ht 167.6 cm; Wt 98.0 kg
[~2020-12-21 06:25] MED LIST changes: +BACTRIM DS TAB1 EACH PO; +FLOMAX0.4 MG PO; +NAPROXEN250 MG PO
[2020-12-21] MEDS ORDERED: KETOROLAC TROMETHAMINE 30 MG/ML VIAL IV STA (06:45)
[2020-12-21] MEDS ORDERED: FENTANYL CITRATE/PF 100MCG/2 ML INJ IV ONE (06:45)
[2020-12-21] MEDS ORDERED: ONDANSETRON HCL INJ 2MG/ML 2ML 2 MG/ML VIAL IV STA (06:45)
[2020-12-21 07:06] LABS: BASOPHILS # (AUTO) 0.1 (0.0-0.1); BASOPHILS % 0.9 % (0.0-1.0); EOSINOPHILS # (AUTO) 0.2 (0.0-0.4); EOSINOPHILS % 3.7 % (0.0-6.0); HEMATOCRIT 45.2 % (34.2-44.1); HEMOGLOBIN 14.8 g/dL (12.0-16.0); LYMPHOCYTES # (AUTO) 2.5 (1.0-3.2); LYMPHOCYTES % 38.7 % (18.0-39.1); MEAN CORPUSCULAR HEMOGLOBIN 29.7 pg (28-32); MEAN CORPUSCULAR HGB CONC 32.7 g/dL (31-35); MEAN CORPUSCULAR VOLUME 90.6 fL (81-99); MONOCYTES # (AUTO) 0.4 (0.2-0.8); MONOCYTES % 6.8 % (4.4-11.3); NEUTROPHILS # (AUTO) 3.2 (2.1-6.9); NEUTROPHILS % 49.7 % (38.7-80.0); PLATELET COUNT 232 x10e3/uL (140-360); RED BLOOD COUNT 4.99 x10e6/uL (3.6-5.1); RED CELL DISTRIBUTION WIDTH 13.4 % (11.7-14.4)
[2020-12-21 07:14] LABS: CLARITY,URINE CLOUDY (CLEAR); COLOR,URINE RED (YELLOW); KETONES,URINE 1+ (NEGATIVE); LEUKOCYTE ESTERASE ,URINE LARGE (NEGATIVE); NITRITE,URINE NEGATIVE (NEGATIVE); PROTEIN,URINE DIPSTICK >=300 (NEGATIVE); URINE UROBILINOGEN 1 mg/dL (0.2 - 1)
[2020-12-21 07:28] LABS: ALBUMIN 3.8 g/dL (3.5-5.0); ALBUMIN/GLOBULIN RATIO 1.1 (0.8-2.0); ANION GAP 16.6 mmol/L (8-16); CALCIUM 10.1 mg/dL (8.4-10.2); CREATININE, SERUM 0.7 mg/dL (0.57-1.11); POTASSIUM 3.6 mmol/L (3.5-5.1)
[2020-12-21 07:31] LABS: EPITHELIAL CELLS,URINE RARE /LPF; RBC,URINE >50 /HPF (0-5); WBC,URINE (MAN) 0-5 /HPF (0-5)
[2020-12-21 07:32] LABS: BACTERIA,URINE MANY /HPF
[2020-12-21] MEDS ORDERED: CEFTRIAXONE 1 GM VIAL IV SCH (08:15)
[2020-12-21] MEDS ORDERED: SODIUM CHLORIDE 0.9% 1000ML 1,000 ML IV SCH (08:15)
[2020-12-21] MEDS: CEFTRIAXONE 1 GM in SODIUM CHLORIDE 0.9% 50ML 50 ML IV SCH (08:30)
[2020-12-21] MEDS: SODIUM CHLORIDE 0.9% 1000ML 1,000 ML IV SCH ×2 (09:31→18:10)
[2020-12-21] MEDS ORDERED: HYDRALAZINE HCL 20 MG/ML VIAL IV PRN (14:00)
[2020-12-21] MEDS ORDERED: ACETAMINOPHEN 325 MG TAB PO PRN (14:00)
[2020-12-21 16:07] VITALS: BP 122/89
[2020-12-21 17:00] VITALS: BP 122/89
[2020-12-21] MEDS: MORPHINE SULFATE INJ 4 MG/ML INJ 1ML IV PRN (18:10)
[2020-12-21] MEDS: ONDANSETRON HCL INJ 2MG/ML 2ML 2 MG/ML VIAL IV PRN (18:10)
[2020-12-21] MEDS: OXYBUTYNIN CHLORIDE 5 MG TAB PO SCH (18:10)
[2020-12-21 20:00] VITALS: BP 148/97
[2020-12-21] MEDS: METOPROLOL TARTRATE 50 MG TAB PO SCH (21:00)
[2020-12-22] VITALS (8 sets, daily range): BP systolic 115–160; BP diastolic 61–102
[2020-12-22] MEDS: SODIUM CHLORIDE 0.9% 1000ML 1,000 ML IV SCH ×4 (01:15→23:23)
[2020-12-22 04:46] LABS: BASOPHILS # (AUTO) 0.1 (0.0-0.1); BASOPHILS % 0.8 % (0.0-1.0); EOSINOPHILS # (AUTO) 0.2 (0.0-0.4); EOSINOPHILS % 3.4 % (0.0-6.0); HEMATOCRIT 40.6 % (34.2-44.1); HEMOGLOBIN 13.4 g/dL (12.0-16.0); LYMPHOCYTES # (AUTO) 2.4 (1.0-3.2); MEAN CORPUSCULAR HEMOGLOBIN 30.2 pg (28-32); MEAN CORPUSCULAR VOLUME 91.4 fL (81-99); MONOCYTES # (AUTO) 0.4 (0.2-0.8); MONOCYTES % 7.1 % (4.4-11.3); NEUTROPHILS # (AUTO) 2.9 (2.1-6.9); NEUTROPHILS % 48.5 % (38.7-80.0); PLATELET COUNT 211 x10e3/uL (140-360); RED BLOOD COUNT 4.44 x10e6/uL (3.6-5.1); RED CELL DISTRIBUTION WIDTH 13.5 % (11.7-14.4)
[2020-12-22] MEDS: ACETAMINOPHEN/CODEINE 300MG - 30MG TAB PO PRN ×2 (04:52→22:08)
[2020-12-22 05:26] LABS: ANION GAP 15.5 mmol/L (8-16); CALCIUM 9.2 mg/dL (8.4-10.2); CREATININE, SERUM 0.71 mg/dL (0.57-1.11); POTASSIUM 3.5 mmol/L (3.5-5.1)
[2020-12-22] MEDS: METOPROLOL TARTRATE 50 MG TAB PO SCH ×2 (09:40→21:00)
[2020-12-22] MEDS: TAMSULOSIN HCL 0.4 MG CAP PO SCH (09:40)
[2020-12-22] MEDS: OXYBUTYNIN CHLORIDE 5 MG TAB PO SCH ×2 (09:40→16:23)
[2020-12-22] MEDS: CEFTRIAXONE 1 GM in SODIUM CHLORIDE 0.9% 50ML 50 ML IV SCH (09:40)
[2020-12-22] MEDS: CARVEDILOL 3.125 MG TAB PO SCH (23:16)
[2020-12-23] VITALS: BP 141/81
[2020-12-23 04:00] VITALS: BP 132/89
[2020-12-23 04:54] LABS: BASOPHILS # (AUTO) 0.1 (0.0-0.1); BASOPHILS % 1.1 % (0.0-1.0); EOSINOPHILS # (AUTO) 0.2 (0.0-0.4); EOSINOPHILS % 3.5 % (0.0-6.0); HEMATOCRIT 39.9 % (34.2-44.1); HEMOGLOBIN 13.3 g/dL (12.0-16.0); LYMPHOCYTES # (AUTO) 2.9 (1.0-3.2); LYMPHOCYTES % 44.4 % (18.0-39.1); MEAN CORPUSCULAR HGB CONC 33.3 g/dL (31-35); MEAN CORPUSCULAR VOLUME 90.1 fL (81-99); MONOCYTES # (AUTO) 0.4 (0.2-0.8); MONOCYTES % 6.4 % (4.4-11.3); NEUTROPHILS # (AUTO) 2.9 (2.1-6.9); NEUTROPHILS % 44.1 % (38.7-80.0); PLATELET COUNT 209 x10e3/uL (140-360); RED BLOOD COUNT 4.43 x10e6/uL (3.6-5.1); RED CELL DISTRIBUTION WIDTH 13.3 % (11.7-14.4)
[2020-12-23 05:35] LABS: ALBUMIN 3.2 g/dL (3.5-5.0); ALBUMIN/GLOBULIN RATIO 1.1 (0.8-2.0); ANION GAP 12.3 mmol/L (8-16); CALCIUM 8.9 mg/dL (8.4-10.2); CREATININE, SERUM 0.69 mg/dL (0.57-1.11); POTASSIUM 3.3 mmol/L (3.5-5.1)
[2020-12-23] MEDS ORDERED: IOPAMIDOL 300MG/ML 50ML INFUS..BTL IV ONE (06:36)
[2020-12-23] MEDS: ONDANSETRON HCL INJ 2MG/ML 2ML 2 MG/ML VIAL IV PRN (08:40)
[2020-12-23] MEDS: MORPHINE SULFATE INJ 4 MG/ML INJ 1ML IV PRN (08:40)
[2020-12-23] MEDS: CEFTRIAXONE 1 GM in SODIUM CHLORIDE 0.9% 50ML 50 ML IV SCH (09:01)
[2020-12-23] MEDS: TAMSULOSIN HCL 0.4 MG CAP PO SCH (09:01)
[2020-12-23] MEDS: OXYBUTYNIN CHLORIDE 5 MG TAB PO SCH (09:01)
[2020-12-23] MEDS: CARVEDILOL 3.125 MG TAB PO SCH (09:02)
[2020-12-23 12:43] VITALS: BP 151/106
[2020-12-23 12:44] VITALS: BP 152/110
[2020-12-23] MEDS ORDERED: COREG3.125 MG PO (13:52)
[2020-12-23] MEDS ORDERED: POTASSIUM BICARBONATE/CIT AC 20 MEQ TABLET.EFF PO ONE (14:30)
[2020-12-23 17:04] VITALS: BP 129/82
[2020-12-23 17:05] VITALS: BP 130/83
== END 2020-12-23 18:45 | disposition home or self-care (01) ==
LOC: ER 07:44 → ERHOLD 08:06 → IMCU 15:20
PROVIDERS: ADMIT Internal Medicine; ATTEND Internal Medicine
DX: N13.2 Hydronephrosis with renal and ureteral calculous obstruction (principal); Z87.442 Personal history of urinary calculi; I10 Essential (primary) hypertension; Z90.49 Acquired absence of other specified parts of digestive tract; Z82.49 Family history of ischemic heart disease and other diseases of the circulatory system; Z83.3 Family history of diabetes mellitus; E66.9 Obesity, unspecified; R94.5 Abnormal results of liver function studies; B94.8 Sequelae of other specified infectious and parasitic diseases; U07.1 COVID-19; Z68.34 Body mass index [BMI] 34.0-34.9, adult
CPT/HCPCS: 36415; 50590; 74176; 80048; 80053; 81001; 84702; 85025; 87086; 99284; C1758; C1769; C2617; G0378; J0360; J0696; J1885; J2270; J2405; J3010; J7030; U0002

== ENCOUNTER 2021-01-04 15:56 | Inpatient (IN) | payer OTHER ==
[~2021-01-04] VITALS: Ht 167.6 cm; Wt 98.0 kg
[~2021-01-04 15:56] MED LIST changes: +COREG3.125 MG PO
[2021-01-04 16:56] LABS: BASOPHILS # (AUTO) 0.1 (0.0-0.1); BASOPHILS % 0.9 % (0.0-1.0); EOSINOPHILS # (AUTO) 0.3 (0.0-0.4); EOSINOPHILS % 3.2 % (0.0-6.0); HEMATOCRIT 42.3 % (34.2-44.1); LYMPHOCYTES # (AUTO) 2.8 (1.0-3.2); LYMPHOCYTES % 33.8 % (18.0-39.1); MEAN CORPUSCULAR HEMOGLOBIN 29.8 pg (28-32); MEAN CORPUSCULAR HGB CONC 33.1 g/dL (31-35); MONOCYTES # (AUTO) 0.4 (0.2-0.8); MONOCYTES % 4.5 % (4.4-11.3); NEUTROPHILS # (AUTO) 4.7 (2.1-6.9); NEUTROPHILS % 57.2 % (38.7-80.0); PLATELET COUNT 267 x10e3/uL (140-360); RED CELL DISTRIBUTION WIDTH 13.3 % (11.7-14.4)
[2021-01-04 17:02] LABS: CLARITY,URINE TURBID (CLEAR); COLOR,URINE BROWN (YELLOW); LEUKOCYTE ESTERASE ,URINE LARGE (NEGATIVE)
[2021-01-04 17:03] LABS: KETONES,URINE 1+ (NEGATIVE); NITRITE,URINE NEGATIVE (NEGATIVE); PROTEIN,URINE DIPSTICK >=300 (NEGATIVE); URINE UROBILINOGEN 1 mg/dL (0.2 - 1)
[2021-01-04 17:10] LABS: ALBUMIN 3.7 g/dL (3.5-5.0); ANION GAP 17.4 mmol/L (8-16); CREATININE, SERUM 0.81 mg/dL (0.57-1.11); POTASSIUM 3.4 mmol/L (3.5-5.1)
[2021-01-04 17:11] LABS: BACTERIA,URINE MODERATE /HPF; RBC,URINE >50 /HPF (0-5)
[2021-01-04] MEDS ORDERED: KETOROLAC TROMETHAMINE 30 MG/ML VIAL IV STA (17:54)
[2021-01-04] MEDS ORDERED: CEFTRIAXONE 1 GM VIAL IM ONE (18:00)
[2021-01-04] MEDS: LACTATED RINGER'S 1,000 ML INJ SCH (18:41)
[2021-01-04] MEDS: MORPHINE SULFATE INJ 4 MG/ML INJ 1ML IV PRN (18:49)
[2021-01-04] MEDS ORDERED: ONDANSETRON HCL INJ 2MG/ML 2ML 2 MG/ML VIAL IV PRN (21:45)
[2021-01-04 22:36] VITALS: BP 152/108
[2021-01-04] MEDS ORDERED: AMLODIPINE BES2.5 MG PO (22:36)
[2021-01-04] MEDS ORDERED: CLONIDINE HCL 0.1 MG TAB PO PRN ×2 (22:45→23:45)
[2021-01-04 23:30] VITALS: BP 156/108
[2021-01-05] VITALS (7 sets, daily range): BP systolic 127–144; BP diastolic 67–90
[2021-01-05] MEDS: LACTATED RINGER'S 1,000 ML INJ SCH ×3 (03:10→17:48)
[2021-01-05 06:18] LABS: BASOPHILS % 0.6 % (0.0-1.0); EOSINOPHILS # (AUTO) 0.3 (0.0-0.4); EOSINOPHILS % 4.3 % (0.0-6.0); HEMATOCRIT 38.2 % (34.2-44.1); HEMOGLOBIN 12.9 g/dL (12.0-16.0); LYMPHOCYTES # (AUTO) 2.1 (1.0-3.2); LYMPHOCYTES % 32.4 % (18.0-39.1); MEAN CORPUSCULAR HEMOGLOBIN 29.7 pg (28-32); MEAN CORPUSCULAR HGB CONC 33.8 g/dL (31-35); MONOCYTES # (AUTO) 0.4 (0.2-0.8); MONOCYTES % 6.1 % (4.4-11.3); NEUTROPHILS # (AUTO) 3.7 (2.1-6.9); NEUTROPHILS % 56.1 % (38.7-80.0); PLATELET COUNT 219 x10e3/uL (140-360); RED BLOOD COUNT 4.34 x10e6/uL (3.6-5.1); RED CELL DISTRIBUTION WIDTH 13.3 % (11.7-14.4)
[2021-01-05 06:56] LABS: ANION GAP 12.5 mmol/L (8-16); CALCIUM 9.8 mg/dL (8.4-10.2); CREATININE, SERUM 0.64 mg/dL (0.57-1.11); POTASSIUM 3.5 mmol/L (3.5-5.1)
[2021-01-05] MEDS: CEFTRIAXONE 1 GM in SODIUM CHLORIDE 0.9% 50ML 50 ML IV SCH (08:37)
[2021-01-05] MEDS: NAPROXEN 250 MG TAB PO SCH (16:04)
[2021-01-05] MEDS: OXYBUTYNIN CHLORIDE 5 MG TAB PO SCH (16:04)
[2021-01-05] MEDS: MORPHINE SULFATE INJ 4 MG/ML INJ 1ML IV PRN (21:52)
[2021-01-06] VITALS (9 sets, daily range): BP systolic 114–131; BP diastolic 65–101
[2021-01-06] MEDS: LACTATED RINGER'S 1,000 ML INJ SCH ×3 (03:30→17:44)
[2021-01-06 06:52] LABS: ALBUMIN 3.2 g/dL (3.5-5.0); ALBUMIN/GLOBULIN RATIO 1.2 (0.8-2.0); ANION GAP 11.7 mmol/L (8-16); CALCIUM 9.6 mg/dL (8.4-10.2); CREATININE, SERUM 0.68 mg/dL (0.57-1.11); POTASSIUM 3.7 mmol/L (3.5-5.1)
[2021-01-06] MEDS: TAMSULOSIN HCL 0.4 MG CAP PO SCH (08:02)
[2021-01-06] MEDS: MORPHINE SULFATE INJ 4 MG/ML INJ 1ML IV PRN (08:02)
[2021-01-06] MEDS: OXYBUTYNIN CHLORIDE 5 MG TAB PO SCH ×2 (08:02→16:17)
[2021-01-06] MEDS: CEFTRIAXONE 1 GM in SODIUM CHLORIDE 0.9% 50ML 50 ML IV SCH (08:02)
[2021-01-06] MEDS: AMLODIPINE BESYLATE 5 MG TAB PO SCH (08:02)
[2021-01-06] MEDS: NAPROXEN 250 MG TAB PO SCH ×2 (08:02→16:17)
[2021-01-06] MEDS ORDERED: NON-FORMULARY MEDICATION (Amlodipine Besylate 2.5 MG) PO SCH (09:00)
[2021-01-06] MEDS ORDERED: ONDANSETRON HCL 4 MG ORAL DISINTEGRATING TAB PO PRN (11:00)
[2021-01-06] MEDS: ACETAMINOPHEN 325 MG TAB PO PRN (21:43)
[2021-01-07] VITALS (7 sets, daily range): BP systolic 115–140; BP diastolic 81–90
[2021-01-07] MEDS: LACTATED RINGER'S 1,000 ML INJ SCH ×3 (04:18→17:55)
[2021-01-07] MEDS: NAPROXEN 250 MG TAB PO SCH ×2 (09:19→17:54)
[2021-01-07] MEDS: TAMSULOSIN HCL 0.4 MG CAP PO SCH (09:19)
[2021-01-07] MEDS: OXYBUTYNIN CHLORIDE 5 MG TAB PO SCH ×2 (09:19→17:54)
[2021-01-07] MEDS: AMLODIPINE BESYLATE 5 MG TAB PO SCH (09:19)
[2021-01-07] MEDS: CEFTRIAXONE 1 GM in SODIUM CHLORIDE 0.9% 50ML 50 ML IV SCH (09:21)
[2021-01-08] VITALS (8 sets, daily range): BP systolic 123–142; BP diastolic 76–93
[2021-01-08] MEDS: LACTATED RINGER'S 1,000 ML INJ SCH ×3 (04:25→18:30)
[2021-01-08] MEDS: CEFTRIAXONE 1 GM in SODIUM CHLORIDE 0.9% 50ML 50 ML IV SCH (08:27)
[2021-01-08] MEDS: OXYBUTYNIN CHLORIDE 5 MG TAB PO SCH ×2 (08:27→17:28)
[2021-01-08] MEDS: NAPROXEN 250 MG TAB PO SCH ×2 (08:28→17:28)
[2021-01-08] MEDS: AMLODIPINE BESYLATE 5 MG TAB PO SCH (08:28)
[2021-01-08] MEDS: TAMSULOSIN HCL 0.4 MG CAP PO SCH (08:28)
[2021-01-08] MEDS ORDERED: ENOXAPARIN SOD INJ 40 MG/0.4 ML SYR SC NR ×2 (12:45→18:00)
[2021-01-08] MEDS: ACETAMINOPHEN 325 MG TAB PO PRN (16:42)
[2021-01-08] MEDS: MORPHINE SULFATE INJ 4 MG/ML INJ 1ML IV PRN (22:32)
[2021-01-09] VITALS (8 sets, daily range): BP systolic 127–141; BP diastolic 67–97
[2021-01-09] MEDS: LACTATED RINGER'S 1,000 ML INJ SCH ×3 (02:50→20:43)
[2021-01-09] MEDS: MORPHINE SULFATE INJ 4 MG/ML INJ 1ML IV PRN (06:15)
[2021-01-09 06:30] LABS: BASOPHILS # (AUTO) 0.1 (0.0-0.1); BASOPHILS % 1.1 % (0.0-1.0); EOSINOPHILS # (AUTO) 0.3 (0.0-0.4); EOSINOPHILS % 5.2 % (0.0-6.0); HEMATOCRIT 39.6 % (34.2-44.1); HEMOGLOBIN 13.3 g/dL (12.0-16.0); LYMPHOCYTES # (AUTO) 2.8 (1.0-3.2); LYMPHOCYTES % 44.5 % (18.0-39.1); MEAN CORPUSCULAR HEMOGLOBIN 29.8 pg (28-32); MEAN CORPUSCULAR HGB CONC 33.6 g/dL (31-35); MEAN CORPUSCULAR VOLUME 88.8 fL (81-99); MONOCYTES # (AUTO) 0.4 (0.2-0.8); MONOCYTES % 5.9 % (4.4-11.3); NEUTROPHILS # (AUTO) 2.7 (2.1-6.9); PLATELET COUNT 268 x10e3/uL (140-360); RED BLOOD COUNT 4.46 x10e6/uL (3.6-5.1); RED CELL DISTRIBUTION WIDTH 13.4 % (11.7-14.4)
[2021-01-09 06:53] LABS: ANION GAP 13.2 mmol/L (8-16); CALCIUM 9.8 mg/dL (8.4-10.2); CREATININE, SERUM 0.67 mg/dL (0.57-1.11); POTASSIUM 3.2 mmol/L (3.5-5.1)
[2021-01-09] MEDS: OXYBUTYNIN CHLORIDE 5 MG TAB PO SCH ×2 (08:32→16:03)
[2021-01-09] MEDS: TAMSULOSIN HCL 0.4 MG CAP PO SCH (08:33)
[2021-01-09] MEDS: NAPROXEN 250 MG TAB PO SCH ×2 (08:33→16:03)
[2021-01-09] MEDS: AMLODIPINE BESYLATE 5 MG TAB PO SCH (08:35)
[2021-01-09] MEDS: CEFTRIAXONE 1 GM in SODIUM CHLORIDE 0.9% 50ML 50 ML IV SCH (08:36)
[2021-01-09] MEDS ORDERED: POTASSIUM CHLORIDE 10MEQ EA PO ONE (12:00)
[2021-01-10] VITALS (8 sets, daily range): BP systolic 118–145; BP diastolic 79–93
[2021-01-10] MEDS: LACTATED RINGER'S 1,000 ML INJ SCH ×4 (05:30→22:48)
[2021-01-10 05:52] LABS: BASOPHILS # (AUTO) 0.1 (0.0-0.1); BASOPHILS % 0.8 % (0.0-1.0); EOSINOPHILS # (AUTO) 0.3 (0.0-0.4); EOSINOPHILS % 4.5 % (0.0-6.0); HEMATOCRIT 39.2 % (34.2-44.1); HEMOGLOBIN 13.1 g/dL (12.0-16.0); LYMPHOCYTES # (AUTO) 2.8 (1.0-3.2); MEAN CORPUSCULAR HEMOGLOBIN 29.6 pg (28-32); MEAN CORPUSCULAR HGB CONC 33.4 g/dL (31-35); MEAN CORPUSCULAR VOLUME 88.5 fL (81-99); MONOCYTES # (AUTO) 0.4 (0.2-0.8); MONOCYTES % 5.8 % (4.4-11.3); NEUTROPHILS # (AUTO) 3.5 (2.1-6.9); NEUTROPHILS % 49.6 % (38.7-80.0); PLATELET COUNT 261 x10e3/uL (140-360); RED BLOOD COUNT 4.43 x10e6/uL (3.6-5.1); RED CELL DISTRIBUTION WIDTH 13.4 % (11.7-14.4)
[2021-01-10 06:14] LABS: CALCIUM 10.2 mg/dL (8.4-10.2); CREATININE, SERUM 0.73 mg/dL (0.57-1.11)
[2021-01-10] MEDS: CEFTRIAXONE 1 GM in SODIUM CHLORIDE 0.9% 50ML 50 ML IV SCH (08:42)
[2021-01-10] MEDS: AMLODIPINE BESYLATE 5 MG TAB PO SCH (09:00)
[2021-01-10] MEDS: NAPROXEN 250 MG TAB PO SCH ×2 (09:00→17:19)
[2021-01-10] MEDS: TAMSULOSIN HCL 0.4 MG CAP PO SCH (09:00)
[2021-01-10] MEDS: OXYBUTYNIN CHLORIDE 5 MG TAB PO SCH ×2 (09:00→17:19)
[2021-01-10] MEDS ORDERED: IOPAMIDOL 300MG/ML 50ML INFUS..BTL IV ONE (11:48)
[2021-01-10] MEDS: ACETAMINOPHEN/CODEINE 300MG - 30MG TAB PO PRN ×2 (15:42→23:24)
[2021-01-10] MEDS: MORPHINE SULFATE INJ 4 MG/ML INJ 1ML IV PRN (17:27)
[2021-01-11] VITALS: BP 140/93
[2021-01-11] MEDS: MORPHINE SULFATE INJ 4 MG/ML INJ 1ML IV PRN (01:42)
[2021-01-11] MEDS: LACTATED RINGER'S 1,000 ML INJ SCH ×2 (03:54→10:40)
[2021-01-11 04:00] VITALS: BP 124/84
[2021-01-11 07:41] VITALS: BP 118/90
[2021-01-11] MEDS: CEFTRIAXONE 1 GM in SODIUM CHLORIDE 0.9% 50ML 50 ML IV SCH (08:21)
[2021-01-11] MEDS: OXYBUTYNIN CHLORIDE 5 MG TAB PO SCH (08:22)
[2021-01-11] MEDS: TAMSULOSIN HCL 0.4 MG CAP PO SCH (08:22)
[2021-01-11] MEDS: AMLODIPINE BESYLATE 5 MG TAB PO SCH (08:23)
[2021-01-11] MEDS: NAPROXEN 250 MG TAB PO SCH (08:23)
[2021-01-11 08:31] VITALS: BP 118/90
[2021-01-11] MEDS ORDERED: ULTRAM50 MG PO (10:53)
[2021-01-11 11:14] VITALS: BP 119/61
[2021-01-11] MEDS ORDERED: TRAMADOL HCL 50 MG TAB PO ONE (11:40)
== END 2021-01-11 13:25 | disposition home or self-care (01) | DRG 690 ==
LOC: ER 16:51 → ERHOLD 20:08 → MED/SURG 22:23
PROVIDERS: ADMIT Internal Medicine; ATTEND Internal Medicine
PROC: 0TF3XZZ Fragmentation in Right Kidney Pelvis, External Approach (ICD-10-PCS; principal; 2021-01-10 12:07)
DX: N13.6 Pyonephrosis (principal); Z96.0 Presence of urogenital implants; I10 Essential (primary) hypertension; E87.6 Hypokalemia; K76.0 Fatty (change of) liver, not elsewhere classified; E66.9 Obesity, unspecified; Z68.34 Body mass index [BMI] 34.0-34.9, adult; Z87.442 Personal history of urinary calculi; Z90.49 Acquired absence of other specified parts of digestive tract; Z83.3 Family history of diabetes mellitus
CPT/HCPCS: 36415; 50590; 74018; 74176; 80048; 80053; 81001; 84550; 84702; 85025; 87086; 96376; 99285; J0696; J1650; J1885; J2270; J7121; U0002

== ENCOUNTER 2021-01-18 12:34 | Inpatient (IN) | payer OTHER ==
[~2021-01-18] VITALS: Ht 182.9 cm; Wt 98.0 kg
[~2021-01-18 12:34] MED LIST changes: +AMLODIPINE BES2.5 MG PO; +ULTRAM50 MG PO
[2021-01-18] MEDS ORDERED: KETOROLAC TROMETHAMINE 30 MG/ML VIAL IV STA (12:50)
[2021-01-18] MEDS ORDERED: SODIUM CHLORIDE 0.9% 1000ML 1,000 ML IV SCH (13:00)
[2021-01-18 13:05] LABS: BASOPHILS # (AUTO) 0.1 (0.0-0.1); BASOPHILS % 1.1 % (0.0-1.0); EOSINOPHILS # (AUTO) 0.2 (0.0-0.4); EOSINOPHILS % 2.5 % (0.0-6.0); HEMATOCRIT 42.1 % (34.2-44.1); LYMPHOCYTES # (AUTO) 2.2 (1.0-3.2); LYMPHOCYTES % 28.9 % (18.0-39.1); MEAN CORPUSCULAR HEMOGLOBIN 30.1 pg (28-32); MEAN CORPUSCULAR HGB CONC 33.3 g/dL (31-35); MEAN CORPUSCULAR VOLUME 90.5 fL (81-99); MONOCYTES # (AUTO) 0.7 (0.2-0.8); MONOCYTES % 9.1 % (4.4-11.3); NEUTROPHILS # (AUTO) 4.4 (2.1-6.9); NEUTROPHILS % 58.1 % (38.7-80.0); PLATELET COUNT 251 x10e3/uL (140-360); RED BLOOD COUNT 4.65 x10e6/uL (3.6-5.1); RED CELL DISTRIBUTION WIDTH 13.4 % (11.7-14.4)
[2021-01-18 13:40] LABS: CLARITY,URINE CLEAR (CLEAR); COLOR,URINE YELLOW (YELLOW); LEUKOCYTE ESTERASE ,URINE MODERATE (NEGATIVE); NITRITE,URINE NEGATIVE (NEGATIVE); PROTEIN,URINE DIPSTICK 2+ (NEGATIVE)
[2021-01-18 13:41] LABS: KETONES,URINE NEGATIVE (NEGATIVE); URINE UROBILINOGEN 0.2 mg/dL (0.2 - 1)
[2021-01-18 13:43] LABS: ALBUMIN 3.9 g/dL (3.5-5.0); ALBUMIN/GLOBULIN RATIO 1.1 (0.8-2.0); ANION GAP 14.3 mmol/L (8-16); CREATININE, SERUM 0.89 mg/dL (0.57-1.11); POTASSIUM 3.3 mmol/L (3.5-5.1)
[2021-01-18 14:09] LABS: BACTERIA,URINE MODERATE /HPF; CALCIUM OXALATE CRYSTALS,UR FEW (FEW); EPITHELIAL CELLS,URINE MANY /LPF; RBC,URINE 21-50 /HPF (0-5)
[2021-01-18] MEDS ORDERED: CEFTRIAXONE 1 GM in SODIUM CHLORIDE 0.9% 50ML 50 ML IV ONE (14:45)
[2021-01-18] MEDS: KETOROLAC TROMETHAMINE 30 MG/ML VIAL IV PRN (19:02)
[2021-01-18 21:20] VITALS: BP 168/103
[2021-01-18] MEDS ORDERED: HYDRALAZINE HCL 20 MG/ML VIAL IV PRN (22:15)
[2021-01-18] MEDS ORDERED: HYDROMORPHONE 1MG/1ML INJ IV PRN (22:15)
[2021-01-19] VITALS (10 sets, daily range): BP systolic 117–168; BP diastolic 78–103
[2021-01-19 05:26] LABS: BASOPHILS # (AUTO) 0.1 (0.0-0.1); BASOPHILS % 0.8 % (0.0-1.0); EOSINOPHILS # (AUTO) 0.1 (0.0-0.4); EOSINOPHILS % 1.3 % (0.0-6.0); HEMATOCRIT 39.8 % (34.2-44.1); HEMOGLOBIN 13.6 g/dL (12.0-16.0); LYMPHOCYTES # (AUTO) 1.4 (1.0-3.2); MEAN CORPUSCULAR HEMOGLOBIN 29.5 pg (28-32); MEAN CORPUSCULAR HGB CONC 34.2 g/dL (31-35); MEAN CORPUSCULAR VOLUME 86.3 fL (81-99); MONOCYTES # (AUTO) 0.6 (0.2-0.8); MONOCYTES % 7.1 % (4.4-11.3); NEUTROPHILS # (AUTO) 5.6 (2.1-6.9); NEUTROPHILS % 72.5 % (38.7-80.0); PLATELET COUNT 231 x10e3/uL (140-360); RED BLOOD COUNT 4.61 x10e6/uL (3.6-5.1); RED CELL DISTRIBUTION WIDTH 13.3 % (11.7-14.4)
[2021-01-19 05:43] LABS: INR 0.99; PROTHROMBIN TIME 13.3 seconds (11.9-14.5)
[2021-01-19 05:50] LABS: ALBUMIN 3.6 g/dL (3.5-5.0); ALBUMIN/GLOBULIN RATIO 1.1 (0.8-2.0); CALCIUM 9.5 mg/dL (8.4-10.2); CREATININE, SERUM 0.84 mg/dL (0.57-1.11)
[2021-01-19] MEDS: KETOROLAC TROMETHAMINE 30 MG/ML VIAL IV PRN ×2 (09:11→21:35)
[2021-01-19] MEDS ORDERED: MORPHINE SULFATE INJ 4 MG/ML INJ 1ML IV PRN (10:15)
[2021-01-19] MEDS ORDERED: POTASSIUM CHLORIDE 20MEQ/100ML 300 ML IV ONE (11:00)
[2021-01-19] MEDS: CEFTRIAXONE 1 GM in SODIUM CHLORIDE 0.9% 50ML 50 ML IV SCH (11:04)
[2021-01-19] MEDS ORDERED: HYDROMORPHONE 1MG/1ML INJ IV PRN (12:45)
[2021-01-20] VITALS (9 sets, daily range): BP systolic 127–142; BP diastolic 82–93
[2021-01-20] MEDS ORDERED: IOPAMIDOL 300MG/ML 50ML INFUS..BTL IV ONE (07:34)
[2021-01-20] MEDS: CEFTRIAXONE 1 GM in SODIUM CHLORIDE 0.9% 50ML 50 ML IV SCH (09:07)
[2021-01-20] MEDS ORDERED: FLUCONAZOLE 100 MG TAB PO ONE (12:00)
[2021-01-20] MEDS: MORPHINE SULFATE INJ 4 MG/ML INJ 1ML IV PRN ×3 (12:06→23:55)
[2021-01-20] MEDS ORDERED: PROPOFOL IV EMULSION 10 MG/ML 20 ML VIAL ONE (12:16)
[2021-01-20] MEDS ORDERED: ONDANSETRON HCL INJ 2MG/ML 2ML 2 MG/ML VIAL ONE (12:16)
[2021-01-20] MEDS ORDERED: POVIDONE IODINE 0.05% 0.05 % ML PO ONE (12:16)
[2021-01-20] MEDS ORDERED: DEXAMETHASONE SOD PHOS INJ 4 MG/ML SDV ONE (12:16)
[2021-01-20] MEDS ORDERED: SEVOFLURANE INHAL SOLN 250 ML PEN BTL ONE (12:16)
[2021-01-20] MEDS ORDERED: LIDOCAINE HCL 2% LOCAL INJ 5 ML SDV VIAL INJ ONE (12:16)
[2021-01-20] MEDS ORDERED: TRAMADOL HCL 50 MG TAB PO PRN (15:30)
[2021-01-21] VITALS (8 sets, daily range): BP systolic 122–150; BP diastolic 65–95
[2021-01-21] MEDS: KETOROLAC TROMETHAMINE 30 MG/ML VIAL IV PRN (01:53)
[2021-01-21] MEDS: MORPHINE SULFATE INJ 4 MG/ML INJ 1ML IV PRN (05:48)
[2021-01-21] MEDS: CEFTRIAXONE 1 GM in SODIUM CHLORIDE 0.9% 50ML 50 ML IV SCH (08:20)
[2021-01-21] MEDS ORDERED: FLUCONAZOLE100 MG PO (16:38)
== END 2021-01-21 17:39 | disposition home or self-care (01) | DRG 694 ==
LOC: ER 12:39 → ERHOLD 14:44 → MED/SURG3 19:53 → OBSVTOIN 01-20 15:29
PROVIDERS: ADMIT Internal Medicine; ATTEND Internal Medicine
PROC: 0TP98DZ Removal of Intraluminal Device from Ureter, Via Natural or Artificial Opening Endoscopic (ICD-10-PCS; principal; 2021-01-20 07:30)
PROC: BT1D1ZZ Fluoroscopy of Right Kidney, Ureter and Bladder using Low Osmolar Contrast (ICD-10-PCS; 2021-01-20 07:30)
DX: N13.2 Hydronephrosis with renal and ureteral calculous obstruction (principal); T83.84XA Pain due to genitourinary prosthetic devices, implants and grafts, initial encounter; Y73.2 Prosthetic and other implants, materials and accessory gastroenterology and urology devices associated with adverse incidents; E87.6 Hypokalemia; I10 Essential (primary) hypertension; E66.9 Obesity, unspecified; Z68.29 Body mass index [BMI] 29.0-29.9, adult
CPT/HCPCS: 36415; 74018; 74176; 74420; 80053; 81001; 81025; 85025; 85610; 87086; 99284; C1758; C1769; G0378; J0360; J0696; J1100; J1170; J1885; J2001; J2270; J2405; J3480; J7030; U0002